=== PATIENT | female | born 1985 | race African-American/Black ===

== ENCOUNTER 2018-08-21 12:28 | Emergency (ER) | payer SELFPAY ==
--- NOTE | 2018-08-21 13:43 | ER Document Report ---
ED Medical Screen (RME) - General Chief Complaint: Blood Pressure Problem Stated Complaint: BLOOD PRESSURE CONCERNS Time Seen by Provider: 08/21/18 13:27 Primary Care Provider: NAREN MCKINNEY [Primary Care Provider] - Follow up as needed Notes: 33-year-old female complaining of headache and weakness onset last night with her high blood pressure. Patient admits a history of high blood pressure, states that this headache and weakness as well as dizziness is the same as it always is when her blood pressure gets high. She did call EMS, EMS recorded elevated blood pressures in the 150s and 160 systolic, this morning patient's blood pressure was 170s at home. Patient last took antihypertensives last night. States she took her usual hydrochlorothiazide. Has not taken any this morning. Patient does have a history of hypertension. TRAVEL OUTSIDE OF THE [place] IN LAST 30 DAYS: No - Related Data Allergies/Adverse Reactions: Penicillins Allergy (Verified 08/21/18 13:28) Past Medical History - General Information source: Patient - Social History Cigarette use (# per day): Yes Frequency of alcohol use: None Drug Abuse: None - Past Medical History Cardiac Medical History: Reports: Hx Hypertension Pulmonary Medical History: Reports: Hx Asthma Renal/ Medical History: Denies: Hx Peritoneal Dialysis - Immunizations Hx Diphtheria, Pertussis, Tetanus Vaccination: Yes Review of Systems - Review of Systems Cardiovascular: See HPI, Dizziness Neurological/Psychological: See HPI, Headaches Physical Exam - Vital signs Vitals: Temp Pulse Resp BP Pulse Ox 98.7 F 56 L 15 139/87 H 100 08/21/18 13:09 08/21/18 13:09 08/21/18 13:09 08/21/18 13:09 08/21/18 13:09 Interpretation: Bradycardic - Notes Notes: Generalsitting in a wheelchair, appears fatigued. Follows commands but slowly Neuro5 out of 5 muscle strength on the left, 4-5 muscle strength on the right bilateral upper and lower extremities. No facial droop. Oriented to person place and time. Course - Re-evaluation Re-evalutation: 08/21/18 13:42 Patient will be sent for CT scan given the focal neurologic deficits. She is out of timeframe for TPA. Providers in the main side of the emergency department notified. - Vital Signs Vital signs: Temp Pulse Resp BP Pulse Ox 98.7 F 56 L 15 139/87 H 100 08/21/18 13:09 08/21/18 13:09 08/21/18 13:09 08/21/18 13:09 08/21/18 13:09 Doctor's Discharge - Discharge Referrals: LOCALMD,NO [Primary Care Provider] - Follow up as needed
[2018-08-21 14:11] LABS: ABSOLUTE MONOCYTES (AUTO) 0.3 10^3/uL (0.1-1.4); ABSOLUTE NEUT (AUTO) 2.4 10^3/uL (1.7-8.2); BASOPHILS % (AUTO) 1.1 % (0-2); EOSINOPHILS % (AUTO) 0.6 % (0-6); HEMATOCRIT 40.1 % (36.0-47.0); HEMOGLOBIN 13.6 g/dL (12.0-15.5); LYMPHOCYTES % (AUTO) 27.8 % (13-45); MEAN CORPUSCULAR HEMOGLOBIN 29.6 pg (27.0-33.4); MEAN CORPUSCULAR HGB CONC 33.9 g/dL (32.0-36.0); MEAN CORPUSCULAR VOLUME 88 fl (80-97); MONOCYTES % (AUTO) 7.2 % (3-13); PLATELET COUNT 180 10^3/uL (150-450); RED BLOOD COUNT 4.58 10^6/uL (3.72-5.28); RED CELL DISTRIBUTION WIDTH 13.4 % (11.5-14.0); SEGMENTED NEUTROPHILS % (AUTO) 63.3 % (42-78); TOTAL CELLS COUNTED % (AUTO) 100 %; WHITE BLOOD COUNT 3.8 10^3/uL (4.0-10.5)
[2018-08-21 14:16] LABS: INTERNATIONAL RATION (INR) 1.03; PARTIAL THROMBOPLASTIN TIME 29.9 SEC (23.5-35.8)
[2018-08-21 14:32] LABS: ALANINE AMINOTRANSFERASE 32 U/L (9-52); ALBUMIN 4.4 g/dL (3.5-5.0); ALKALINE PHOSPHATASE 52 U/L (38-126); ANION GAP 8 (5-19); ASPARTATE AMINO TRANSFERASE 22 U/L (14-36); BILIRUBIN,DIRECT 0.1 mg/dL (0.0-0.4); BILIRUBIN,TOTAL 0.5 mg/dL (0.2-1.3); BLOOD UREA NITROGEN 14 mg/dL (7-20); CALCIUM 9.2 mg/dL (8.4-10.2); CARBON DIOXIDE 31 mmol/L (22-30); CHLORIDE 102 mmol/L (98-107); CREATINE KINASE 102 U/L (30-135); GLUCOSE 99 mg/dL (75-110); POTASSIUM 3.4 mmol/L (3.6-5.0); SODIUM 140.7 mmol/L (137-145); TOTAL PROTEIN 7.3 g/dL (6.3-8.2)
--- NOTE | 2018-08-21 14:39 | RADIOLOGY REPORT (SQ) ---
EXAM DESCRIPTION: CHEST SINGLE VIEW COMPLETED DATE/TIME: 08/21/2018 2:24 pm REASON FOR STUDY: right sided weakness, [place] COMPARISON: Chest x-ray 07/03/2007. EXAM PARAMETERS: NUMBER OF VIEWS: One view. TECHNIQUE: Single frontal radiographic view of the chest acquired. RADIATION DOSE: NA LIMITATIONS: The patient is in a lordotic position. FINDINGS: LUNGS AND PLEURA: No consolidation, pneumothorax or pleural effusion. MEDIASTINUM AND HILAR STRUCTURES: No masses. Contour normal. HEART AND VASCULAR STRUCTURES: Heart upper normal limit in size. Normal vasculature. BONES: No acute findings. HARDWARE: None in the chest. IMPRESSION: NO ACUTE RADIOGRAPHIC FINDING IN THE CHEST. TECHNICAL DOCUMENTATION: JOB ID: [id number] 2010 [employer]- All Rights Reserved Reading location - IP/workstation name: [email or web address]
[2018-08-21 14:44] LABS: CREATINE KINASE MB 0.31 ng/mL (<4.55)
--- NOTE | 2018-08-21 14:44 | RADIOLOGY REPORT (SQ) ---
EXAM DESCRIPTION: CT HEAD WITHOUT COMPLETED DATE/TIME: 08/21/2018 2:20 pm REASON FOR STUDY: right sided weakness, [place] COMPARISON: None. TECHNIQUE: Axial images acquired through the brain without intravenous contrast. Images reviewed wi th bone, brain and subdural windows. Images stored on PACS. All CT scanners at this facility use dose modulation, iterative reconstruction, and/or weight based d osing when appropriate to reduce radiation dose to as low as reasonably achievable (ALARA). [facility]: Dose Right [facility]: CareDose [facility]: Dose Right [facility]: Teradose 4D [facility]: [employer] RADIATION DOSE: CT Rad equipment meets quality standard of care and radiation dose reduction techniq ues were employed. CTDIvol: 53.2 mGy. DLP: 1150 mGy-cm. mGy. LIMITATIONS: None. FINDINGS: VENTRICLES: Normal size and contour. CEREBRUM: No mass effect. No hemorrhage. No midline shift. Normal espinoza/white matter differentiatio n. No evidence for acute territorial infarction. CEREBELLUM: No mass effect. No hemorrhage. No alteration of density. No evidence for acute infarct ion. EXTRAAXIAL SPACES: No fluid collections. ORBITS AND GLOBE: Symmetrical contour of the globes. CALVARIUM: No depressed skull fracture. PARANASAL SINUSES: No air-fluid level. Mucous retention cyst/polyp at the right maxillary sinus. SOFT TISSUES: No hematoma. IMPRESSION: No acute intracranial hemorrhage or acute territorial infarct. EVIDENCE OF ACUTE STROKE: NO. COMMENT: Quality ID # 436: Final reports with documentation of one or more dose reduction techniques (e.g., Automated exposure control, adjustment of the mA and/or kV according to patient size, use of iterative reconstruction technique) TECHNICAL DOCUMENTATION: JOB ID: [id number] [place]-[id number] 2010 [employer]- All Rights Reserved Reading location - IP/workstation name: [email or web address]
[2018-08-21 14:46] LABS: TROPONIN I < 0.012 ng/mL
--- NOTE | 2018-08-21 15:28 | ER Document Report ---
ED Blood Pressure Problem - General Chief Complaint: Blood Pressure Problem Stated Complaint: BLOOD PRESSURE CONCERNS Time Seen by Provider: 08/21/18 13:27 Primary Care Provider: [facility] [Provider Group] - Follow up as needed TRAVEL OUTSIDE OF THE [place] IN LAST 30 DAYS: No - Related Data Allergies/Adverse Reactions: Penicillins Allergy (Verified 08/21/18 13:28) Past Medical History - General Information source: Patient - Social History Smoking Status: Former Smoker Cigarette use (# per day): Yes Frequency of alcohol use: None Drug Abuse: None Family History: Reviewed & Not Pertinent Patient has suicidal ideation: No Patient has homicidal ideation: No - Past Medical History Cardiac Medical History: Reports: Hx Hypertension Pulmonary Medical History: Reports: Hx Asthma Renal/ Medical History: Denies: Hx Peritoneal Dialysis - Immunizations Hx Diphtheria, Pertussis, Tetanus Vaccination: Yes Physical Exam - Vital signs Vitals: Temp Pulse Resp BP Pulse Ox 98.7 F 56 L 15 139/87 H 100 08/21/18 13:09 08/21/18 13:09 08/21/18 13:09 08/21/18 13:09 08/21/18 13:09 Course - Vital Signs Vital signs: Temp Pulse Resp BP Pulse Ox 98.7 F 59 L 15 145/102 H 100 08/21/18 13:09 08/21/18 14:00 08/21/18 15:01 08/21/18 15:01 08/21/18 15:01 - Laboratory Result Diagrams: 08/21/18 14:01 08/21/18 14:01 Laboratory results interpreted by me: 08/21/18 08/21/18 14:01 14:01 WBC 3.8 L Potassium 3.4 L Carbon Dioxide 31 H Discharge - Discharge Clinical Impression: Headache Qualifiers: Headache type: unspecified Headache chronicity pattern: unspecified pattern Intractability: not intractable Qualified Code(s): R51 - Headache Hypertension Qualifiers: Hypertension type: unspecified Qualified Code(s): I10 - Essential (primary) hypertension Condition: Stable Disposition: HOME, SELF-CARE Instructions: Family Physicians / Practices, High Blood Pressure ([facility]) Additional Instructions: Please return to the emergency department if you have any worsening, or concern of your symptoms. Please return to the emergency department if you develop chest pain, difficulty breathing, severe abdominal pain, or ongoing vomiting. Please follow-up with your primary care physician in 2-3 days and any other recommended physicians. If prescribed, take all medications as directed. If you have any questions or concerns do not hesitate to return the emergency department for evaluation. Referrals: [facility] [Provider Group] - Follow up as needed
[2018-08-21] MEDS ORDERED: ACETAMINOPHEN 325 MG TABLET PO ONE (15:46)
--- NOTE | 2018-08-21 15:52 | ER Document Report ---
ED Blood Pressure Problem - General Chief Complaint: Blood Pressure Problem Stated Complaint: BLOOD PRESSURE CONCERNS Time Seen by Provider: 08/21/18 13:27 Primary Care Provider: NAREN MCKINNEY [Primary Care Provider] - Follow up as needed TRAVEL OUTSIDE OF THE [place] IN LAST 30 DAYS: No - HPI Notes: Patient is a 33-year-old female that presents to the emergency department for chief complaint of hypertension. Patient reports her blood pressure has been in the 160s 170s systolic at home over the last few days. She states she has had intermittent lightheadedness and headaches. She describes the headache as mild and diffuse. She has no associated vision changes nausea, vomiting, numbness or weakness. Patient does take hydrochlorothiazide and has been compliant with this medicine. She states she takes the 12.5 mg once daily. She does not currently have a primary care provider but states she has refills on this medicine. Past Medical History: Hypertension Past Surgical History: Reviewed in chart Social History: Denies tobacco and alcohol Family History: Reviewed and noncontributory for presenting illness Allergies: Reviewed, see documented allergy list. REVIEW OF SYSTEMS: CONSTITUTIONAL : No fever No chills No diaphoresis No recent illness EENT: No vision changes No congestion No sore throat CARDIOVASCULAR: No chest pain No palpitations RESPIRATORY: No shortness of breath No cough No difficulty breathing GASTROINTESTINAL: No abdominal pain No nausea No vomiting No diarrhea GENITOURINARY: No dysuria No hematuria No difficulty urinating MUSCULOSKELETAL: No back pain No leg pain No arm pain SKIN: No rashes No lesions LYMPHATIC: No swollen, enlarged glands. NEUROLOGICAL: lightheadedness headache No weakness No paresthesias PSYCHIATRIC: No anxiety No depression PHYSICAL EXAMINATION: Vital signs reviewed, nursing noted reviewed. GENERAL: Well-appearing, well-nourished and in no acute distress. HEAD: Atraumatic, normocephalic. EYES: Eyes appear normal, extraocular movements intact, sclera anicteric, conjunctiva are normal. ENT: nares patent, oropharynx clear without exudates. Moist mucous membranes. NECK: Normal range of motion, supple without lymphadenopathy LUNGS: Breath sounds clear to auscultation bilaterally and equal. No wheezes rales or rhonchi. HEART: Regular rate and rhythm without murmurs ABDOMEN: Soft, nontender, normoactive bowel sounds. No rebound, guarding, or rigidity. No masses appreciated. EXTREMITIES: Nontender, good range of motion, no pitting or edema. NEUROLOGICAL: No focal neurological deficits. Moves all extremities spontaneously Motor and sensory grossly intact on exam. PSYCH: Normal mood, normal affect. SKIN: Warm, Dry, normal turgor, no rashes or lesions noted on exposed skin - Related Data Allergies/Adverse Reactions: Penicillins Allergy (Verified 08/21/18 13:28) Past Medical History - General Information source: Patient - Social History Smoking Status: Former Smoker Cigarette use (# per day): Yes Frequency of alcohol use: None Drug Abuse: None Family History: Reviewed & Not Pertinent Patient has suicidal ideation: No Patient has homicidal ideation: No - Past Medical History Cardiac Medical History: Reports: Hx Hypertension Pulmonary Medical History: Reports: Hx Asthma Renal/ Medical History: Denies: Hx Peritoneal Dialysis - Immunizations Hx Diphtheria, Pertussis, Tetanus Vaccination: Yes Physical Exam - Vital signs Vitals: Temp Pulse Resp BP Pulse Ox 98.7 F 56 L 15 139/87 H 100 08/21/18 13:09 08/21/18 13:09 08/21/18 13:09 08/21/18 13:09 08/21/18 13:09 Course - Re-evaluation Re-evalutation: 08/21/18 15:51 Vitals reviewed. Nursing notes reviewed. Patient is afebrile and nontoxic in appearance. She states her headache is very mild and was given Tylenol for symptom medic management. CT brain shows no intracranial process. Patient had a complete cardiac workup which is normal. Her EKG shows sinus bradycardia but she is otherwise hemodynamically stable. Patient has refills on her hydrochlorothiazide and was encouraged to continue taking her medication. She did not require blood pressure management in the ED and her current blood pressure is 146/91. I did discuss low-sodium diet and taking Tylenol and Motrin as needed for symptoms as well as staying well-hydrated. Patient will be referred to primary care to establish for follow-up. She is in agreement with this and stable at discharge. Laboratory 08/21/18 08/21/18 08/21/18 14:01 14:01 14:01 WBC 3.8 L RBC 4.58 Hgb 13.6 Hct 40.1 MCV 88 MCH 29.6 MCHC 33.9 RDW 13.4 Plt Count 180 Seg Neutrophils % 63.3 Lymphocytes % 27.8 Monocytes % 7.2 Eosinophils % 0.6 Basophils % 1.1 Absolute Neutrophils 2.4 Absolute Lymphocytes 1.0 Absolute Monocytes 0.3 Absolute Eosinophils 0.0 Absolute Basophils 0.0 PT 14.0 INR 1.03 APTT 29.9 Sodium 140.7 Potassium 3.4 L Chloride 102 Carbon Dioxide 31 H Anion Gap 8 BUN 14 Creatinine 0.72 Est GFR ( Amer) > 60 Est GFR (Non-Af Amer) > 60 Glucose 99 Calcium 9.2 Total Bilirubin 0.5 Direct Bilirubin 0.1 Neonat Total Bilirubin Not Reportable Neonat Direct Bilirubin Not Reportable Neonat Indirect Bili Not Reportable AST 22 ALT 32 Alkaline Phosphatase 52 Creatine Kinase 102 CK-MB (CK-2) Troponin I Total Protein 7.3 Albumin 4.4 08/21/18 14:01 WBC RBC Hgb Hct MCV MCH MCHC RDW Plt Count Seg Neutrophils % Lymphocytes % Monocytes % Eosinophils % Basophils % Absolute Neutrophils Absolute Lymphocytes Absolute Monocytes Absolute Eosinophils Absolute Basophils PT INR APTT Sodium Potassium Chloride Carbon Dioxide Anion Gap BUN Creatinine Est GFR ( Amer) Est GFR (Non-Af Amer) Glucose Calcium Total Bilirubin Direct Bilirubin Neonat Total Bilirubin Neonat Direct Bilirubin Neonat Indirect Bili AST ALT Alkaline Phosphatase Creatine Kinase CK-MB (CK-2) 0.31 Troponin I < 0.012 Total Protein Albumin Chest X-Ray 08/21/18 13:37 IMPRESSION: NO ACUTE RADIOGRAPHIC FINDING IN THE CHEST. Head CT 08/21/18 13:37 IMPRESSION: No acute intracranial hemorrhage or acute territorial infarct. EVIDENCE OF ACUTE STROKE: NO. - Vital Signs Vital signs: Temp Pulse Resp BP Pulse Ox 98.7 F 59 L 15 145/102 H 100 08/21/18 13:09 08/21/18 14:00 08/21/18 15:01 08/21/18 15:01 08/21/18 15:01 - Laboratory Result Diagrams: 08/21/18 14:01 08/21/18 14:01 Laboratory results interpreted by me: 08/21/18 08/21/18 14:01 14:01 WBC 3.8 L Potassium 3.4 L Carbon Dioxide 31 H - EKG Interpretation by Me Additional EKG results interpreted by me: 08/21/18 15:52 Interpreted by myself [id number]: Sinus bradycardia, rate 50, normal axis, no ectopy, no STEMI Discharge - Discharge Clinical Impression: Hypertension Qualifiers: Hypertension type: unspecified Qualified Code(s): I10 - Essential (primary) hypertension Headache Qualifiers: Headache type: unspecified Headache chronicity pattern: unspecified pattern Intractability: not intractable Qualified Code(s): R51 - Headache Condition: Stable Disposition: HOME, SELF-CARE Instructions: High Blood Pressure ([facility]), Family Physicians / Practices Additional Instructions: Please return to the emergency department if you have any worsening, or concern of your symptoms. Please return to the emergency department if you develop chest pain, difficulty breathing, severe abdominal pain, or ongoing vomiting. Please follow-up with your primary care physician in 2-3 days and any other r ecommended physicians. If prescribed, take all medications as directed. If you have any questions or concerns do not hesitate to return the emergency department for evaluation. Referrals: [facility] [Provider Group] - Follow up as needed
[2018-08-21 16:14] VITALS: BP 132/100
--- NOTE | 2018-08-21 18:02 | EKG REPORT ---
SEVERITY:- BORDERLINE ECG - SINUS RHYTHM PROBABLE LEFT ATRIAL ABNORMALITY BORDERLINE T ABNORMALITIES, ANT-LAT LEADS : Confirmed by: Odalys Liu MD 21-Aug-2018 18:02:13
== END 2018-08-21 16:08 | disposition home or self-care (01) ==
LOC: ER 12:28
DX: I10 Essential (primary) hypertension (principal); R51 Headache; R42 Dizziness and giddiness; Z79.899 Other long term (current) drug therapy; Z87.891 Personal history of nicotine dependence; J45.909 Unspecified asthma, uncomplicated
CPT/HCPCS: 36415; 70450; 71045; 80053; 82550; 82553; 84484; 85025; 85610; 85730; 93005; 93010; 99284

== ENCOUNTER 2019-05-01 12:13 | Emergency (ER) | payer SELFPAY ==
--- NOTE | 2019-05-01 12:43 | ER Document Report ---
ED Medical Screen (RME) - General Chief Complaint: High Blood Pressure Stated Complaint: BLOOD PRESSURE ISSUES Time Seen by Provider: 05/01/19 12:31 Notes: Patient is a 34-year-old female who presents to the emergency department with a high blood pressure reading. Patient has a past medical history of hypertension and was supposed to be on blood pressure medications, but was not. Patient states that she felt nauseous yesterday. This morning she was brought to urgent care and her blood pressure was elevated. Patient also has complaints of right- sided numbness and weakness. The numbness and weakness started this morning. Patient also states that she has history of mass in her head that was diagnosed in [place] a few years ago. Exam: 4 out of 5 strength in right upper extremity. I have greeted and performed a rapid initial assessment of this patient. A comprehensive ED assessment and evaluation of the patient, analysis of test results and completion of medical decision making process will be conducted by an additional ED providers. TRAVEL OUTSIDE OF THE [place] IN LAST 30 DAYS: No - Related Data Allergies/Adverse Reactions: Penicillins Allergy (Verified 08/21/18 13:28) Past Medical History - Social History Chew tobacco use (# tins/day): No Frequency of alcohol use: None Drug Abuse: None - Past Medical History Cardiac Medical History: Reports: Hx Hypertension Pulmonary Medical History: Reports: Hx Asthma Renal/ Medical History: Denies: Hx Peritoneal Dialysis - Immunizations Hx Diphtheria, Pertussis, Tetanus Vaccination: Yes Physical Exam - Vital signs Vitals: Temp Pulse Resp BP Pulse Ox 97.9 F 65 18 146/87 H 100 05/01/19 12:27 05/01/19 12:27 05/01/19 12:27 05/01/19 12:27 05/01/19 12:27 Course - Vital Signs Vital signs: Temp Pulse Resp BP Pulse Ox 97.9 F 65 18 146/87 H 100 05/01/19 12:27 05/01/19 12:27 05/01/19 12:27 05/01/19 12:27 05/01/19 12:27
[2019-05-01 13:15] LABS: ABSOLUTE LYMPHOCYTES (AUTO) 1.3 10^3/uL (0.5-4.7); ABSOLUTE MONOCYTES (AUTO) 0.2 10^3/uL (0.1-1.4); ABSOLUTE NEUT (AUTO) 1.2 10^3/uL (1.7-8.2); BASOPHILS % (AUTO) 1.4 % (0-2); EOSINOPHILS % (AUTO) 1.3 % (0-6); HEMOGLOBIN 11.7 g/dL (12.0-15.5); LYMPHOCYTES % (AUTO) 47.2 % (13-45); MEAN CORPUSCULAR HEMOGLOBIN 27.9 pg (27.0-33.4); MEAN CORPUSCULAR HGB CONC 32.5 g/dL (32.0-36.0); MEAN CORPUSCULAR VOLUME 86 fl (80-97); MONOCYTES % (AUTO) 8.1 % (3-13); PLATELET COUNT 193 10^3/uL (150-450); RED BLOOD COUNT 4.21 10^6/uL (3.72-5.28); RED CELL DISTRIBUTION WIDTH 13.3 % (11.5-14.0); TOTAL CELLS COUNTED % (AUTO) 100 %; WHITE BLOOD COUNT 2.8 10^3/uL (4.0-10.5)
[2019-05-01 13:22] LABS: APPEARANCE,URINE SLIGHTLY-CLOUDY; BILIRUBIN,URINE NEGATIVE (NEGATIVE); COLOR,URINE YELLOW; GLUCOSE, URINE NEGATIVE (NEGATIVE); KETONES,URINE NEGATIVE (NEGATIVE); PROTEIN,URINE NEGATIVE (NEGATIVE); URINE SPECIFIC GRAVITY 1.014; UROBILINOGEN,URINE NEGATIVE mg/dL (<2.0)
--- NOTE | 2019-05-01 13:27 | RADIOLOGY REPORT (SQ) ---
EXAM DESCRIPTION: CT HEAD WITHOUT COMPLETED DATE/TIME: 05/01/2019 1:09 pm REASON FOR STUDY: weakness; headache COMPARISON: None. TECHNIQUE: Axial images acquired through the brain without intravenous contrast. Images reviewed wi th bone, brain and subdural windows. Images stored on PACS. All CT scanners at this facility use dose modulation, iterative reconstruction, and/or weight based d osing when appropriate to reduce radiation dose to as low as reasonably achievable (ALARA). [facility]: Dose Right [facility]: CareDose [facility]: Dose Right [facility]: Teradose 4D [facility]: [employer] LIMITATIONS: None. FINDINGS: There is no acute intracranial hemorrhage, vascular territorial infarct, extra-axial fluid collection, mass effect, or midline shift. There is no effacement of the cerebral sulci or basal diaz barachnoid cisterns. The espinoza-white matter differentiation is preserved. The caliber the ventricles is concordant with the degree of sulcation. The orbits and globes are intact. The paranasal sinuses are clear. There is no fracture of the calv arium. IMPRESSION: No acute intracranial abnormality. EVIDENCE OF ACUTE STROKE: NO. COMMENT: Quality ID # 436: Final reports with documentation of one or more dose reduction techniques (e.g., Automated exposure control, adjustment of the mA and/or kV according to patient size, use of iterative reconstruction technique) TECHNICAL DOCUMENTATION: JOB ID: [id number] [employer]- All Rights Reserved Reading location - IP/workstation name: [email or web address]
[2019-05-01 13:38] LABS: URINE AMPHETAMINES SCREEN NEGATIVE; URINE BARBITURATES SCREEN NEGATIVE; URINE BENZODIAZEPINES SCREEN NEGATIVE; URINE COCAINE SCREEN NEGATIVE; URINE MARIJUANA (THC) SCREEN NEGATIVE; URINE METHADONE SCREEN NEGATIVE; URINE PHENCYCLIDINE SCREEN NEGATIVE
[2019-05-01 13:41] LABS: ALBUMIN 3.8 g/dL (3.5-5.0); ALKALINE PHOSPHATASE 46 U/L (38-126); ANION GAP 6 (5-19); ASPARTATE AMINO TRANSFERASE 20 U/L (14-36); BILIRUBIN,TOTAL 0.6 mg/dL (0.2-1.3); BLOOD UREA NITROGEN 8 mg/dL (7-20); CALCIUM 8.6 mg/dL (8.4-10.2); CARBON DIOXIDE 29 mmol/L (22-30); CHLORIDE 102 mmol/L (98-107); GLUCOSE 89 mg/dL (75-110); POTASSIUM 3.7 mmol/L (3.6-5.0); TOTAL PROTEIN 6.9 g/dL (6.3-8.2)
--- NOTE | 2019-05-01 16:38 | ER Document Report ---
ED General - General Chief Complaint: High Blood Pressure Stated Complaint: BLOOD PRESSURE ISSUES Time Seen by Provider: 05/01/19 12:31 Primary Care Provider: JERRY DARLING MD [COMMUNITY BASED STAFF] - Follow up in 3-5 days Mode of Arrival: Medic Information source: Patient, Emergency Med Personnel Notes: This 34-year-old female with history of high blood pressure presents to the emergency department with high blood pressure. Reports she woke up this morning felt a little bit woozy with a right side [place] and also felt like her right side was numb weak. She reports her right side just felt funny. Patient reports she does have a history of high blood pressure was on medications a couple years ago but she ran out and never followed back up with her primary care provider. She denies trauma. She denies other symptoms such as fever vomiting diarrhea today but reports she did vomit this Wednesday a couple times none yesterday and she was eating normal. Reports both her mother and father had strokes and she is not sure when. Patient went to urgent care was sent over here via EMS. Patient was given a dose of clonidine prior to arrival. Blood pressure at current is 145/94 TRAVEL OUTSIDE OF THE [place] IN LAST 30 DAYS: No - HPI Onset: This morning Onset/Duration: Sudden Quality of pain: No pain Severity: None Associated symptoms: None Exacerbated by: Denies Relieved by: Denies Similar symptoms previously: Yes Recently seen / treated by doctor: Yes - Related Data Allergies/Adverse Reactions: Penicillins Allergy (Verified 08/21/18 13:28) Past Medical History - General Information source: Patient Last Menstrual Period: 2 weeks ago - Social History Smoking Status: Never Smoker Chew tobacco use (# tins/day): No Frequency of alcohol use: None Drug Abuse: None Lives with: Family Family History: CVA - 1713 Patient has suicidal ideation: No Patient has homicidal ideation: No - Past Medical History Cardiac Medical History: Reports: Hx Hypertension Pulmonary Medical History: Reports: Hx Asthma Renal/ Medical History: Denies: Hx Peritoneal Dialysis Surgical Hx: Negative - Immunizations Hx Diphtheria, Pertussis, Tetanus Vaccination: Yes Review of Systems - Review of Systems Notes: Review HPI for review of systems., All other systems negative Physical Exam - Vital signs Vitals: Temp Pulse Resp BP Pulse Ox 97.9 F 65 18 146/87 H 100 05/01/19 12:27 05/01/19 12:27 05/01/19 12:27 05/01/19 12:27 05/01/19 12:27 - General General appearance: Appears well In distress: None - HEENT Head: Normocephalic Eyes: Normal Conjunctiva: Normal Extraocular movements intact: Yes Pupils: PERRL Ears: Normal External canal: Normal Tympanic membrane: Normal Nasal: Normal Mouth/Lips: Normal Mucous membranes: Moist Pharynx: Normal Neck: Normal, Supple. No: Lymphadenopathy - Respiratory Respiratory status: No respiratory distress Chest status: Nontender Breath sounds: Normal Chest palpation: Normal - Cardiovascular Rhythm: Regular Heart sounds: Normal auscultation Murmur: No - Abdominal Inspection: Normal Distension: No distension Tenderness: Nontender Organomegaly: No organomegaly - Back Back: Normal, Nontender - Extremities General upper extremity: Normal ROM General lower extremity: Normal ROM, Normal strength - Neurological Neuro grossly intact: Yes Cognition: Normal Orientation: AAOx4 [place] Coma Scale Eye Opening: Spontaneous [place] Coma Scale Verbal: Oriented [place] Coma Scale Motor: Obeys Commands Kuldip Coma Scale Total: 15 Speech: Normal Cranial nerves: Normal Cerebellar coordination: No: Gait ataxia Motor strength normal: LUE, LLE Additional motor exam normals: Weakness - right hand, right leg Sensory: Normal Course - Re-evaluation Re-evalutation: 05/01/19 16:42 This 34-year-old female presents emergency department via EMS for reports of high blood pressure. Upon assessment patient mentioned she had weakness to her right hand and right foot. Patient reports she is to have a mass in her brain but she had another CT and it was negative. CTA CT MRI was completed everything was negative. Labs unremarkable. After review with Dr. Hunt he went in and assessed patient. Patient admitted she is had the right hand and leg weakness for years. She was advised on the importance of follow-up for her blood pressure. Patient reports she is to take hydrochlorothiazide 25 mg a day. She verbalized understanding to all instructions. 05/01/19 12:55 05/01/19 12:55 MCV 86 fl (80-97) 05/01/19 12:55 MCH 27.9 pg (27.0-33.4) 05/01/19 12:55 MCHC 32.5 g/dL (32.0-36.0) 05/01/19 12:55 RDW 13.3 % (11.5-14.0) 05/01/19 12:55 Seg Neutrophils % 42.0 % (42-78) 05/01/19 12:55 Chloride 102 mmol/L (98-107) 05/01/19 12:55 Carbon Dioxide 29 mmol/L (22-30) 05/01/19 12:55 Anion Gap 6 (5-19) 05/01/19 12:55 Est GFR ( Amer) > 60 (>60) 05/01/19 12:55 Glucose 89 mg/dL (75-110) 05/01/19 12:55 Calcium 8.6 mg/dL (8.4-10.2) 05/01/19 12:55 Total Bilirubin 0.6 mg/dL (0.2-1.3) 05/01/19 12:55 AST 20 U/L (14-36) 05/01/19 12:55 Alkaline Phosphatase 46 U/L (38-126) 05/01/19 12:55 Total Protein 6.9 g/dL (6.3-8.2) 05/01/19 12:55 Albumin 3.8 g/dL (3.5-5.0) 05/01/19 12:55 Serum HCG, Qual NEGATIVE (NEGATIVE) 05/01/19 12:55 Urine Color YELLOW 05/01/19 12:55 Urine Appearance SLIGHTLY-CLOUDY 05/01/19 12:55 Urine pH 7.0 (5.0-9.0) 05/01/19 12:55 Ur Specific [place] 1.014 05/01/19 12:55 Urine Protein NEGATIVE mg/dL (NEGATIVE) 05/01/19 12:55 Urine Glucose (UA) NEGATIVE mg/dL (NEGATIVE) 05/01/19 12:55 Urine Ketones NEGATIVE mg/dL (NEGATIVE) 05/01/19 12:55 Urine Blood NEGATIVE (NEGATIVE) 05/01/19 12:55 Urine RBC (Auto) 0 /HPF 05/01/19 12:55 05/01/19 19:[address] 05/01/19 12:40 IMPRESSION: No acute intracranial abnormality. EVIDENCE OF ACUTE STROKE: NO. Head CTA 05/01/19 16:24 IMPRESSION: NO CTA EVIDENCE OF STENOSIS OR ANEURYSM OF THE [place]. Head MRI 05/01/19 16:24 IMPRESSION: NORMAL MRI OF THE BRAIN WITHOUT INTRAVENOUS GADOLINIUM CONTRAST. EVIDENCE OF ACUTE STROKE: NO. Neck CTA 05/01/19 16:31 IMPRESSION: NORMAL CTA OF THE EXTRA-CRANIAL CAROTID AND VERTEBRAL ARTERIES. - Vital Signs Vital signs: Temp Pulse Resp BP Pulse Ox 98.2 F 55 L 20 147/89 H 100 05/01/19 19:48 05/01/19 19:48 05/01/19 19:48 05/01/19 19:48 05/01/19 19:48 - Laboratory Result Diagrams: 05/01/19 12:55 05/01/19 12:55 Laboratory results interpreted by me: 05/01/19 05/01/19 05/01/19 12:55 12:55 12:55 WBC 2.8 L Hgb 11.7 L Lymph % (Auto) 47.2 H Absolute Neuts (auto) 1.2 L Sodium 136.9 L Leukocyte Esterase Rfl TRACE H - Diagnostic Test Radiology reviewed: Image reviewed, Reports reviewed Discharge - Discharge Clinical Impression: chronic right side weakness High blood pressure Qualifiers: Hypertension type: unspecified Qualified Code(s): I10 - Essential (primary) hypertension Condition: Stable Disposition: HOME, SELF-CARE Instructions: High Blood Pressure, Requiring Treatment ([facility]), Hydroc hlorothiazide ([facility]) Additional Instructions: *You have been evaluated for high blood pressure, chronic right sided weakness *Take medication as prescribed *monitor your blood pressure *Follow up with a primary care provider within one week *Return to ED for worsening condition, changes, needs Monitor your blood pressure. Your blood pressure was elevated today. This may be because you were anxious, in pain or because you need medication. It is important to follow up with your primary care provider for full evaluation. Prescriptions: Hydrochlorothiazide [Hydrodiuril 12.5 mg Tablet] 12.5 mg PO QAM #30 capsule Forms: Elevated Blood Pressure Referrals: JERRY DARLING MD [COMMUNITY BASED STAFF] - Follow up in 3-5 days
--- NOTE | 2019-05-01 17:50 | RADIOLOGY REPORT (SQ) ---
EXAM DESCRIPTION: CTA HEAD COMPLETED DATE/TIME: 05/01/2019 5:36 pm REASON FOR STUDY: HTN, weakness, numbness/tingling COMPARISON: CT head 05/01/2019 TECHNIQUE: Post IV contrast scanning, thin section axial imaging through the brain to evaluate the a rterial structures. Source and MIP images are saved and reviewed on PACS. Advanced 3D imaging as volume-rendering, MIPs, SSD performed? yes All CT scanners at this facility use dose modulation, iterative reconstruction, and/or weight based d osing when appropriate to reduce radiation dose to as low as reasonably achievable (ALARA). [facility]: Dose Right [facility]: CareDose [facility]: Dose Right [facility]: Teradose 4D [facility]: [employer] CONTRAST TYPE AND DOSE: contrast/concentration: Isovue 350.00 mg/ml; Total Contrast Delivered: 70.0 ml; Total Saline Delivered: 61.9 ml RENAL FUNCTION: BUN 8 creatinine 0.61 LIMITATIONS: None. FINDINGS: [place]: The anterior, middle, posterior cerebral arteries are all patent. No ev idence of aneurysm or focal stenosis. POSTERIOR CIRCULATION: The distal vertebral arteries are patent as is the basilar artery. No aneurysm . BRAIN: No gross enhancing lesions as visualized. The superior cerebral hemispheres are not included in the field of view. BONES: Intact as visualized. SINUSES: No fluid or mucosal thickening. OTHER: No other significant finding. IMPRESSION: NO CTA EVIDENCE OF STENOSIS OR ANEURYSM OF THE [place] OF [place]. TECHNICAL DOCUMENTATION: JOB ID: [id number] Quality ID # [id number]: Final reports with documentation of one or more dose reduction techniques (e.g., Au tomated exposure control, adjustment of the mA and/or kV according to patient size, use of iterative reconstruction technique) 2010 [employer]- All Rights Reserved Reading location - IP/workstation name: [email or web address]
--- NOTE | 2019-05-01 17:53 | RADIOLOGY REPORT (SQ) ---
EXAM DESCRIPTION: CTA NECK COMPLETED DATE/TIME: 05/01/2019 5:36 pm REASON FOR STUDY: HTN, WEAKNESS/NUMBNESS AND TINGLING COMPARISON: None. TECHNIQUE: Axial dynamic scanning technique with dynamic contrast enhancement through the extra-vessel scrapper nial carotid and vertebral arteries. Multiplanar reconstruction. 3-D MIPS and Volume-rendered imag es acquired at the workstation and saved to PACS. Images are reviewed in soft tissue, bone, lung w indows. All CT scanners at this facility use dose modulation, iterative reconstruction, and/or weight based d osing when appropriate to reduce radiation dose to as low as reasonably achievable (ALARA). [facility]: Dose Right [facility]: CareDose [facility]: Dose Right [facility]: Teradose 4D [facility]: [employer] CONTRAST TYPE AND DOSE: 70 mL Omnipaque 350- low osmolar. RENAL FUNCTION: BUN 8 creatinine 0.61 LIMITATIONS: None. FINDINGS: AORTIC ARCH: Normal three-vessel origin. Bilateral subclavian arteries are patent. No d issection. RIGHT CAROTIDS: Patent common, internal and external carotid arteries without suggestion of significa nt stenosis or irregular plaque. No dissection. RIGHT VERTEBRAL: Patent. No dissection. LEFT CAROTIDS: Patent common, internal and external carotid arteries without suggestion of significan t stenosis or irregular plaque. No dissection. LEFT VERTEBRAL: Patent. No dissection. OTHER: No other significant finding. OTHER: 3-D reconstructions confirm findings. IMPRESSION: NORMAL CTA OF THE EXTRA-CRANIAL CAROTID AND VERTEBRAL ARTERIES. COMMENT: Quality ID #[id number]: Measurements of distal internal carotid diameter were used as the denomina tor for stenosis measurement. TECHNICAL DOCUMENTATION: JOB ID: [id number] Quality ID # 436: Final reports with documentation of one or more dose reduction techniques (e.g., Au tomated exposure control, adjustment of the mA and/or kV according to patient size, use of iterative reconstruction technique) 2010 [employer]- All Rights Reserved Reading location - IP/workstation name: [email or web address]
--- NOTE | 2019-05-01 19:30 | RADIOLOGY REPORT (SQ) ---
EXAM DESCRIPTION: MRI HEAD WITHOUT COMPLETED DATE/TIME: 05/01/2019 7:16 pm REASON FOR STUDY: HTN, weakness, numbness/tingling COMPARISON: None. TECHNIQUE: Multiplanar imaging includes non-contrasted T1, T2, FLAIR, and diffusion with ADC map seq uences. Images stored on PACS. LIMITATIONS: None. FINDINGS: ANATOMY: No anomalies. Normal vascular flow voids. Pituitary fossa normal. CSF SPACES: Normal in size and contour. No hemorrhage. CEREBRUM: Sulci and gyri normal in size and contour. Normal white matter signal on FLAIR imaging. No evidence of hemorrhage, mass, or extraaxial fluid collection. POSTERIOR FOSSA: No signal alteration. No hemorrhage. No edema, masses or mass effect. Internal christiana tory canals, cerebello-pontine angles, mastoids normal. DIFFUSION IMAGING: Negative for acute or sub-acute infarction. ORBITS: No masses. Globes normal. PARANASAL SINUSES: No fluid levels. Mucosa normal. OTHER: No other significant finding. IMPRESSION: NORMAL MRI OF THE BRAIN WITHOUT INTRAVENOUS GADOLINIUM CONTRAST. EVIDENCE OF ACUTE STROKE: NO. TECHNICAL DOCUMENTATION: JOB ID: [id number] [employer]- All Rights Reserved Reading location - IP/workstation name: [email or web address]
[2019-05-01 20:05] VITALS: BP 147/89
== END 2019-05-01 20:21 | disposition home or self-care (01) ==
LOC: ER 12:13
DX: I10 Essential (primary) hypertension (principal); R53.1 Weakness; R51 Headache; J45.909 Unspecified asthma, uncomplicated; Z88.0 Allergy status to penicillin; Z82.3 Family history of stroke
CPT/HCPCS: 36415; 70450; 70496; 70498; 70551; 80053; 80307; 81001; 84703; 85025; 87086; 99284

== ENCOUNTER 2019-09-01 09:54 | Emergency (ER) | payer BC ==
--- NOTE | 2019-09-01 10:38 | ER Document Report ---
ED Medical Screen (RME) - General Chief Complaint: Headache Stated Complaint: NUMBNESS Time Seen by Provider: 09/01/19 10:30 Primary Care Provider: CAROLINA CELESTE FNP-C [Primary Care Provider] - Follow up as needed Notes: HPI: 34-year-old female presenting with some right-sided headache with facial droop. States she woke up with a headache. Patient states she gets headaches like this approximately once a month. States she is working on following up with a neurologist for management or evaluation of these headaches. States she has been here before for similar headaches. No slurred speech per the patient. No difficulty eating or drinking. Has no numbness or tingling in the extremities at this time. No chest pain. Patient is a poor historian I have greeted and performed a rapid initial assessment of this patient. A comprehensive ED assessment and evaluation of the patient, analysis of test results and completion of the medical decision making process will be conducted by additional ED providers PHYSICAL EXAMINATION: GENERAL: Well-appearing, well-nourished and in mild acute distress. HEAD: Atraumatic, normocephalic. EYES: sclera anicteric, conjunctiva are normal. ENT: Moist mucous membranes. NECK: Normal range of motion LUNGS: Normal work of breathing, clear to auscultation HEART: 2+ radial pulses bilaterally, regular rate and rhythm ABD: limited by positioning for exam in triage. EXTREMITIES: no pitting or edema. No cyanosis. NEUROLOGICAL: Patient does appear to have a right facial droop involving forehead cheek and mandible. Patient has decreased sensation in the right face relative to the left on exam. Strength is equal 5/5 bilateral upper and lower extremities PSYCH: Normal mood, normal affect. SKIN: Warm, Dry, normal turgor, no rashes or lesions noted. Patient had normal CT of the head as well as MRI of the head in May 2019 TRAVEL OUTSIDE OF THE [place] IN LAST 30 DAYS: No - Related Data Allergies/Adverse Reactions: Penicillins Allergy (Verified 09/01/19 10:29) Past Medical History - Social History Chew tobacco use (# tins/day): No Drug Abuse: None - Past Medical History Cardiac Medical History: Reports: Hx Hypertension Pulmonary Medical History: Reports: Hx Asthma Renal/ Medical History: Denies: Hx Peritoneal Dialysis - Immunizations Hx Diphtheria, Pertussis, Tetanus Vaccination: Yes Physical Exam - Vital signs Vitals: Temp Pulse Resp BP Pulse Ox 97.9 F 72 16 132/90 H 100 09/01/19 09:58 09/01/19 09:58 09/01/19 09:58 09/01/19 09:58 09/01/19 09:58 Course - Vital Signs Vital signs: Temp Pulse Resp BP Pulse Ox 97.9 F 72 16 132/90 H 100 09/01/19 09:58 09/01/19 09:58 09/01/19 09:58 09/01/19 09:58 09/01/19 09:58 Doctor's Discharge - Discharge Referrals: CAROLINA CELESTE, [employer]-C [Primary Care Provider] - Follow up as needed
[2019-09-01] MEDS ORDERED: ONDANSETRON 4 MG TAB.RAPDIS PO ONE (10:59)
--- NOTE | 2019-09-01 11:10 | RADIOLOGY REPORT (SQ) ---
EXAM DESCRIPTION: CT HEAD WITHOUT COMPLETED DATE/TIME: 09/01/2019 11:01 am REASON FOR STUDY: headache/facial droop COMPARISON: 05/01/2019 TECHNIQUE: Axial images acquired through the brain without intravenous contrast. Images reviewed wi th bone, brain and subdural windows. Additional sagittal and coronal reconstructions were generated. Images stored on PACS. All CT scanners at this facility use dose modulation, iterative reconstruction, and/or weight based d osing when appropriate to reduce radiation dose to as low as reasonably achievable (ALARA). [facility]: Dose Right [facility]: CareDose [facility]: Dose Right [facility]: Teradose 4D [facility]: [employer] RADIATION DOSE: CT Rad equipment meets quality standard of care and radiation dose reduction techniq ues were employed. CTDIvol: 53.2 mGy. DLP: 1070 mGy-cm. mGy. LIMITATIONS: None. FINDINGS: VENTRICLES: Normal size and contour. CEREBRUM: No masses. No hemorrhage. No midline shift. No evidence for acute infarction. Normal gra y/white matter differentiation. No areas of low density in the white matter. CEREBELLUM: No masses. No hemorrhage. No alteration of density. No evidence for acute infarction. EXTRAAXIAL SPACES: No fluid collections. No masses. ORBITS AND GLOBE: No intra- or extraconal masses. Normal contour of globe without masses. CALVARIUM: No fracture. PARANASAL SINUSES: No fluid or mucosal thickening. SOFT TISSUES: No mass or hematoma. OTHER: Incomplete fusion of the posterior arch of C1. IMPRESSION: NORMAL BRAIN CT WITHOUT CONTRAST. EVIDENCE OF ACUTE STROKE: NO. COMMENT: Quality ID # [id number]: Final reports with documentation of one or more dose reduction techniques (e.g., Automated exposure control, adjustment of the mA and/or kV according to patient size, use of iterative reconstruction technique) TECHNICAL DOCUMENTATION: JOB ID: [id number] 2010 [employer]- All Rights Reserved Reading location - IP/workstation name: [email or web address]
[2019-09-01 11:24] LABS: ABSOLUTE EOSINOPHILS # (AUTO) 0.1 10^3/uL (0.0-0.6); ABSOLUTE LYMPHOCYTES (AUTO) 1.2 10^3/uL (0.5-4.7); ABSOLUTE MONOCYTES (AUTO) 0.2 10^3/uL (0.1-1.4); ABSOLUTE NEUT (AUTO) 1.5 10^3/uL (1.7-8.2); BASOPHILS % (AUTO) 1.1 % (0-2); EOSINOPHILS % (AUTO) 2.3 % (0-6); HEMATOCRIT 35.1 % (36.0-47.0); HEMOGLOBIN 11.9 g/dL (12.0-15.5); LYMPHOCYTES % (AUTO) 39.2 % (13-45); MEAN CORPUSCULAR VOLUME 86 fl (80-97); MONOCYTES % (AUTO) 7.4 % (3-13); PLATELET COUNT 225 10^3/uL (150-450); RED BLOOD COUNT 4.11 10^6/uL (3.72-5.28); RED CELL DISTRIBUTION WIDTH 13.6 % (11.5-14.0); TOTAL CELLS COUNTED % (AUTO) 100 %
[2019-09-01 11:32] LABS: INTERNATIONAL RATION (INR) 0.98
[2019-09-01 11:48] LABS: ALKALINE PHOSPHATASE 50 U/L (38-126); ANION GAP 7 (5-19); ASPARTATE AMINO TRANSFERASE 22 U/L (14-36); BILIRUBIN,DIRECT 0.3 mg/dL (0.0-0.4); BILIRUBIN,TOTAL 0.5 mg/dL (0.2-1.3); BLOOD UREA NITROGEN 12 mg/dL (7-20); CALCIUM 8.7 mg/dL (8.4-10.2); CARBON DIOXIDE 31 mmol/L (22-30); CHLORIDE 100 mmol/L (98-107); GLUCOSE 100 mg/dL (75-110); POTASSIUM 3.6 mmol/L (3.6-5.0); TOTAL PROTEIN 7.4 g/dL (6.3-8.2)
[2019-09-01] MEDS ORDERED: ACETAMINOPHEN 325 MG TABLET PO ONE (12:54)
--- NOTE | 2019-09-01 13:03 | ER Document Report ---
ED General - General Chief Complaint: Headache Stated Complaint: NUMBNESS Time Seen by Provider: 09/01/19 10:30 Primary Care Provider: CAROLINA CELESTE FNP-C [NO LOCAL MD] - Follow up in 3-5 days Mode of Arrival: Ambulatory Information source: Patient Notes: 34-year-old female presents emergency department with complaints of right-sided headache and numbness to the right side. Patient reports she has this on a monthly basis. She reports she has had it for years. Patient was evaluated in 2019 for the same symptoms here at [facility]. Patient reports she has never followed up with a neurologist. Patient also reports history of high blood pressure. She reports she takes a little blue pill that was prescribed to her from urgent care. She reports she does not have a primary care provider. Reports she vomited 1 time prior to arrival due to the pain. Has not taken anything for the pain because she reports it never helps. TRAVEL OUTSIDE OF THE [place] IN LAST 30 DAYS: No - HPI Onset: Other Onset/Duration: Persistent Quality of pain: Achy Associated symptoms: Headache, Nausea, Vomiting Exacerbated by: Denies Relieved by: Denies Similar symptoms previously: Yes Recently seen / treated by doctor: No - Related Data Allergies/Adverse Reactions: Penicillins Allergy (Verified 09/01/19 10:29) Past Medical History - General Information source: Patient Last Menstrual Period: 3 weeks ago - Social History Smoking Status: Never Smoker Chew tobacco use (# tins/day): No Frequency of alcohol use: None Drug Abuse: None Occupation: [employer] Lives with: Family Family History: CVA - 1713 Patient has suicidal ideation: No Patient has homicidal ideation: No - Past Medical History Cardiac Medical History: Reports: Hx Hypertension Pulmonary Medical History: Reports: Hx Asthma Neurological Medical History: Reports: Other - headaches Renal/ Medical History: Denies: Hx Peritoneal Dialysis Surgical Hx: Negative - Immunizations Hx Diphtheria, Pertussis, Tetanus Vaccination: Yes Review of Systems - Review of Systems Notes: Review HPI for review of systems., All other systems negative Physical Exam - Vital signs Vitals: Temp Pulse Resp BP Pulse Ox 97.9 F 72 16 132/90 H 100 09/01/19 09:58 09/01/19 09:58 09/01/19 09:58 09/01/19 09:58 09/01/19 09:58 - General General appearance: Appears well In distress: None - HEENT Head: Normocephalic Eyes: Normal Conjunctiva: Normal Extraocular movements intact: Yes Pupils: PERRL Ears: Normal External canal: Normal Tympanic membrane: Normal Nasal: Normal Mouth/Lips: Normal Mucous membranes: Normal, Moist Pharynx: Normal. No: Erythema Neck: Normal, Supple. No: Lymphadenopathy - Respiratory Respiratory status: No respiratory distress Chest status: Nontender Breath sounds: Normal Chest palpation: Normal - Cardiovascular Rhythm: Regular Heart sounds: Normal auscultation Murmur: No - Abdominal Inspection: Normal Distension: No distension Bowel sounds: Normal Tenderness: Nontender Organomegaly: No organomegaly - Back Back: Normal - Extremities General upper extremity: Normal ROM General lower extremity: Normal ROM - Neurological Neuro grossly intact: Yes Cognition: Normal Orientation: AAOx4 [place] Coma Scale Eye Opening: Spontaneous [place] Coma Scale Verbal: Oriented [place] Coma Scale Motor: Obeys Commands K[place] Coma Scale Total: 15 Speech: Normal Cranial nerves: Normal Motor strength normal: LUE, LLE Additional motor exam normals: Weakness - right hand right leg - Psychological Associated symptoms: Normal affect, Normal mood - Skin Skin Temperature: Warm Skin Moisture: Dry Skin Color: Normal Course - Re-evaluation Re-evalutation: 09/01/19 13:48 34-year-old female presents emergency department with right-sided headache with vomiting 1 time, with right-sided weakness. Patient reports she has this heada larry and weakness on a monthly basis, has had it for years. She has been evaluated here in the emergency department for the same symptoms. In May [address], CTA, MRI for the same complaints. She was advised to follow-up with neurology that she never did. Patient reports headache started on the right side this morning. Patient did not take anything for headache. She received Zofran and Tylenol upon to arrival to the ED. Patient reports she does not have a primary care provider. She does take some to blue pill for possible blood pressure that she received from urgent care.. Labs are unremarkable CT is negative for acute stroke or injury. Patient reports her headaches a little bit better. Mother is in the room. Patient and mother were instructed on the importance of follow-up with primary care provider for referral neurology. They both verbalized understanding. Laboratory 09/01/19 09/01/19 09/01/19 10:45 10:45 10:45 WBC 3.0 L RBC 4.11 Hgb 11.9 L Hct 35.1 L MCV 86 MCH 29.0 MCHC 34.0 RDW 13.6 Plt Count 225 Lymph % (Auto) 39.2 [place] % (Auto) 7.4 Eos % (Auto) 2.3 Baso % (Auto) 1.1 Absolute Neuts (auto) 1.5 L Absolute Lymphs (auto) 1.2 Absolute Monos (auto) 0.2 Absolute Eos (auto) 0.1 Absolute Basos (auto) 0.0 Seg Neutrophils % 50.0 PT 13.0 INR 0.98 Sodium 138.2 Potassium 3.6 Chloride 100 Carbon Dioxide 31 H Anion Gap 7 BUN 12 Creatinine 0.65 Est GFR ( Amer) > 60 Est GFR (MDRD) Non-Af > 60 Glucose 100 Calcium 8.7 Total Bilirubin 0.5 Direct Bilirubin 0.3 Neonat Total Bilirubin Not Reportable Neonat Direct Bilirubin Not Reportable Neonat Indirect Bili Not Reportable AST 22 ALT 15 Alkaline Phosphatase 50 Total Protein 7.4 Albumin 4.0 Serum HCG, Qual Urine Opiates Screen Urine Methadone Screen Ur Barbiturates Screen Ur Phencyclidine Scrn Ur Amphetamines Screen U Benzodiazepines Scrn Urine Cocaine Screen U Marijuana (THC) Screen 09/01/19 09/01/19 10:45 12:50 WBC RBC Hgb Hct MCV MCH MCHC RDW Plt Count Lymph % (Auto) [place] % (Auto) Eos % (Auto) Baso % (Auto) Absolute Neuts (auto) Absolute Lymphs (auto) Absolute Monos (auto) Absolute Eos (auto) Absolute Basos (auto) Seg Neutrophils % PT INR Sodium Potassium Chloride Carbon Dioxide Anion Gap BUN Creatinine Est GFR ( Amer) Est GFR (MDRD) Non-Af Glucose Calcium Total Bilirubin Direct Bilirubin Neonat Total Bilirubin Neonat Direct Bilirubin Neonat Indirect Bili AST ALT Alkaline Phosphatase Total Protein Albumin Serum HCG, Qual NEGATIVE Urine Opiates Screen NEGATIVE Urine Methadone Screen NEGATIVE Ur Barbiturates Screen NEGATIVE Ur Phencyclidine Scrn NEGATIVE Ur Amphetamines Screen NEGATIVE U Benzodiazepines Scrn NEGATIVE Urine Cocaine Screen NEGATIVE U Marijuana (THC) Screen NEGATIVE Head CT 09/01/19 10:34 IMPRESSION: NORMAL BRAIN CT WITHOUT CONTRAST. EVIDENCE OF ACUTE STROKE: NO. - Vital Signs Vital signs: Temp Pulse Resp BP Pulse Ox 98.1 F 72 18 117/78 100 09/01/19 14:49 09/01/19 14:49 09/01/19 14:49 09/01/19 14:49 09/01/19 14:49 - Laboratory Result Diagrams: 09/01/19 10:45 09/01/19 10:45 Laboratory results interpreted by me: 09/01/19 09/01/19 10:45 10:45 WBC 3.0 L Hgb 11.9 L Hct 35.1 L Absolute Neuts (auto) 1.5 L Carbon Dioxide 31 H - Diagnostic Test Radiology reviewed: Reports reviewed Discharge - Discharge Clinical Impression: Headache, Right sided weakness Condition: Stable Disposition: HOME, SELF-CARE Instructions: Acetaminophen, Antinausea Medication ([facility]), Headache ([facility]), Neurologist Additional Instructions: *You have been evaluated for Headache, right side weakness *Your labs and CT were unremarkable today Monitor your blood pressure *Follow up with a primary care provider within one week for treatment of your blood pressure and referral to neurologist *Take Tylenol or Motrin as indicated for headache *Take Zofran as indicated for nausea *Return to ED for worsening condition, changes, needs Forms: Return to Work Referrals: CAROLINA CELESTE, [employer]-C [NO LOCAL MD] - Follow up in 3-5 days
[2019-09-01 13:24] LABS: URINE AMPHETAMINES SCREEN NEGATIVE; URINE BENZODIAZEPINES SCREEN NEGATIVE; URINE COCAINE SCREEN NEGATIVE; URINE MARIJUANA (THC) SCREEN NEGATIVE; URINE METHADONE SCREEN NEGATIVE; URINE PHENCYCLIDINE SCREEN NEGATIVE
[2019-09-01 13:32] LABS: URINE BARBITURATES SCREEN NEGATIVE
[2019-09-01] MEDS ORDERED: ONDANSETRON ODT 4 MG TAB (6 TAB/ER DISP) PO PRN (13:52)
[2019-09-01 14:51] VITALS: BP 117/78
== END 2019-09-01 14:51 | disposition home or self-care (01) ==
LOC: ER 09:54
DX: R51 Headache (principal); R20.0 Anesthesia of skin; R53.1 Weakness; R11.2 Nausea with vomiting, unspecified; I10 Essential (primary) hypertension
CPT/HCPCS: 99284; 36415; 84703; 85025; 85610; 80053; 80307; 70450; S0119

== ENCOUNTER 2020-05-10 10:37 | Emergency (ER) | payer BC ==
[2020-05-10] MEDS ORDERED: ONDANSETRON HCL INJ/PF 4 MG/2 ML SDV IV ONE ×2 (11:04→15:10)
--- NOTE | 2020-05-10 11:07 | ER Document Report ---
ED Medical Screen (RME) - General Chief Complaint: Nausea/Vomiting/Diarrhea Stated Complaint: VOMITING,WEAKNESS,MUSCLE PAIN Time Seen by Provider: 05/10/20 10:53 Mode of Arrival: Wheelchair Information source: Patient, Friend Notes: 35-year-old female has been very weak nausea vomiting in the bed for the last week cannot get around. She states that she cannot give her history due to her mentation. She states this is normal but she is just more weak than normal. She states she also is being tested for some nerve problems she has been very weak the doing brain scans no scans and a lot of follow-up testing due to her weakness and tingling. The friend that she lives with states that she has been much weaker than she normally is and that the patient cannot really give you a good history she does have a legal guardian. I have greeted and performed a rapid initial assessment of this patient. A comprehensive ED assessment and evaluation of the patient, analysis of test results and completion of medical decision making process will be conducted by an additional ED providers. TRAVEL OUTSIDE OF THE [place] IN LAST 30 DAYS: No - Related Data Allergies/Adverse Reactions: Penicillins Allergy (Verified 09/01/19 10:29) Home Medications: topamax. vitamin B. Vitamin D. HCTZ Past Medical History - Social History Chew tobacco use (# tins/day): No Frequency of alcohol use: None Drug Abuse: None - Past Medical History Cardiac Medical History: Reports: Hx Hypertension Pulmonary Medical History: Reports: Hx Asthma Renal/ Medical History: Denies: Hx Peritoneal Dialysis - Immunizations Hx Diphtheria, Pertussis, Tetanus Vaccination: Yes Physical Exam - Vital signs Vitals: Temp Pulse Resp BP Pulse Ox 98.4 F 72 16 109/61 99 05/10/20 10:42 05/10/20 10:42 05/10/20 10:42 05/10/20 10:42 05/10/20 10:42 Course - Vital Signs Vital signs: Temp Pulse Resp BP Pulse Ox 98.4 F 72 16 109/61 99 05/10/20 10:42 05/10/20 10:42 05/10/20 10:42 05/10/20 10:42 05/10/20 10:42
--- NOTE | 2020-05-10 12:18 | RADIOLOGY REPORT (SQ) ---
EXAM DESCRIPTION: CHEST SINGLE VIEW IMAGES COMPLETED DATE/TIME: 05/10/2020 12:02 pm REASON FOR STUDY: weak COMPARISON: 08/21/2018 EXAM PARAMETERS: NUMBER OF VIEWS: One view. TECHNIQUE: Single frontal radiographic view of the chest acquired. RADIATION DOSE: NA LIMITATIONS: None. FINDINGS: LUNGS AND PLEURA: No opacities, masses or pneumothorax. No pleural effusion. MEDIASTINUM AND HILAR STRUCTURES: No masses. Contour normal. HEART AND VASCULAR STRUCTURES: Heart normal in size. Normal vasculature. BONES: No acute findings. HARDWARE: None in the chest. OTHER: No other significant finding. IMPRESSION: NO ACUTE RADIOGRAPHIC FINDING IN THE CHEST. TECHNICAL DOCUMENTATION: JOB ID: [id number] 2010 [employer]- All Rights Reserved Reading location - IP/workstation name: [email or web address]
[2020-05-10 12:44] LABS: ABSOLUTE LYMPHOCYTES (AUTO) 1.6 10^3/uL (0.5-4.7); ABSOLUTE MONOCYTES (AUTO) 0.3 10^3/uL (0.1-1.4); ABSOLUTE NEUT (AUTO) 2.4 10^3/uL (1.7-8.2); BASOPHILS % (AUTO) 0.8 % (0-2); HEMATOCRIT 39.7 % (36.0-47.0); HEMOGLOBIN 14.2 g/dL (12.0-15.5); MEAN CORPUSCULAR HEMOGLOBIN 29.2 pg (27.0-33.4); MEAN CORPUSCULAR HGB CONC 35.7 g/dL (32.0-36.0); MEAN CORPUSCULAR VOLUME 82 fl (80-97); MONOCYTES % (AUTO) 7.5 % (3-13); PLATELET COUNT 270 10^3/uL (150-450); RED BLOOD COUNT 4.86 10^6/uL (3.72-5.28); RED CELL DISTRIBUTION WIDTH 13.2 % (11.5-14.0); SEGMENTED NEUTROPHILS % (AUTO) 54.7 % (42-78); TOTAL CELLS COUNTED % (AUTO) 100 %; WHITE BLOOD COUNT 4.4 10^3/uL (4.0-10.5)
[2020-05-10 12:55] LABS: A TYPE INFLUENZA AG NEGATIVE (NEGATIVE); B INFLUENZA AG NEGATIVE (NEGATIVE)
[2020-05-10 13:00] LABS: ALBUMIN 4.8 g/dL (3.5-5.0); ALKALINE PHOSPHATASE 66 U/L (38-126); ANION GAP 16 (5-19); ASPARTATE AMINO TRANSFERASE 23 U/L (14-36); BILIRUBIN,DIRECT 0.1 mg/dL (0.0-0.4); BILIRUBIN,TOTAL 0.7 mg/dL (0.2-1.3); BLOOD UREA NITROGEN 16 mg/dL (7-20); CALCIUM 9.8 mg/dL (8.4-10.2); CARBON DIOXIDE 29 mmol/L (22-30); CHLORIDE 94 mmol/L (98-107); CREATINE KINASE 246 U/L (30-135); GLUCOSE 87 mg/dL (75-110); TOTAL PROTEIN 8.3 g/dL (6.3-8.2)
[2020-05-10 13:07] LABS: POTASSIUM 2.7 mmol/L (3.6-5.0)
[2020-05-10] MEDS ORDERED: NORMAL SALINE 1000 ML 1,000 ML IV ONE (15:07)
[2020-05-10] MEDS ORDERED: POTASSIUM CHLORIDE 20 MEQ PACKET PO ONE (15:09)
[2020-05-10] MEDS ORDERED: FAMOTIDINE INJ/PF 20 MG/2 ML SDV IV ONE (15:10)
--- NOTE | 2020-05-10 16:01 | ER Document Report ---
Entered by JIA BHANDARI SCRIBE 05/10/20 1505 Acting as scribe for:DEIRDRE BAPTISTE MD ED General - General Chief Complaint: Nausea/Vomiting/Diarrhea Stated Complaint: VOMITING,WEAKNESS,MUSCLE PAIN Time Seen by Provider: 05/10/20 10:53 Primary Care Provider: VALERIE LEE MD [Primary Care Provider] - Follow up as needed Mode of Arrival: Wheelchair Information source: Patient Notes: This 35 year old female patient presents to the ED today with complaints of nausea and vomiting with associated weakness for the past x2 weeks. Patient reports that she developed an unexplained right-sided hemiparesis about x1 year ago. Denies any difficulty swallowing. Patient has a history of some type of mental deficiency. TRAVEL OUTSIDE OF THE [place] IN LAST 30 DAYS: No - Related Data Allergies/Adverse Reactions: Penicillins Allergy (Verified 09/01/19 10:29) Home Medications: topamax. vitamin B. Vitamin D. HCTZ Past Medical History - General Information source: Patient, Friend - Social History Smoking Status: Never Smoker Cigarette use (# per day): No Chew tobacco use (# tins/day): No Smoking Education Provided: No Frequency of alcohol use: None Drug Abuse: None Lives with: Friend Family History: Reviewed & Not Pertinent, CVA - 1706 Patient has suicidal ideation: No Patient has homicidal ideation: No - Past Medical History Cardiac Medical History: Reports: Hx Hypertension Pulmonary Medical History: Reports: Hx Asthma - Immunizations Hx Diphtheria, Pertussis, Tetanus Vaccination: Yes Review of Systems - Review of Systems Constitutional: See HPI, Weakness EENT: See HPI. denies: Difficulty swallowing Cardiovascular: No symptoms reported Respiratory: No symptoms reported Gastrointestinal: See HPI, Nausea, Vomiting Genitourinary: No symptoms reported Female Genitourinary: No symptoms reported Musculoskeletal: No symptoms reported Skin: No symptoms reported Hematologic/Lymphatic: No symptoms reported Neurological/Psychological: No symptoms reported -: Yes All other systems reviewed and negative Physical Exam - Vital signs Vitals: Temp Pulse Resp BP Pulse Ox 98.4 F 72 16 109/61 99 05/10/20 10:42 05/10/20 10:42 05/10/20 10:42 05/10/20 10:42 05/10/20 10:42 Interpretation: Normal - General General appearance: Alert In distress: None - HEENT Head: Normocephalic, Atraumatic Eyes: Normal Pupils: PERRL Neck: Normal, Supple - Respiratory Respiratory status: No respiratory distress Chest status: Nontender Breath sounds: Normal Chest palpation: Normal - Cardiovascular Rhythm: Regular Heart sounds: Normal auscultation, S1 appreciated, S2 appreciated Murmur: No Friction rub: No Gallop: None auscultated - Abdominal Inspection: Normal Distension: No distension Bowel sounds: Normal Tenderness: Nontender - Abdomen soft Organomegaly: No organomegaly - Back Back: Normal, Nontender - Extremities General upper extremity: Normal inspection General lower extremity: Normal inspection. No: Edema - Neurological Neuro grossly intact: Yes Orientation: AAOx4 [place] Coma Scale Eye Opening: Spontaneous [place] Coma Scale Verbal: Oriented [place] Coma Scale Motor: Obeys Commands [place] Coma Scale Total: 15 Additional motor exam normals: Weakness - Chronic RUE and RLE weakness - Psychological Associated symptoms: Normal affect, Normal mood - Skin Skin Temperature: Warm Skin Moisture: Dry Skin Color: Normal Course - Re-evaluation Re-evalutation: 05/10/20 16:44 Patient not showing any signs of nausea and vomiting at this time. 05/11/20 06:30 Patient received IV fluids and IV potassium. Also patient took p.o. potassium. Patient improved and was discharged home - Vital Signs Vital signs: Temp Pulse Resp BP Pulse Ox 97.7 F 83 15 104/82 99 05/10/20 22:00 05/10/20 22:00 05/10/20 22:00 05/10/20 22:00 05/10/20 22:00 05/10/20 16:44 Vital signs are stable. Afebrile. - Laboratory Result Diagrams: 05/10/20 12:15 05/10/20 12:15 Laboratory results interpreted by me: 05/10/20 05/10/20 12:15 16:20 Potassium 2.7 L* Chloride 94 L Est GFR (MDRD) Non-Af 57 L Creatine Kinase 246 H Total Protein 8.3 H Urine Ketones 80 H 05/10/20 16:44 Laboratories show a potassium of 2.7 a low chloride of 94 total CK 246. Total protein 8.3. Patient has metabolic derangement due to nausea vomiting and significant low potassium. - Diagnostic Test Radiology reviewed: Image reviewed, Reports reviewed Radiology results interpreted by me: 05/10/20 15:56 Chest X-Ray 05/10/20 11:03 IMPRESSION: NO ACUTE RADIOGRAPHIC FINDING IN THE CHEST. 05/10/20 16:44 Chest x-ray shows no acute process Abdominal series shows no obstruction no acute process. - Transfer of Care Care transferred to following provider: Further care transferred to Dr. Nix. Discharge - Discharge Clinical Impression: Hypokalemia due to excessive gastrointestinal loss of potassium, Generalized weakness, Nausea and vomiting Condition: Stable Disposition: HOME, SELF-CARE Instructions: Vomiting ([facility]) Referrals: VALERIE LEE MD [Primary Care Provider] - Follow up as needed I personally performed the services described in the documentation, reviewed and edited the documentation which was dictated to the scribe in my presence, and it accurately records my words and actions.
--- NOTE | 2020-05-10 16:05 | RADIOLOGY REPORT (SQ) ---
EXAM DESCRIPTION: ABDOMEN 2 VIEWS IMAGES COMPLETED DATE/TIME: 05/10/2020 3:40 pm REASON FOR STUDY: n/v/ COMPARISON: None. NUMBER OF VIEWS: Two views. TECHNIQUE: Supine and erect/decubitus radiographic images of the abdomen acquired. LIMITATIONS: None. FINDINGS: FREE AIR: None. No abnormal gas collections. LUNG BASES: Clear. BOWEL GAS PATTERN: Nonobstructive pattern. No dilated loops or air fluid levels. CALCIFICATIONS: No suspicious calcifications. SOFT TISSUES: No gross mass or suggestion of organomegaly. HARDWARE: None in the abdomen. BONES: No acute fracture. No worrisome bone lesions. OTHER: No other significant finding. IMPRESSION: NO RADIOGRAPHIC EVIDENCE FOR ACUTE ABDOMINAL DISEASE. TECHNICAL DOCUMENTATION: JOB ID: [id number] 2010 [employer]- All Rights Reserved Reading location - IP/workstation name: [email or web address]
[2020-05-10] MEDS: POTASSI CL 20 MEQ/50 ML RIDER 20 MEQ/50 ML RTUPB IV SCH ×2 (16:53→19:31)
[2020-05-10 18:23] LABS: APPEARANCE,URINE CLEAR; BILIRUBIN,URINE NEGATIVE (NEGATIVE); COLOR,URINE YELLOW; GLUCOSE, URINE NEGATIVE (NEGATIVE); KETONES,URINE 80 mg/dL (NEGATIVE); LEUKOCYTE ESTERASE,URINE NEGATIVE (NEGATIVE); NITRITE,URINE NEGATIVE (NEGATIVE); PROTEIN,URINE NEGATIVE (NEGATIVE); URINE SPECIFIC GRAVITY 1.011; UROBILINOGEN,URINE NEGATIVE mg/dL (<2.0)
[2020-05-10] MEDS ORDERED: KETOROLAC TROMETHAMINE INJ/PF 30 MG/1 ML SDV IV ONE (19:07)
[2020-05-10 22:02] VITALS: BP 104/82
== END 2020-05-10 22:00 | disposition home or self-care (01) ==
LOC: ER 10:37
DX: R11.2 Nausea with vomiting, unspecified (principal); E87.6 Hypokalemia; R53.1 Weakness; R13.10 Dysphagia, unspecified; I10 Essential (primary) hypertension; J45.909 Unspecified asthma, uncomplicated; Z79.899 Other long term (current) drug therapy; Z88.0 Allergy status to penicillin; Z20.828 Contact with and (suspected) exposure to other viral communicable diseases
CPT/HCPCS: 99284; 96375; 96365; 96366; 96367; 36415; 87086; 82550; 84703; 85025; 87088; 80053; 81001; 87186; 87804; 74019; 71045; U0003; J1885; J2405; J3480; J7030; S0028; J3490; C9803; 87635

== ENCOUNTER 2020-05-12 09:43 | Emergency (ER) | payer BC ==
[2020-05-12 10:48] LABS: APPEARANCE,URINE CLEAR; BILIRUBIN,URINE NEGATIVE (NEGATIVE); COLOR,URINE YELLOW; GLUCOSE, URINE NEGATIVE (NEGATIVE); KETONES,URINE 80 mg/dL (NEGATIVE); PROTEIN,URINE NEGATIVE (NEGATIVE); URINE SPECIFIC GRAVITY 1.015; UROBILINOGEN,URINE NEGATIVE mg/dL (<2.0)
[2020-05-12 10:51] LABS: ABSOLUTE EOSINOPHILS # (AUTO) 0.1 10^3/uL (0.0-0.6); ABSOLUTE LYMPHOCYTES (AUTO) 1.6 10^3/uL (0.5-4.7); ABSOLUTE MONOCYTES (AUTO) 0.2 10^3/uL (0.1-1.4); BASOPHILS % (AUTO) 0.9 % (0-2); EOSINOPHILS % (AUTO) 1.3 % (0-6); HEMATOCRIT 36.2 % (36.0-47.0); HEMOGLOBIN 12.3 g/dL (12.0-15.5); LYMPHOCYTES % (AUTO) 31.4 % (13-45); MEAN CORPUSCULAR HEMOGLOBIN 28.5 pg (27.0-33.4); MEAN CORPUSCULAR HGB CONC 34.1 g/dL (32.0-36.0); MEAN CORPUSCULAR VOLUME 84 fl (80-97); PLATELET COUNT 247 10^3/uL (150-450); RED BLOOD COUNT 4.32 10^6/uL (3.72-5.28); RED CELL DISTRIBUTION WIDTH 13.1 % (11.5-14.0); SEGMENTED NEUTROPHILS % (AUTO) 61.4 % (42-78); TOTAL CELLS COUNTED % (AUTO) 100 %; WHITE BLOOD COUNT 4.9 10^3/uL (4.0-10.5)
--- NOTE | 2020-05-12 10:51 | ER Document Report ---
ED General - General Chief Complaint: Numbness of Arm Stated Complaint: NUMBNESS Time Seen by Provider: 05/12/20 10:39 Primary Care Provider: VALERIE LEE MD [Primary Care Provider] - Follow up as needed Mode of Arrival: Ambulatory Notes: This 35-year-old woman presents to emergency department with a complaint of tingling in discomfort in the right upper extremity. She has had a 8-month history of weakness on the right side and in the upper and lower extremities. She was seen in the emergency department last night with nausea and vomiting and low potassium level. Presents this morning because of continued tingling sensation in the arm. She contacted her regular doctor who directed her to come to the emergency department. Patient has a history of an unexplained right татьяна paresis. Appears to have had a CTA of the neck and head along with MRI and CT scan as recently as 05/01/2020. Please those imaging studies were negative. Patient has an appointment with neurology in [place]. This will be a follow-up of a visit which was late April. She states that they are evaluating her for an explanation for your right-sided weakness. She complains of nausea and loss of appetite. TRAVEL OUTSIDE OF THE [place] IN LAST 30 DAYS: No - Related Data Allergies/Adverse Reactions: Penicillins Allergy (Verified 09/01/19 10:29) Past Medical History - Social History Smoking Status: Never Smoker Chew tobacco use (# tins/day): No Frequency of alcohol use: None Drug Abuse: None Family History: Reviewed & Not Pertinent, CVA - 1964 - Past Medical History Cardiac Medical History: Reports: Hx Hypertension Pulmonary Medical History: Reports: Hx Asthma Renal/ Medical History: Denies: Hx Peritoneal Dialysis - Immunizations Hx Diphtheria, Pertussis, Tetanus Vaccination: Yes Review of Systems - Review of Systems Notes: Constitutional: Negative for fever. HENT: Negative for sore throat. Eyes: Negative for visual changes. Cardiovascular: Negative for chest pain. Respiratory: Negative for shortness of breath. Gastrointestinal: See HPI Genitourinary: Negative for dysuria. Musculoskeletal: Negative for back pain. Skin: Negative for rash. Neurological: Negative for headaches, weakness or numbness. 10 point ROS negative except as marked above and in HPI. Physical Exam - Vital signs Vitals: Temp Pulse Resp BP Pulse Ox 98.4 F 90 14 116/86 H 99 05/12/20 09:51 05/12/20 09:51 05/12/20 09:51 05/12/20 09:51 05/12/20 09:51 - Notes Notes: PHYSICAL EXAMINATION: Physical Exam: General: Well-nourished well-developed 35-year-old female in no acute distress HEENT: NC/AT, pupils equal round and reactive to light, MM moist,nares clear, oropharynx clear, airway patent Neck: supple, no adenopathy, no masses. Good range of motion Lungs: clear, no wheezing, no rales no rhonchi CVS: Regular rate and rhythm no murmur gallop or rub Abdomen: Soft, active, nontender, no masses, no hepatosplenomegaly Ext: No edema, clubbing or cyanosis. Neuro: Alert and responsive, right hemiparesis upper extremity and lower extre mity. Patient can move her fingers and has some lift against gravity in the right arm. Weakness in right leg however can move her toes and has some ability to lift the leg against gravity. Skin: Intact no open lesions, no rash PSYCH: Normal mood, normal affect. Course - Vital Signs Vital signs: Temp Pulse Resp BP Pulse Ox 98.4 F 90 14 116/86 H 99 05/12/20 09:51 05/12/20 09:51 05/12/20 09:51 05/12/20 09:51 05/12/20 09:51 - Laboratory Result Diagrams: 05/12/20 10:18 05/12/20 10:18 Laboratory results interpreted by me: 05/12/20 05/12/20 05/12/20 10:05 10:18 10:18 ESR Potassium 3.0 L* Glucose 74 L Magnesium 2.4 H Urine Ketones 80 H Urine Blood SMALL H 05/12/20 10:18 ESR 31 H Potassium Glucose Magnesium Urine Ketones Urine Blood Discharge - Discharge Clinical Impression: Hypokalemia Nausea & vomiting Qualifiers: Vomiting type: unspecified Vomiting Intractability: unspecified Qualified Code(s): R11.2 - Nausea with vomiting, unspecified Condition: Good Disposition: HOME, SELF-CARE Instructions: Antinausea Medication ([facility]) Additional Instructions: You were seen in the emergency department today with weakness, follow-up for low potassium, and nausea and vomiting. You are given a prescription for supplemental potassium in Zofran for nausea. You will need to follow-up with your doctor in 2 to 3 days for a repeat potassium level. Please keep the appointment with neurology in [place] regarding your right sided weakness. HOME CARE INSTRUCTIONS & INFORMATION: Thank you for choosing us for your medical needs. We hope you're satisfied with the care you received. After you leave, you must properly care for your problem and, at the same time, observe its progress. Any condition can change. Some illnesses can change rapidly over hours or days. If your condition worsens, return to the Emergency Department or see your physician promptly. ABOUT YOUR X-RAYS AND EKG'S: If you had an EKG or X-rays taken, they have been read by the Emergency Physician. The X-rays and EKG's will also be read by a Radiologist or [facility] within 24 hours. If discrepancies are noted, you will be notified by telephone. Please be certain the ED has a correct telephone number & address where you can be reached. Also, realize that some fractures or abnormalities do not show up on initial X-rays. If your symptoms continue, see your physician. ABOUT YOUR LABORATORY TEST: If you had laboratory tests, the results have been reviewed by the Emergency Physician. Some test results (for example cultures) may not be available for several days. You will be contacted if any test result shows you need additional treatment. Please be certain the ED has a correct telephone number and address where you can be reached. ABOUT YOUR MEDICATIONS: You will receive instructions on how to take your medicine on the prescription label you receive. Additional information may be provided by the Pharmacy. If you have questions afterwards, call the ED for clarification or further instructions. Some prescribed medications may cause drowsiness. Do not perform tasks such as driving a car or operating machinery without consulting your Pharmacist. If you feel you need a refill of pain medication, your condition will need re-evaluation. Please do not call for a refill of any medication. ABOUT YOUR SIGNATURE: Signature of this document acknowledges to followin. Understanding that you received emergency treatment and that you may be released before al medical problems are known or treated. Please be certain the ED has a correct phone number & address where you can be reached. 2. Acknowledgement that you will arrange for follow-up care as recommended. 3. Authorization for the Emergency Physician to provide information to your follow-up Physician in order to maximize your care. AT ANY TIME, IF YOUR SYMPTOMS CHANGE SIGNIFICANTLY OR WORSEN OR YOU DEVELOP NEW SYMPTOMS, RETURN TO THE EMERGENCY DEPARTMENT IMMEDIATELY FOR RE-EVALUATION. OUR GOAL IS TO PROVIDE EXCELLENT MEDICAL CARE! WE HOPE THAT WE HAVE MET YOUR EXPECTATIONS DURING YOUR EMERGENCY DEPARTMENT VISIT AND THAT YOU FEEL YOU HAVE RECEIVED EXCELLENT CARE! Prescriptions: Potassium Chloride [Klor-Con M20] 20 meq PO DAILY #10 tab.er.prt Ondansetron [Zofran Odt 4 mg Tablet] 1 - 2 tab PO Q4H PRN #[id number] tab.rapdis PRN Reason: For Nausea/Vomiting Referrals: VALERIE LEE MD [Primary Care Provider] - Follow up as needed
[2020-05-12 11:17] LABS: ALBUMIN 4.4 g/dL (3.5-5.0); ALKALINE PHOSPHATASE 59 U/L (38-126); ANION GAP 17 (5-19); ASPARTATE AMINO TRANSFERASE 24 U/L (14-36); BILIRUBIN,DIRECT 0.1 mg/dL (0.0-0.4); BILIRUBIN,TOTAL 0.5 mg/dL (0.2-1.3); BLOOD UREA NITROGEN 15 mg/dL (7-20); CALCIUM 9.3 mg/dL (8.4-10.2); CARBON DIOXIDE 22 mmol/L (22-30); CHLORIDE 101 mmol/L (98-107); GLUCOSE 74 mg/dL (75-110); TOTAL PROTEIN 7.6 g/dL (6.3-8.2)
[2020-05-12 11:27] LABS: C-REACTIVE PROTEIN < 5.0 mg/L (<10.0)
[2020-05-12] MEDS ORDERED: POTASSIUM CHLORIDE 10 MEQ TABLET.ER PO ONE (11:35)
[2020-05-12 12:50] VITALS: BP 114/85
== END 2020-05-12 12:05 | disposition home or self-care (01) ==
LOC: ER 09:43
DX: E87.6 Hypokalemia (principal); R11.2 Nausea with vomiting, unspecified; R63.0 Anorexia; R20.2 Paresthesia of skin; G81.91 Hemiplegia, unspecified affecting right dominant side; I10 Essential (primary) hypertension; J45.909 Unspecified asthma, uncomplicated; Z88.0 Allergy status to penicillin
CPT/HCPCS: 36415; 80053; 81001; 83735; 85025; 85652; 86140; 99283

== ENCOUNTER 2020-05-27 09:52 | Inpatient (IN) | payer BC ==
--- NOTE | 2020-05-27 10:12 | ER Document Report ---
ED Medical Screen (RME) - General Chief Complaint: Vomiting Stated Complaint: VOMITING/DIRECT ADMIT Time Seen by Provider: 05/27/20 10:07 Primary Care Provider: VALERIE LEE MD [Primary Care Provider] - Follow up as needed Mode of Arrival: Wheelchair Notes: Patient is a 35-year-old female who was sent to the emergency room by Dr. Lee with a diagnosis of persistent vomiting. Patient states she started getting sick approximately 3 weeks ago. She has had a recent upper EGD but unknown results at this time. Last vomited last night. Denies any severe abdominal pain. Denies any past surgical history. Patient is a past medical history pertinent for hypertension. She is unaware of the medication she is currently taking. She denies any fevers. Last menstrual period is unknown according to patient she states "it has been a while". She states that there is no way she can be . She is not on any control. Patient does not smoke. Vital signs are stable no sign of sepsis. Physical examination: Patient is a well-nourished well-developed 35-year-old female no apparent distress on physical exam this morning. Cardiac: Regular rate and rhythm without any murmurs. Lungs: Bilateral breath sounds breath sounds increased clear auscultation. Abdomen: In the sitting position patient has bowel sounds present all 4 quads no tenderness noted to palpation in the sitting position. I have greeted and performed a rapid initial assessment of this patient. A comprehensive ED assessment and evaluation of the patient, analysis of test results and completion of the medical decision making process will be conducted by additional ED providers. Dictation of this chart was performed using voice recognition software; therefore, there may be some unintended grammatical errors. TRAVEL OUTSIDE OF THE [place] IN LAST 30 DAYS: No - Related Data Allergies/Adverse Reactions: Penicillins Allergy (Verified 09/01/19 10:29) Past Medical History - Past Medical History Cardiac Medical History: Reports: Hx Hypertension Pulmonary Medical History: Reports: Hx Asthma Renal/ Medical History: Denies: Hx Peritoneal Dialysis - Immunizations Hx Diphtheria, Pertussis, Tetanus Vaccination: Yes Physical Exam - Vital signs Vitals: Temp Pulse Resp BP Pulse Ox 98.4 F 87 18 106/73 99 05/27/20 10:01 05/27/20 10:01 05/27/20 10:01 05/27/20 10:01 05/27/20 10:01 Course - Vital Signs Vital signs: Temp Pulse Resp BP Pulse Ox 98.4 F 87 18 106/73 99 05/27/20 10:01 05/27/20 10:01 05/27/20 10:01 05/27/20 10:01 05/27/20 10:01 Doctor's Discharge - Discharge Referrals: VALERIE LEE MD [Primary Care Provider] - Follow up as needed
--- NOTE | 2020-05-27 11:12 | ER Document Report ---
ED General - General Chief Complaint: Vomiting Stated Complaint: VOMITING/DIRECT ADMIT Time Seen by Provider: 05/27/20 10:07 Primary Care Provider: VALERIE LEE MD [Primary Care Provider] - Follow up as needed Mode of Arrival: Wheelchair TRAVEL OUTSIDE OF THE [place] IN LAST 30 DAYS: No - HPI Notes: 35-year-old female with history of right-sided arm and leg weakness from presumed MS to the emergency department from Dr. Lee's office for further evaluation for nausea and vomiting for 3 weeks and medical obs admission. Patient states that she has been vomiting off and on for the past 3 weeks and been getting weaker. She states she is having some difficulty taking care of herself. She states she had an EGD done a week and a half ago and her vomiting got a lot worse after that. She says Dr. Boyd did the scope. She denies any fevers or chills. She denies any abdominal pain. She denies any chest pain or shortness of breath. She states she is being currently evaluated at [facility] for MS. She states that in September she started to have weakness in her right upper extremity as well as her right lower leg. She states that she has had difficulty taking care of herself since then. Denies any fevers, chills, sore throat, loss of taste or smell, diarrhea, body aches. Denies any known exposure to Covid positive person. - Related Data Allergies/Adverse Reactions: Penicillins Allergy (Verified 05/27/20 11:05) Past Medical History - General Information source: Patient - Social History Smoking Status: Never Smoker Frequency of alcohol use: None Drug Abuse: None Family History: Reviewed & Not Pertinent, CVA - 1712 Patient has homicidal ideation: No - Past Medical History Cardiac Medical History: Reports: Hx Hypertension Pulmonary Medical History: Reports: Hx Asthma Renal/ Medical History: Denies: Hx Peritoneal Dialysis - Immunizations Hx Diphtheria, Pertussis, Tetanus Vaccination: Yes Review of Systems - Review of Systems Constitutional: Weakness. denies: Chills, Fever EENT: No symptoms reported Cardiovascular: denies: Chest pain, Palpitations, Heart racing, Orthopnea, Dyspnea, Syncope, Dizziness, Lightheaded Respiratory: denies: Cough, Short of breath Gastrointestinal: Nausea, Vomiting - see HPI. denies: Abdominal pain, Diarrhea Genitourinary: denies: Frequency, Flank pain, Hematuria Musculoskeletal: See HPI Skin: No symptoms reported Hematologic/Lymphatic: No symptoms reported Neurological/Psychological: See HPI -: Yes All other systems reviewed and negative Physical Exam - Vital signs Vitals: Temp Pulse Resp BP Pulse Ox 98.4 F 87 18 106/73 99 05/27/20 10:01 05/27/20 10:01 05/27/20 10:01 05/27/20 10:01 05/27/20 10:01 Interpretation: Normal - General General appearance: Alert Notes: Appears chronically ill, in no acute distress - HEENT Head: Normocephalic, Atraumatic Eyes: Normal Pupils: PERRL Neck: Normal, Supple. No: Lymphadenopathy - Respiratory Respiratory status: No respiratory distress Chest status: Nontender Breath sounds: Normal. No: Rales, Rhonchi, Wheezing Chest palpation: Normal - Cardiovascular Rhythm: Regular Heart sounds: Normal auscultation Murmur: No Notes: no leg swelling - Abdominal Inspection: Normal Distension: No distension Bowel sounds: Normal Tenderness: Nontender. No: Tender, McBurney's point, Roman's sign, Guarding, Rebound Organomegaly: No organomegaly - Back Back: Normal, Nontender. No: CVA tenderness - Neurological Cognition: Normal Orientation: AAOx4 [place] Coma Scale Eye Opening: Spontaneous [place] Coma Scale Verbal: Oriented [place] Coma Scale Motor: Obeys Commands [place] Coma Scale Total: 15 Speech: Normal Cranial nerves: Normal. No: Facial palsy, Forehead sparing, Gaze palsy, Sensory deficit, Tongue deviation Motor strength normal: RUE - there is decreased strenght in the RUE -- approximately 3/5 in strength, also decreased strength in the RLE, against about 3/5 in strength. Patient states this is her baseline since September 2019 and not worsening. Sensory: Normal - Psychological Associated symptoms: Normal mood, Flat affect - Skin Skin Temperature: Warm Skin Moisture: Dry Skin Color: Normal Course - Re-evaluation Re-evalutation: 05/27/[address] Lee's office. He would like some blood work as well as a CT. Looks like he would like vertigo to medical is on telemetry. We will await results and then will call Dr. Lee with information. 05/27/20 14:[address] Lee. He is aware of the patient's potassium. Also aware of the other lab work. He agrees with plan for admission. Rounded with patient and she also agrees. Will place on medical observation admission to Dr. Lee. - Vital Signs Vital signs: Temp Pulse Resp BP Pulse Ox 98.4 F 87 18 106/73 99 05/27/20 10:01 05/27/20 10:01 05/27/20 10:01 05/27/20 10:01 05/27/20 10:01 - Laboratory Result Diagrams: 05/27/20 11:17 05/27/20 11:17 Laboratory results interpreted by me: 05/27/20 05/27/20 11:17 11:17 WBC 3.5 L RBC 5.70 H Hgb 16.2 H Absolute Neuts (auto) 1.5 L Seg Neutrophils % 41.8 L Sodium 134.6 L Potassium 2.5 L* Chloride 85 L Anion Gap 25 H Total Protein 8.9 H Albumin 5.2 H - Diagnostic Test Radiology reviewed: Image reviewed, Reports reviewed Discharge - Discharge Clinical Impression: Hypokalemia Vomiting Qualifiers: Vomiting type: unspecified Vomiting Intractability: intractable Nausea presence: with nausea Qualified Code(s): R11.2 - Nausea with vomiting, unspecified Condition: Stable Disposition: ADMITTED OBSERVATION Admitting Provider: [facility] Unit Admitted: Telemetry Referrals: VALERIE LEE MD [Primary Care Provider] - Follow up as needed
[2020-05-27] MEDS ORDERED: PANTOPRAZOLE SODIUM 40 MG VIAL IV ONE (11:37)
[2020-05-27] MEDS ORDERED: RINGERS SOLUTION,LACTATED 1,000 ML IV ONE (11:37)
[2020-05-27 11:42] LABS: ABSOLUTE LYMPHOCYTES (AUTO) 1.6 10^3/uL (0.5-4.7); ABSOLUTE MONOCYTES (AUTO) 0.4 10^3/uL (0.1-1.4); ABSOLUTE NEUT (AUTO) 1.5 10^3/uL (1.7-8.2); BASOPHILS % (AUTO) 1.4 % (0-2); EOSINOPHILS % (AUTO) 0.9 % (0-6); HEMATOCRIT 46.3 % (36.0-47.0); HEMOGLOBIN 16.2 g/dL (12.0-15.5); LYMPHOCYTES % (AUTO) 44.8 % (13-45); MEAN CORPUSCULAR HEMOGLOBIN 28.4 pg (27.0-33.4); MEAN CORPUSCULAR VOLUME 81 fl (80-97); MONOCYTES % (AUTO) 11.1 % (3-13); PLATELET COUNT 254 10^3/uL (150-450); RED CELL DISTRIBUTION WIDTH 13.1 % (11.5-14.0); SEGMENTED NEUTROPHILS % (AUTO) 41.8 % (42-78); TOTAL CELLS COUNTED % (AUTO) 100 %; WHITE BLOOD COUNT 3.5 10^3/uL (4.0-10.5)
[2020-05-27 11:57] LABS: ALBUMIN 5.2 g/dL (3.5-5.0); ALKALINE PHOSPHATASE 64 U/L (38-126); ASPARTATE AMINO TRANSFERASE 33 U/L (14-36); BILIRUBIN,DIRECT 0.3 mg/dL (0.0-0.4); BILIRUBIN,TOTAL 0.9 mg/dL (0.2-1.3); BLOOD UREA NITROGEN 8 mg/dL (7-20); CALCIUM 9.9 mg/dL (8.4-10.2); CARBON DIOXIDE 25 mmol/L (22-30); CHLORIDE 85 mmol/L (98-107); GLUCOSE 103 mg/dL (75-110); TOTAL PROTEIN 8.9 g/dL (6.3-8.2)
[2020-05-27 12:03] LABS: ANION GAP 25 (5-19)
[2020-05-27 12:05] LABS: POTASSIUM 2.5 mmol/L (3.6-5.0)
[2020-05-27] MEDS ORDERED: POTASSI CL 20 MEQ/50 ML RIDER 20 MEQ/50 ML RTUPB IV ONE (12:10)
[2020-05-27] MEDS ORDERED: POTASSIUM CHLORIDE 10 MEQ TABLET.ER PO ONE (12:13)
[2020-05-27 12:14] LABS: FREE T3 3.02 pg/mL (2.77-5.27); FREE T4 (FREE THYROXINE) 1.94 ng/dL (0.78-2.19)
[2020-05-27 12:27] LABS: THYROID STIMULATING HORMONE 1.78 uIU/mL (0.47-4.68)
--- NOTE | 2020-05-27 12:36 | RADIOLOGY REPORT (SQ) ---
EXAM DESCRIPTION: CT ABD/PELVIS WITH IV ONLY IMAGES COMPLETED DATE/TIME: 05/27/2020 12:23 pm REASON FOR STUDY: abd pain vomituing COMPARISON: None. TECHNIQUE: CT scan of the abdomen and pelvis performed using helical scanning technique with dynamic intravenous contrast injection. No oral contrast. Images reviewed with lung, soft tissue, and bone windows. Reconstructed coronal and sagittal MPR images reviewed. Delayed images for evaluation of the urinary system also acquired. All images stored on PACS. All CT scanners at this facility use dose modulation, iterative reconstruction, and/or weight based d osing when appropriate to reduce radiation dose to as low as reasonably achievable (ALARA). [facility]: Dose Right [facility]: CareDose [facility]: Dose Right [facility]: Teradose 4D [facility]: [employer] Systems CONTRAST TYPE AND DOSE: contrast/concentration: Isovue 350.00 mmol/ml; Total Contrast Delivered: 73. 0 ml; Total Saline Delivered: 56.0 ml RENAL FUNCTION: BUN 8, creatinine 1.03 RADIATION DOSE: CT Rad equipment meets quality standard of care and radiation dose reduction techniq ues were employed. CTDIvol: NaN - NaN mGy. DLP: 0 mGy-cm.. LIMITATIONS: None. FINDINGS: LOWER CHEST: No significant findings. No nodules or infiltrates. LIVER: Normal size. No suspicious masses. Possible hemangioma in the right lobe near the dome. SPLEEN: Normal size. No focal lesions. PANCREAS: No masses. No significant calcifications. No adjacent inflammation or peripancreatic fluid collections. Pancreatic duct not dilated. GALLBLADDER: No identified stones by CT criteria. No inflammatory changes to suggest cholecystitis. ADRENAL GLANDS: No significant masses or asymmetry. RIGHT KIDNEY AND URETER: No solid masses. No significant calcifications. No hydronephrosis or hyd roureter. LEFT KIDNEY AND URETER: No solid masses. No significant calcifications. No hydronephrosis or hydr oureter. AORTA AND VESSELS: No aneurysm. No dissection. Renal arteries, SMA, celiac without stenosis. RETROPERITONEUM: No retroperitoneal adenopathy, hemorrhage or masses. BOWEL AND PERITONEAL CAVITY: No masses or inflammatory changes. No free fluid or peritoneal masses. APPENDIX: Not visualized. PELVIS: Small uterine fibroids. The uterus is retroflexed. Numerous small ovarian cysts. ABDOMINAL WALL: No masses. No hernias. BONES: No significant or acute findings. OTHER: No other significant finding. IMPRESSION: NO SIGNIFICANT OR ACUTE FINDING IN THE ABDOMEN OR PELVIS ON CT SCAN WITH IV CONTRAST. TECHNICAL DOCUMENTATION: JOB ID: [id number] Quality ID # [id number]: Final reports with documentation of one or more dose reduction techniques (e.g., Au tomated exposure control, adjustment of the mA and/or kV according to patient size, use of iterative reconstruction technique) 2010 [employer]- All Rights Reserved Reading location - IP/workstation name: [facility], [facility]
[2020-05-27] MEDS ORDERED: ONDANSETRON HCL INJ/PF 4 MG/2 ML SDV IV ONE (14:31)
[2020-05-27 16:59] LABS: APPEARANCE,URINE CLEAR; BILIRUBIN,URINE NEGATIVE (NEGATIVE); COLOR,URINE YELLOW; GLUCOSE, URINE NEGATIVE (NEGATIVE); KETONES,URINE 80 mg/dL (NEGATIVE); LEUKOCYTE ESTERASE,URINE NEGATIVE (NEGATIVE); NITRITE,URINE NEGATIVE (NEGATIVE); PROTEIN,URINE NEGATIVE (NEGATIVE); URINE SPECIFIC GRAVITY 1.032; UROBILINOGEN,URINE NEGATIVE mg/dL (<2.0)
[2020-05-27] MEDS ORDERED: DEXAMETHASONE SOD PHOS INJ 10 MG/1 ML VIAL IV SCH (19:15)
--- NOTE | 2020-05-27 19:59 | PDOC H&P ---
History of Present Illness Admission Date/PCP: 05/27/20 13:37 VALERIE LEE MD History of Present Illness: SHAWNEE CARR is a 35 year old female, She was seen today in the office for ev aluation of persistent vomiting, she was in the office about 10 days ago for the same problem, she also complain of early satiety, she was referred to GI that they were GI for upper endoscopy, this was done last week, she was found to have gastritis with erosion of the gastric mucosa, there was no gastric outlet obstruction, because of the persistent vomiting it was felt that patient needed inpatient care. The initial blood work that was done revealed severe hypokalemia.She has underlining right-sided hemiparesis, she is being evaluated at [facility] for the etiology of the weakness Past Medical History Cardiac Medical History: Reports: Hypertension Pulmonary Medical History: Reports: Asthma Neurological Medical History: Reports: Ischemic CVA Social History Smoking Status: Never Smoker Family History Family History: Reviewed & Not Pertinent, CVA - 1713 Parental Family History Reviewed: Yes Children Family History Reviewed: Yes Sibling(s) Family History Reviewed.: Yes Medication/Allergy Home Medications: Potassium Chloride [Klor-Con M20] 20 meq PO DAILY #10 tab.er.prt 05/12/20 Ergocalciferol (Vitamin D2) [Drisdol 50,000 unit (1.25MG) Capsule] 50,000 unit PO VEGA@1000 05/27/20 Hydrochlorothiazide [Hydrodiuril 25 mg Tablet] 25 mg PO QAM 05/27/20 Ondansetron [Zofran Odt 4 mg Tablet] 1 tab PO Q8HP PRN 05/27/20 Pantoprazole Sodium [Protonix [address] Tablet] 40 mg PO QAM@0630 05/27/20 Topiramate [Topamax] 50 mg PO BID 05/27/20 Allergies/Adverse Reactions: Penicillins Allergy (Verified 05/27/20 11:05) Review of Systems Constitutional: ABSENT: chills, fever(s), headache(s), weight gain, weight loss Eyes: ABSENT: visual disturbances Ears: ABSENT: hearing changes Cardiovascular: ABSENT: chest pain, dyspnea on exertion, edema, orthropnea, palpitations Respiratory: ABSENT: cough, hemoptysis Gastrointestinal: PRESENT: vomiting Genitourinary: ABSENT: dysuria, hematuria Musculoskeletal: ABSENT: joint swelling Integumentary: ABSENT: rash, wounds Neurological: PRESENT: numbness, paresthesias, weakness Psychiatric: ABSENT: anxiety, depression, homidical ideation, suicidal ideation Endocrine: ABSENT: cold intolerance, heat intolerance, menstrual abnormalities, polydipsia, polyuria Hematologic/Lymphatic: ABSENT: easy bleeding, easy bruising, lymphadenopathy Physical Exam Vital Signs: Temp Pulse Resp BP Pulse Ox 98.0 F 83 16 108/64 100 05/27/20 18:16 05/27/20 18:16 05/27/20 18:16 05/27/20 18:16 05/27/20 18:16 Intake & Output 05/26/20 05/27/20 05/28/20 06:59 06:59 06:59 Intake Total 1050 Balance 1050 Weight 64.4 kg General appearance: PRESENT: no acute distress, well-developed, well-nourished Head exam: PRESENT: atraumatic, normocephalic Eye exam: PRESENT: conjunctiva pink, EOMI, PERRLA Ear exam: PRESENT: normal external ear exam Mouth exam: PRESENT: moist, tongue midline Neck exam: PRESENT: full ROM Respiratory exam: PRESENT: clear to auscultation abhishek Cardiovascular exam: PRESENT: RRR, +S1, +S2 Pulses: PRESENT: normal dorsalis pedis pul, +2 pedal pulses bilateral Vascular exam: PRESENT: normal capillary refill GI/Abdominal exam: PRESENT: normal bowel sounds, soft Rectal exam: PRESENT: deferred Neurological exam: PRESENT: alert, motor sensory deficit Psychiatric exam: PRESENT: appropriate affect, normal mood Skin exam: PRESENT: dry, intact, warm Results Laboratory Results: 05/27/20 11:17 05/27/20 11:17 05/27/20 05/27/20 05/27/20 11:17 11:17 11:17 WBC 3.5 L RBC 5.70 H Hgb 16.2 H Hct 46.3 MCV 81 MCH 28.4 MCHC 35.0 RDW 13.1 Plt Count 254 Seg Neutrophils % 41.8 L Sodium 134.6 L Potassium 2.5 L* Chloride 85 L Carbon Dioxide 25 Anion Gap 25 H BUN 8 Creatinine 1.03 Est GFR ( Amer) > 60 Glucose 103 Calcium 9.9 Magnesium Total Bilirubin 0.9 AST 33 Alkaline Phosphatase 64 Total Protein 8.9 H Albumin 5.2 H TSH 1.78 Free T4 1.94 Free T3 pg/mL 3.02 Urine Color Urine Appearance Urine pH Ur Specific [place] Urine Protein Urine Glucose (UA) Urine Ketones Urine Blood Urine Nitrite Ur Leukocyte Esterase Urine WBC (Auto) Urine RBC (Auto) 05/27/20 05/27/20 11:17 16:35 WBC RBC Hgb Hct MCV MCH MCHC RDW Plt Count Seg Neutrophils % Sodium Potassium Chloride Carbon Dioxide Anion Gap BUN Creatinine Est GFR ( Amer) Glucose Calcium Magnesium 2.2 Total Bilirubin AST Alkaline Phosphatase Total Protein Albumin TSH Free T4 Free T3 pg/mL Urine Color YELLOW Urine Appearance CLEAR Urine pH 6.0 Ur Specific [place] 1.032 Urine Protein NEGATIVE Urine Glucose (UA) NEGATIVE Urine Ketones 80 H Urine Blood NEGATIVE Urine Nitrite NEGATIVE Ur Leukocyte Esterase NEGATIVE Urine WBC (Auto) 2 Urine RBC (Auto) 0 Impressions: Abdomen/Pelvis CT 05/27/20 10:11 IMPRESSION: NO SIGNIFICANT OR ACUTE FINDING IN THE ABDOMEN OR PELVIS ON CT SCAN WITH IV CONTRAST. Assessment & Plan - Diagnosis (1) Intractable vomiting Qualifiers: Vomiting type: unspecified Nausea presence: with nausea Qualified Code(s): R11.2 - Nausea with vomiting, unspecified Is this a current diagnosis for this admission?: Yes Plan: She has intractable vomiting, the cause is not clear (2) Hypokalemia Is this a current diagnosis for this admission?: Yes Plan: This most likely from persistent vomiting - Time Time Spent: Greater than 70 Minutes Medications reviewed and adjusted accordingly: Yes Anticipated Discharge Disposition: Home, Self Care Anticipated Discharge Timeframe: within 72 hours - Inpatient Certification Based on my medical assessment, after consideration of the patient's comorbidities, presenting symptoms, or acuity I expect that the services needed warrant INPATIENT care.: Yes I certify that my determination is in accordance with my understanding of Medicare's requirements for reasonable and necessary INPATIENT services [42 CFR 412.3e].: Yes
[2020-05-27] MEDS ORDERED: ENOXAPARIN SODIUM INJ 40 MG/0.4 ML DISP.SYRIN SUBCUT SCH (20:00)
[2020-05-27] MEDS ORDERED: ASCORBIC ACID 500 MG TABLET PO SCH (20:00)
[2020-05-27] MEDS ORDERED: AZITHROMYCIN 250 MG TABLET PO SCH ×2 (20:00→22:00)
[2020-05-27 20:25] LABS: FIBRINOGEN 302 mg/dL (209-497); INTERNATIONAL RATION (INR) 1.11; PARTIAL THROMBOPLASTIN TIME 30.7 SEC (23.5-35.8); PROTHROMBIN TIME 14.5 SEC (11.4-15.4)
[2020-05-27 20:28] LABS: ALBUMIN 4.2 g/dL (3.5-5.0); ALKALINE PHOSPHATASE 50 U/L (38-126); ASPARTATE AMINO TRANSFERASE 25 U/L (14-36); BILIRUBIN,DIRECT 0.2 mg/dL (0.0-0.4); BILIRUBIN,TOTAL 0.7 mg/dL (0.2-1.3); BLOOD UREA NITROGEN 6 mg/dL (7-20); CREATINE KINASE 218 U/L (30-135); GLUCOSE 85 mg/dL (75-110)
[2020-05-27 20:29] LABS: C-REACTIVE PROTEIN < 5.0 mg/L (<10.0)
[2020-05-27 20:31] LABS: CARBON DIOXIDE 24 mmol/L (22-30); CHLORIDE 93 mmol/L (98-107)
[2020-05-27 20:32] LABS: ANION GAP 20 (5-19)
[2020-05-27 21:02] LABS: POTASSIUM 2.4 mmol/L (3.6-5.0)
[2020-05-27 21:09] LABS: ABSOLUTE BASOPHILS # (AUTO) 0.1 10^3/uL (0.0-0.2); ABSOLUTE EOSINOPHILS # (AUTO) 0.1 10^3/uL (0.0-0.6); ABSOLUTE LYMPHOCYTES (AUTO) 2.9 10^3/uL (0.5-4.7); ABSOLUTE MONOCYTES (AUTO) 0.6 10^3/uL (0.1-1.4); ABSOLUTE NEUT (AUTO) 1.8 10^3/uL (1.7-8.2); EOSINOPHILS % (AUTO) 1.4 % (0-6); LYMPHOCYTES % (AUTO) 53.8 % (13-45); MEAN CORPUSCULAR HGB CONC 34.4 g/dL (32.0-36.0); MEAN CORPUSCULAR VOLUME 81 fl (80-97); MONOCYTES % (AUTO) 10.6 % (3-13); PLATELET COUNT 221 10^3/uL (150-450); RED BLOOD COUNT 4.67 10^6/uL (3.72-5.28); RED CELL DISTRIBUTION WIDTH 13.1 % (11.5-14.0); SEGMENTED NEUTROPHILS % (AUTO) 33.2 % (42-78); TOTAL CELLS COUNTED % (AUTO) 100 %; WHITE BLOOD COUNT 5.3 10^3/uL (4.0-10.5)
[2020-05-27 21:16] LABS: HEMOGLOBIN 13.1 g/dL (12.0-15.5)
[2020-05-27] MEDS ORDERED: POTASSI CL 20 MEQ/50 ML RIDER 20 MEQ/50 ML RTUPB IV SCH (22:00)
[2020-05-27] MEDS: RINGERS SOLUTION,LACTATED 1,000 ML IV PRN (23:07)
[2020-05-27] MEDS: DEXAMETHASONE SOD PHOSPHATE INJ 4 MG/1 ML VIAL IV SCH (23:08)
[2020-05-27] MEDS: PANTOPRAZOLE SODIUM 40 MG VIAL IV SCH (23:09)
[2020-05-27] MEDS: ENOXAPARIN SODIUM INJ 40 MG/0.4 ML DISP.SYRIN SUBCUT SCH (23:09)
[2020-05-27] MEDS: CHOLECALCIFEROL (D3) 1,000 UNIT (25 MCG) TABLET PO SCH (23:10)
[2020-05-27] MEDS: ZINC SULFATE 220 MG CAPSULE PO SCH (23:10)
[2020-05-27] MEDS: ASCORBIC ACID 500 MG TABLET PO SCH (23:11)
[2020-05-28] MEDS: ONDANSETRON 4 MG TAB.RAPDIS PO PRN ×3 (00:14→17:30)
[2020-05-28] MEDS: POTASSI CL 20 MEQ/50 ML RIDER 20 MEQ/50 ML RTUPB IV SCH ×4 (02:43→22:00)
[2020-05-28] MEDS: ACETAMINOPHEN 325 MG TABLET PO PRN (07:24)
[2020-05-28 07:27] LABS: ANION GAP 16 (5-19); BLOOD UREA NITROGEN 8 mg/dL (7-20); CARBON DIOXIDE 23 mmol/L (22-30); CHLORIDE 98 mmol/L (98-107); GLUCOSE 115 mg/dL (75-110)
[2020-05-28 07:33] LABS: POTASSIUM 2.9 mmol/L (3.6-5.0)
[2020-05-28] MEDS: RINGERS SOLUTION,LACTATED 1,000 ML IV PRN ×2 (09:36→22:01)
[2020-05-28] MEDS: PANTOPRAZOLE SODIUM 40 MG VIAL IV SCH ×2 (12:08→21:45)
[2020-05-28] MEDS: DEXAMETHASONE SOD PHOSPHATE INJ 4 MG/1 ML VIAL IV SCH (12:08)
[2020-05-28] MEDS: ENOXAPARIN SODIUM INJ 40 MG/0.4 ML DISP.SYRIN SUBCUT SCH (12:08)
[2020-05-28] MEDS: ASCORBIC ACID 500 MG TABLET PO SCH ×2 (12:09→17:22)
[2020-05-28] MEDS: CHOLECALCIFEROL (D3) 1,000 UNIT (25 MCG) TABLET PO SCH (12:09)
[2020-05-28] MEDS: ZINC SULFATE 220 MG CAPSULE PO SCH (12:10)
--- NOTE | 2020-05-28 20:23 | PDOC PROGRESS REPORT ---
Subjective Date:: 05/28/20 Subjective:: Patient was admitted yesterday for the management of intractable vomiting, there is hypokalemia secondary to the vomiting Reason For Visit: HYPOKALEMIA/VOMITING Physical Exam Vital Signs: Temp Pulse Resp BP Pulse Ox 97.6 F 85 16 106/68 100 05/28/20 14:57 05/28/20 14:57 05/28/20 14:57 05/28/20 14:57 05/28/20 14:57 Intake & Output 05/27/20 05/28/20 05/29/20 06:59 06:59 06:59 Intake Total 1150 1300 Output Total 300 400 Balance 850 900 Weight 59.4 kg 59.4 kg General appearance: PRESENT: no acute distress Eye exam: PRESENT: PERRLA Respiratory exam: PRESENT: clear to auscultation abhishek Cardiovascular exam: PRESENT: +S1, +S2 Neurological exam: PRESENT: alert Results Laboratory Results: 05/27/20 20:56 05/28/20 06:50 05/27/20 05/27/20 05/27/20 19:53 19:53 20:56 WBC Cancelled 5.3 RBC Cancelled 4.67 Hgb Cancelled 13.1 D Hct Cancelled 38.0 MCV Cancelled 81 MCH Cancelled 28.0 MCHC Cancelled 34.4 RDW Cancelled 13.1 Plt Count Cancelled 221 Seg Neutrophils % Cancelled 33.2 L Sodium 136.7 L Potassium 2.4 L* Chloride 93 L Carbon Dioxide 24 Anion Gap 20 H BUN 6 L Creatinine 0.96 Est GFR ( Amer) > 60 Glucose 85 Calcium 9.0 Ferritin 117.00 Total Bilirubin 0.7 AST 25 Alkaline Phosphatase 50 C-Reactive Protein < 5.0 Total Protein 7.0 Albumin 4.2 05/28/20 06:50 WBC RBC Hgb Hct MCV MCH MCHC RDW Plt Count Seg Neutrophils % Sodium 137.3 Potassium 2.9 L* Chloride 98 Carbon Dioxide 23 Anion Gap 16 BUN 8 Creatinine 0.83 Est GFR ( Amer) > 60 Glucose 115 H Calcium 9.0 Ferritin Total Bilirubin AST Alkaline Phosphatase C-Reactive Protein Total Protein Albumin 05/27/20 05/27/20 19:53 19:53 Creatine Kinase 218 H Troponin I < 0.012 Impressions: Abdomen/Pelvis CT 05/27/20 10:11 IMPRESSION: NO SIGNIFICANT OR ACUTE FINDING IN THE ABDOMEN OR PELVIS ON CT SCAN WITH IV CONTRAST. Assessment & Plan - Diagnosis (1) Intractable vomiting Qualifiers: Vomiting type: unspecified Nausea presence: with nausea Qualified Code(s): R11.2 - Nausea with vomiting, unspecified Is this a current diagnosis for this admission?: Yes (2) Hypokalemia Is this a current diagnosis for this admission?: Yes Plan: She has severe hypokalemia, on replacement therapy - Time Time Spent with patient: 25-34 minutes Level of Care: MEDICAL Medications reviewed and adjusted accordingly: Yes Anticipated discharge: Home
[2020-05-28 21:15] LABS: ALBUMIN 3.4 g/dL (3.5-5.0); ALKALINE PHOSPHATASE 43 U/L (38-126); ANION GAP 12 (5-19); ASPARTATE AMINO TRANSFERASE 23 U/L (14-36); BILIRUBIN,DIRECT 0.2 mg/dL (0.0-0.4); BILIRUBIN,TOTAL 0.4 mg/dL (0.2-1.3); BLOOD UREA NITROGEN 9 mg/dL (7-20); CALCIUM 8.7 mg/dL (8.4-10.2); CARBON DIOXIDE 24 mmol/L (22-30); CHLORIDE 101 mmol/L (98-107); GLUCOSE 124 mg/dL (75-110)
[2020-05-28 21:19] LABS: POTASSIUM 2.8 mmol/L (3.6-5.0)
[2020-05-29] MEDS: POTASSI CL 20 MEQ/50 ML RIDER 20 MEQ/50 ML RTUPB IV SCH ×6 (00:56→23:44)
[2020-05-29] MEDS: ONDANSETRON 4 MG TAB.RAPDIS PO PRN (05:14)
[2020-05-29] MEDS ORDERED: INFLUENZA QUAD (6MOS+) 2020-21 VAC 0.5 ML SYR IM ONE (08:00)
--- NOTE | 2020-05-29 12:32 | EKG REPORT ---
SEVERITY:- ABNORMAL ECG - SINUS RHYTHM NONSPECIFIC T ABNORMALITIES, ANTERIOR LEADS : Confirmed by: Thad Rose MD 29-May-2020 12:31:00
[2020-05-29] MEDS: CHOLECALCIFEROL (D3) 1,000 UNIT (25 MCG) TABLET PO SCH (12:42)
[2020-05-29] MEDS: ZINC SULFATE 220 MG CAPSULE PO SCH (12:42)
[2020-05-29] MEDS: ASCORBIC ACID 500 MG TABLET PO SCH ×2 (12:42→17:44)
[2020-05-29] MEDS: DEXAMETHASONE SOD PHOSPHATE INJ 4 MG/1 ML VIAL IV SCH (12:43)
[2020-05-29] MEDS: PANTOPRAZOLE SODIUM 40 MG VIAL IV SCH ×2 (12:43→21:59)
[2020-05-29] MEDS: ENOXAPARIN SODIUM INJ 40 MG/0.4 ML DISP.SYRIN SUBCUT SCH (12:44)
[2020-05-29] MEDS: RINGERS SOLUTION,LACTATED 1,000 ML IV PRN (12:45)
[2020-05-29 13:13] LABS: ANION GAP 12 (5-19); BLOOD UREA NITROGEN 10 mg/dL (7-20); CALCIUM 8.8 mg/dL (8.4-10.2); CARBON DIOXIDE 24 mmol/L (22-30); CHLORIDE 105 mmol/L (98-107)
[2020-05-29 13:18] LABS: GLUCOSE 92 mg/dL (75-110)
[2020-05-29 13:20] LABS: POTASSIUM 2.8 mmol/L (3.6-5.0)
[2020-05-29] MEDS ORDERED: POTASSI CL 20 MEQ/50 ML RIDER 20 MEQ/50 ML RTUPB IV SCH (16:00)
--- NOTE | 2020-05-29 17:05 | RADIOLOGY REPORT (SQ) ---
EXAM DESCRIPTION: CTA CHEST IMAGES COMPLETED DATE/TIME: 05/29/2020 4:41 pm REASON FOR STUDY: chest pressure COMPARISON: None. TECHNIQUE: CT scan of the chest performed using helical scanning technique with dynamic intravenous contrast injection. Images reviewed with lung, soft tissue and bone windows. Reconstructed coronal and sagittal MPR images reviewed. Additional 3 dimensional post-processing performed to develop Maximal Intensity Projection images ([place] P). All images stored on PACS. All CT scanners at this facility use dose modulation, iterative reconstruction, and/or weight based d osing when appropriate to reduce radiation dose to as low as reasonably achievable (ALARA). [facility]: Dose Right [facility]: CareDose [facility]: Dose Right [facility]: Teradose 4D [facility]: [employer] CONTRAST TYPE AND DOSE: contrast/concentration: Isovue 350.00 mmol/ml; Total Contrast Delivered: 75. 0 ml; Total Saline Delivered: 75.0 ml Contrast bolus optimized for the pulmonary arteries. RENAL FUNCTION: GFR > 60. RADIATION DOSE: CT Rad equipment meets quality standard of care and radiation dose reduction techniq ues were employed. CTDIvol: 9.9 - 14.3 mGy. DLP: 451 mGy-cm. LIMITATIONS: None. FINDINGS: LUNGS AND PLEURA: The trachea and main bronchi are patent. There is no consolidation, lesley und-glass opacification, pleural effusion or pneumothorax. AORTA AND GREAT VESSELS: Evaluation is limited as the contrast bolus was optimized for evaluation of the pulmonary arteries. There is no thoracic aortic aneurysm. HEART: No pericardial effusion. No cardiomegaly. PULMONARY ARTERIES: No emboli. HILAR AND MEDIASTINAL STRUCTURES: No adenopathy or mass. HARDWARE: None in the chest. UPPER ABDOMEN: No acute abnormality. THYROID AND OTHER SOFT TISSUES: No adenopathy or mass. BONES: No fracture or osseous lesion 3D MIPS: Confirm above findings. OTHER: No other findings. IMPRESSION: No acute cardiopulmonary process and no pulmonary emboli. COMMENT: Quality ID # [id number]: Final reports with documentation of one or more dose reduction techniques (e.g., Automated exposure control, adjustment of the mA and/or kV according to patient size, use of iterative reconstruction technique) TECHNICAL DOCUMENTATION: JOB ID: [id number] 2010 [employer]- All Rights Reserved Reading location - IP/workstation name: [email or web address]
--- NOTE | 2020-05-29 19:09 | PDOC PROGRESS REPORT ---
Subjective Date:: 05/29/20 Subjective:: Patient was admitted yesterday for the management of intractable vomiting, there is hypokalemia secondary to the vomiting 05/29/2020 She complain of chest pressure, elephant on the chest, a 12-lead EKG was done, sinus rhythm, Q wave inversion in V1 V2 no change from EKG about 2 [address] A stat [address] angiogram of the chest was obtained negative for Pulmonary embolus ,no pneumonia no masses She has persistent hypokalemia Reason For Visit: HYPOKALEMIA/VOMITING Physical Exam Vital Signs: Temp Pulse Resp BP Pulse Ox 97.8 F 81 16 96/58 L 100 05/29/20 15:22 05/29/20 15:22 05/29/20 15:22 05/29/20 15:22 05/29/20 15:22 Intake & Output 05/28/20 05/29/20 05/30/20 06:59 06:59 06:59 Intake Total 1150 2850 1620 Output Total 300 600 Balance 850 2250 1620 Weight 59.4 kg 59 kg General appearance: PRESENT: no acute distress Eye exam: PRESENT: PERRLA Respiratory exam: PRESENT: clear to auscultation abhishek Cardiovascular exam: PRESENT: +S1, +S2 GI/Abdominal exam: PRESENT: soft Neurological exam: PRESENT: alert Results Laboratory Results: 05/27/20 20:56 05/29/20 12:44 05/28/20 05/29/20 20:33 12:44 Sodium 136.6 L 141.2 Potassium 2.8 L* 2.8 L* Chloride 101 105 Carbon Dioxide 24 24 Anion Gap 12 12 BUN 9 10 Creatinine 0.78 0.75 Est GFR ( Amer) > 60 > 60 Glucose 124 H 92 Calcium 8.7 8.8 Total Bilirubin 0.4 AST 23 Alkaline Phosphatase 43 Total Protein 6.0 L Albumin 3.4 L 05/27/20 16:35 Clean Catch Midstream Urine Culture - Final Lactobacillus (Vaginal Loan) 05/27/20 05/27/20 19:53 19:53 Creatine Kinase 218 H Troponin I < 0.012 Impressions: Abdomen/Pelvis CT 05/27/20 10:11 IMPRESSION: NO SIGNIFICANT OR ACUTE FINDING IN THE ABDOMEN OR PELVIS ON CT SCAN WITH IV CONTRAST. Chest/Abdomen CTA 05/29/20 00:00 IMPRESSION: No acute cardiopulmonary process and no pulmonary emboli. Assessment & Plan - Diagnosis (1) Intractable vomiting Qualifiers: Vomiting type: unspecified Nausea presence: with nausea Qualified Cod e(s): R11.2 - Nausea with vomiting, unspecified Is this a current diagnosis for this admission?: Yes (2) Hypokalemia Is this a current diagnosis for this admission?: Yes Plan: Patient is wasting potassium, the spot urine potassium is 25, this is most likely from IV fluid, change IV fluid to normal saline plus potassium (3) Chest pressure Is this a current diagnosis for this admission?: Yes Plan: CT angiogram negative for pulmonary embolus,monitor cardiac enzymes every 8x3, the twelve-lead EKG, sinus rhythm, Q wave in V1 V2 no change from EKG 2 years ago - Time Time Spent with patient: 25-34 minutes Level of Care: MEDICAL Medications reviewed and adjusted accordingly: Yes Anticipated discharge: Home - Inpatient Certification Based on my medical assessment, after consideration of the patient's comorbidities, presenting symptoms, or acuity I expect that the services needed warrant INPATIENT care.: Yes I certify that my determination is in accordance with my understanding of Medicare's requirements for reasonable and necessary INPATIENT services [42 CFR 412.3e].: Yes
[2020-05-29 19:23] LABS: TROPONIN I < 0.012 ng/mL
[2020-05-29] MEDS: POTASSI CL 40 MEQ/NS 1L 1,000 ML IV PRN (23:44)
[2020-05-30 02:38] LABS: CREATINE KINASE MB 0.46 ng/mL (<4.55)
[2020-05-30 02:39] LABS: TROPONIN I < 0.012 ng/mL
[2020-05-30 08:44] LABS: ABSOLUTE LYMPHOCYTES (AUTO) 2.2 10^3/uL (0.5-4.7); ABSOLUTE MONOCYTES (AUTO) 0.3 10^3/uL (0.1-1.4); ABSOLUTE NEUT (AUTO) 2.5 10^3/uL (1.7-8.2); BASOPHILS % (AUTO) 0.5 % (0-2); EOSINOPHILS % (AUTO) 0.4 % (0-6); HEMATOCRIT 27.6 % (36.0-47.0); LYMPHOCYTES % (AUTO) 43.6 % (13-45); MEAN CORPUSCULAR HEMOGLOBIN 28.4 pg (27.0-33.4); MEAN CORPUSCULAR HGB CONC 34.2 g/dL (32.0-36.0); MEAN CORPUSCULAR VOLUME 83 fl (80-97); MONOCYTES % (AUTO) 5.8 % (3-13); PLATELET COUNT 155 10^3/uL (150-450); RED BLOOD COUNT 3.32 10^6/uL (3.72-5.28); RED CELL DISTRIBUTION WIDTH 13.6 % (11.5-14.0); SEGMENTED NEUTROPHILS % (AUTO) 49.7 % (42-78); TOTAL CELLS COUNTED % (AUTO) 100 %
[2020-05-30 08:46] LABS: HEMOGLOBIN 9.4 g/dL (12.0-15.5)
[2020-05-30 08:58] LABS: ALKALINE PHOSPHATASE 36 U/L (38-126); ANION GAP 8 (5-19); ASPARTATE AMINO TRANSFERASE 20 U/L (14-36); BILIRUBIN,DIRECT 0.1 mg/dL (0.0-0.4); BILIRUBIN,TOTAL 0.3 mg/dL (0.2-1.3); BLOOD UREA NITROGEN 9 mg/dL (7-20); CALCIUM 7.8 mg/dL (8.4-10.2); CARBON DIOXIDE 25 mmol/L (22-30); CHLORIDE 109 mmol/L (98-107); GLUCOSE 80 mg/dL (75-110); POTASSIUM 3.2 mmol/L (3.6-5.0); TOTAL PROTEIN 5.4 g/dL (6.3-8.2)
[2020-05-30 09:09] LABS: CREATINE KINASE MB 0.38 ng/mL (<4.55)
[2020-05-30 09:13] LABS: TROPONIN I < 0.012 ng/mL
[2020-05-30] MEDS: POTASSI CL 40 MEQ/NS 1L 1,000 ML IV PRN ×2 (10:07→22:03)
[2020-05-30] MEDS: ASCORBIC ACID 500 MG TABLET PO SCH ×2 (10:08→18:25)
[2020-05-30] MEDS: PANTOPRAZOLE SODIUM 40 MG VIAL IV SCH ×2 (10:08→22:03)
[2020-05-30] MEDS: CHOLECALCIFEROL (D3) 1,000 UNIT (25 MCG) TABLET PO SCH (10:08)
[2020-05-30] MEDS: ZINC SULFATE 220 MG CAPSULE PO SCH (10:08)
[2020-05-30] MEDS: ENOXAPARIN SODIUM INJ 40 MG/0.4 ML DISP.SYRIN SUBCUT SCH (10:09)
[2020-05-30] MEDS: ONDANSETRON 4 MG TAB.RAPDIS PO PRN (11:41)
[2020-05-30] MEDS ORDERED: BISACODYL 5 MG TABEC PO ONE ×3 (15:15→18:22)
--- NOTE | 2020-05-30 16:31 | PDOC PROGRESS REPORT ---
Subjective Date:: 05/30/20 Subjective:: Patient was admitted yesterday for the management of intractable vomiting, there is hypokalemia secondary to the vomiting 05/29/2020 She complain of chest pressure, elephant on the chest, a 12-lead EKG was done, sinus rhythm, Q wave inversion in V1 V2 no change from EKG about 2 years [address] A stat [address] angiogram of the chest was obtained negative for Pulmonary embolus ,no pneumonia no masses She has persistent hypokalemia 05/30/2020 Patient seen by the bedside, she complain of constipation there is improvement in the serum hypokalemia. The CTA was negative, the series of cardiac enzymes negative, hopefully she will be discharge Home tomorrow Reason For Visit: HYPOKALEMIA/VOMITING Physical Exam Vital Signs: Temp Pulse Resp BP Pulse Ox 97.9 F 66 16 100/64 100 05/30/20 15:25 05/30/20 15:25 05/30/20 15:25 05/30/20 15:25 05/30/20 12:00 Intake & Output 05/29/20 05/30/20 05/31/20 06:59 06:59 06:59 Intake Total 2850 1970 1100 Output Total 600 550 Balance 2250 1420 1100 Weight 59 kg 60.4 kg General appearance: PRESENT: no acute distress Eye exam: PRESENT: PERRLA Respiratory exam: PRESENT: clear to auscultation abhishek Cardiovascular exam: PRESENT: +S1, +S2 GI/Abdominal exam: PRESENT: soft Neurological exam: PRESENT: alert Results Laboratory Results: 05/30/20 08:09 05/30/20 08:09 05/30/20 05/30/20 08:09 08:09 WBC 5.0 RBC 3.32 L Hgb 9.4 L D Hct 27.6 L MCV 83 MCH 28.4 MCHC 34.2 RDW 13.6 Plt Count 155 Seg Neutrophils % 49.7 Sodium 142.2 Potassium 3.2 L Chloride 109 H Carbon Dioxide 25 Anion Gap 8 BUN 9 Creatinine 0.64 Est GFR ( Amer) > 60 Glucose 80 Calcium 7.8 L Total Bilirubin 0.3 AST 20 Alkaline Phosphatase 36 L Total Protein 5.4 L Albumin 3.0 L 05/27/20 05/27/20 05/29/20 19:53 19:53 18:30 Creatine Kinase 218 H 139 H CK-MB (CK-2) Troponin I < 0.012 05/29/20 05/30/20 05/30/20 18:30 01:50 01:50 Creatine Kinase 127 CK-MB (CK-2) 0.70 0.46 Troponin I < 0.012 < 0.012 05/30/20 05/30/20 08:09 08:09 Creatine Kinase 129 CK-MB (CK-2) 0.38 Troponin I < 0.012 Impressions: Abdomen/Pelvis CT 05/27/20 10:11 IMPRESSION: NO SIGNIFICANT OR ACUTE FINDING IN THE ABDOMEN OR PELVIS ON CT SCAN WITH IV CONTRAST. Chest/Abdomen CTA 05/29/20 00:00 IMPRESSION: No acute cardiopulmonary process and no pulmonary emboli. Assessment & Plan - Diagnosis (1) Intractable vomiting Qualifiers: Vomiting type: unspecified Nausea presence: with nausea Qualified Cod e(s): R11.2 - Nausea with vomiting, unspecified Is this a current diagnosis for this admission?: Yes Plan: She has no more episode of vomiting (2) Hypokalemia Is this a current diagnosis for this admission?: Yes Plan: The serum hypokalemia is improved, once corrected she will be discharge home tomorrow (3) Chest pressure Is this a current diagnosis for this admission?: Yes Plan: CT angiogram negative for pulmonary embolus,monitor cardiac enzymes every 8x3, the twelve-lead EKG, sinus rhythm, Q wave in V1 V2 no change from EKG 2 years ago, This is probably GI related symptoms - Time Time Spent with patient: 25-34 minutes Level of Care: IMCU Medications reviewed and adjusted accordingly: Yes Anticipated discharge: Home Anticipated DC Timeframe: within 24 hours
[2020-05-30 17:56] LABS: ALBUMIN 3.1 g/dL (3.5-5.0); ALKALINE PHOSPHATASE 38 U/L (38-126); ANION GAP 7 (5-19); ASPARTATE AMINO TRANSFERASE 22 U/L (14-36); BILIRUBIN,DIRECT 0.1 mg/dL (0.0-0.4); BILIRUBIN,TOTAL 0.3 mg/dL (0.2-1.3); BLOOD UREA NITROGEN 7 mg/dL (7-20); CARBON DIOXIDE 28 mmol/L (22-30); CHLORIDE 106 mmol/L (98-107); GLUCOSE 95 mg/dL (75-110); POTASSIUM 3.1 mmol/L (3.6-5.0); TOTAL PROTEIN 5.6 g/dL (6.3-8.2)
[2020-05-31] MEDS: POTASSI CL 20 MEQ/50 ML RIDER 20 MEQ/50 ML RTUPB IV SCH ×2 (06:30→08:24)
[2020-05-31] MEDS: PANTOPRAZOLE SODIUM 40 MG VIAL IV SCH ×2 (09:48→21:38)
[2020-05-31] MEDS: ZINC SULFATE 220 MG CAPSULE PO SCH (09:48)
[2020-05-31] MEDS: CHOLECALCIFEROL (D3) 1,000 UNIT (25 MCG) TABLET PO SCH (09:49)
[2020-05-31] MEDS: ENOXAPARIN SODIUM INJ 40 MG/0.4 ML DISP.SYRIN SUBCUT SCH (09:49)
[2020-05-31 10:07] LABS: ALBUMIN 2.7 g/dL (3.5-5.0); ALKALINE PHOSPHATASE 33 U/L (38-126); ASPARTATE AMINO TRANSFERASE 31 U/L (14-36); BILIRUBIN,DIRECT 0.1 mg/dL (0.0-0.4); BILIRUBIN,TOTAL 0.3 mg/dL (0.2-1.3); BLOOD UREA NITROGEN 6 mg/dL (7-20); CALCIUM 7.7 mg/dL (8.4-10.2); CARBON DIOXIDE 29 mmol/L (22-30); GLUCOSE 91 mg/dL (75-110); POTASSIUM 3.5 mmol/L (3.6-5.0)
[2020-05-31 10:13] LABS: CHLORIDE 109 mmol/L (98-107)
[2020-05-31 10:15] LABS: ANION GAP 3 (5-19)
[2020-05-31] MEDS: ASCORBIC ACID 500 MG TABLET PO SCH ×2 (14:32→17:00)
--- NOTE | 2020-05-31 16:47 | PDOC PROGRESS REPORT ---
Subjective Date:: 05/31/20 Subjective:: Patient was admitted yesterday for the management of intractable vomiting, there is hypokalemia secondary to the vomiting 05/29/2020 She complain of chest pressure, elephant on the chest, a 12-lead EKG was done, sinus rhythm, Q wave inversion in V1 V2 no change from EKG about 2 [address] A stat [address] angiogram of the chest was obtained negative for Pulmonary embolus ,no pneumonia no masses She has persistent hypokalemia 05/30/2020 Patient seen by the bedside, she complain of constipation there is improvement in the serum hypokalemia. The CTA was negative, the series of cardiac enzymes negative, hopefully she will be discharge Home tomorrow 05/31/2020 Patient was seen by the bedside she complained of nonspecific symptoms, the potassium is 3.5 today, there is no more vomiting in the last 48 hours, once potassium is corrected hopefully discharge home in the next 24 hours Reason For Visit: HYPOKALEMIA/VOMITING Physical Exam Vital Signs: Temp Pulse Resp BP Pulse Ox 97.9 F 59 L 16 99/59 L 100 05/31/20 08:43 05/31/20 08:43 05/31/20 08:43 05/31/20 08:43 05/31/20 08:43 Intake & Output 05/30/20 05/31/20 06/01/20 06:59 06:59 06:59 Intake Total 1970 2400 48 Output Total 550 800 Balance 1420 1600 48 Weight 60.4 kg 65 kg General appearance: PRESENT: no acute distress Eye exam: PRESENT: PERRLA Respiratory exam: PRESENT: clear to auscultation abhishek Cardiovascular exam: PRESENT: +S1, +S2 GI/Abdominal exam: PRESENT: soft Neurological exam: PRESENT: alert, motor sensory deficit Results Laboratory Results: 05/30/20 08:09 05/31/20 09:27 05/30/20 05/31/20 17:27 09:27 Sodium 140.6 141.2 Potassium 3.1 L 3.5 L Chloride 106 109 H Carbon Dioxide 28 29 Anion Gap 7 3 L BUN 7 6 L Creatinine 0.64 0.64 Est GFR ( Amer) > 60 > 60 Glucose 95 91 Calcium 8.0 L 7.7 L Total Bilirubin 0.3 0.3 AST 22 31 Alkaline Phosphatase 38 33 L Total Protein 5.6 L 5.0 L Albumin 3.1 L 2.7 L 05/27/20 05/27/20 05/29/20 19:53 19:53 18:30 Creatine Kinase 218 H 139 H CK-MB (CK-2) Troponin I < 0.012 05/29/20 05/30/20 05/30/20 18:30 01:50 01:50 Creatine Kinase 127 CK-MB (CK-2) 0.70 0.46 Troponin I < 0.012 < 0.012 05/30/20 05/30/20 08:09 08:09 Creatine Kinase 129 CK-MB (CK-2) 0.38 Troponin I < 0.012 Impressions: Abdomen/Pelvis CT 05/27/20 10:11 IMPRESSION: NO SIGNIFICANT OR ACUTE FINDING IN THE ABDOMEN OR PELVIS ON CT SCAN WITH IV CONTRAST. Chest/Abdomen CTA 05/29/20 00:00 IMPRESSION: No acute cardiopulmonary process and no pulmonary emboli. Assessment & Plan - Diagnosis (1) Intractable vomiting Qualifiers: Vomiting type: unspecified Nausea presence: with nausea Qualified Code(s): R11.2 - Nausea with vomiting, unspecified Is this a current diagnosis for this admission?: Yes Plan: There is no vomiting in the last 48 hours (2) Hypokalemia Is this a current diagnosis for this admission?: Yes Plan: The serum hypokalemia is improved, once corrected she will be discharge home tomorrow (3) Chest pressure Is this a current diagnosis for this admission?: Yes Plan: CT angiogram negative for pulmonary embolus,monitor cardiac enzymes every 8x3, the twelve-lead EKG, sinus rhythm, Q wave in V1 V2 no change from EKG 2 years ago, This is probably GI related symptoms - Time Time Spent with patient: 35 or more minutes Level of Care: MEDICAL Medications reviewed and adjusted accordingly: Yes Anticipated discharge: Home Anticipated DC Timeframe: within 24 hours
[2020-05-31] MEDS: POTASSI CL 40 MEQ/NS 1L 1,000 ML IV PRN (16:54)
[2020-05-31 20:34] LABS: BLOOD UREA NITROGEN 7 mg/dL (7-20); CALCIUM 8.1 mg/dL (8.4-10.2); CHLORIDE 106 mmol/L (98-107); GLUCOSE 105 mg/dL (75-110); POTASSIUM 3.5 mmol/L (3.6-5.0)
[2020-05-31 20:39] LABS: CARBON DIOXIDE 31 mmol/L (22-30)
[2020-05-31 20:41] LABS: ANION GAP 1 (5-19)
[2020-06-01] MEDS: ACETAMINOPHEN 325 MG TABLET PO PRN ×2 (03:56→09:17)
[2020-06-01 07:10] LABS: ABSOLUTE EOSINOPHILS # (AUTO) 0.1 10^3/uL (0.0-0.6); ABSOLUTE LYMPHOCYTES (AUTO) 1.7 10^3/uL (0.5-4.7); ABSOLUTE MONOCYTES (AUTO) 0.3 10^3/uL (0.1-1.4); ABSOLUTE NEUT (AUTO) 1.7 10^3/uL (1.7-8.2); BASOPHILS % (AUTO) 0.9 % (0-2); EOSINOPHILS % (AUTO) 1.4 % (0-6); HEMATOCRIT 27.6 % (36.0-47.0); HEMOGLOBIN 9.5 g/dL (12.0-15.5); LYMPHOCYTES % (AUTO) 44.3 % (13-45); MEAN CORPUSCULAR HEMOGLOBIN 28.4 pg (27.0-33.4); MEAN CORPUSCULAR HGB CONC 34.6 g/dL (32.0-36.0); MEAN CORPUSCULAR VOLUME 82 fl (80-97); MONOCYTES % (AUTO) 8.3 % (3-13); PLATELET COUNT 164 10^3/uL (150-450); RED BLOOD COUNT 3.35 10^6/uL (3.72-5.28); RED CELL DISTRIBUTION WIDTH 13.6 % (11.5-14.0); SEGMENTED NEUTROPHILS % (AUTO) 45.1 % (42-78); TOTAL CELLS COUNTED % (AUTO) 100 %; WHITE BLOOD COUNT 3.7 10^3/uL (4.0-10.5)
[2020-06-01 07:26] LABS: ALBUMIN 2.8 g/dL (3.5-5.0); ALKALINE PHOSPHATASE 31 U/L (38-126); ASPARTATE AMINO TRANSFERASE 30 U/L (14-36); BILIRUBIN,DIRECT 0.2 mg/dL (0.0-0.4); BILIRUBIN,TOTAL 0.4 mg/dL (0.2-1.3); BLOOD UREA NITROGEN 5 mg/dL (7-20); CALCIUM 8.2 mg/dL (8.4-10.2); CARBON DIOXIDE 31 mmol/L (22-30); CHLORIDE 105 mmol/L (98-107); GLUCOSE 87 mg/dL (75-110); POTASSIUM 3.5 mmol/L (3.6-5.0); TOTAL PROTEIN 5.1 g/dL (6.3-8.2)
[2020-06-01 07:29] LABS: ANION GAP 4 (5-19)
[2020-06-01] MEDS: ASCORBIC ACID 500 MG TABLET PO SCH (09:23)
[2020-06-01] MEDS: CHOLECALCIFEROL (D3) 1,000 UNIT (25 MCG) TABLET PO SCH (09:23)
[2020-06-01] MEDS: PANTOPRAZOLE SODIUM 40 MG VIAL IV SCH (09:23)
[2020-06-01] MEDS: ENOXAPARIN SODIUM INJ 40 MG/0.4 ML DISP.SYRIN SUBCUT SCH (09:26)
[2020-06-01] MEDS: POTASSI CL 40 MEQ/NS 1L 1,000 ML IV PRN (09:55)
[2020-06-01] MEDS: ZINC SULFATE 220 MG CAPSULE PO SCH (10:00)
[2020-06-01 17:02] VITALS: BP 131/58
--- NOTE | 2020-06-01 17:26 | PDOC DISCHARGE SUMMARY ---
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 Is this a current diagnosis for this admission?: Yes - Additional Information Discharge Activity: Activity As Tolerated, Balance Activity w/Rest, Supervised Activity Referrals: VALERIE LEE MD [Primary Care Provider] - Follow up as needed (Please follow up with primary care provider in one week.) Home Medications: Potassium Chloride [Klor-Con M20] 20 meq PO DAILY #10 tab.er.prt 05/12/20 Ergocalciferol (Vitamin D2) [Drisdol 50,000 unit (1.25MG) Capsule] 50,000 unit PO VEGA@1000 05/27/20 Hydrochlorothiazide [Hydrodiuril 25 mg Tablet] 25 mg PO QAM 05/27/20 Ondansetron [Zofran Odt 4 mg Tablet] 1 tab PO Q8HP PRN 05/27/20 Pantoprazole Sodium [Protonix [address] Tablet] 40 mg PO QAM@0630 05/27/20 Topiramate [Topamax] 50 mg PO BID 05/27/20 Acetaminophen [Tylenol 325 mg Tablet] 650 mg PO Q4HP PRN tablet 06/01/20 Ascorbic Acid [Vitamin C 500 mg Tablet] 500 mg PO BID tablet 06/01/20 Cholecalciferol (Vitamin D3) [Vitamin D3 1000 Unit Tablet] 2,000 unit PO DAILY tablet 06/01/20 Ondansetron [Zofran Odt 4 mg Tablet] 4 mg PO Q6HP PRN tab.rapdis 06/01/20 Pantoprazole Sodium [Protonix IV Inj 40 mg Vial] 40 mg IV Q12 vial 06/01/20 Zinc Sulfate [Zinc-220 Capsule] 220 mg PO DAILY capsule 06/01/20 History of Present Illiness History of Present Illness: SHAWNEE CARR is a 35 year old female, She was seen today in the office for evaluation of persistent vomiting, she was in the office about 10 days ago for the same problem, she also complain of early satiety, she was referred to GI that they were GI for upper endoscopy, this was done last week, she was found to have gastritis with erosion of the gastric mucosa, there was no gastric outlet obstruction, because of the persistent vomiting it was felt that patient needed inpatient care. The initial blood work that was done revealed severe hypokalemia.She has underlining right-sided hemiparesis, she is being evaluated at [facility] for the etiology of the weakness Hospital Course Hospital Course: Patient was admitted for the management of persistent vomiting with associated hypokalemia, she was brought in for observation initially.She was treated with normal saline with potassium, the serum potassium was corrected. A CAT scan of the abdomen and pelvis was obtained it was negative, she complain of chest pressure, CT angiogram of the chest was done, it was negative for pulmonary embolus and no pneumonia..She has protracted hypokalemia requiring replacement therapy multiple times with K riders, she has underlining right-sided weakness, she follows with neurology [facility] Physical Exam Vital Signs: Temp Pulse Resp BP Pulse Ox 97.5 F 68 18 131/58 H 100 06/01/20 16:56 06/01/20 16:56 06/01/20 16:56 06/01/20 16:56 06/01/20 16:56 Intake & Output 05/31/20 06/01/20 06/02/20 06:59 06:59 06:59 Intake Total 2400 2648 Output Total 800 1900 Balance 1600 748 Weight 65 kg 65 kg General appearance: PRESENT: no acute distress Eye exam: PRESENT: PERRLA Respiratory exam: PRESENT: clear to auscultation abhishek Cardiovascular exam: PRESENT: +S1, +S2 GI/Abdominal exam: PRESENT: soft Neurological exam: PRESENT: alert, motor sensory deficit Results Laboratory Results: WBC 3.7 10^3/uL (4.0-10.5) L 06/01/20 06:58 RBC 3.35 10^6/uL (3.72-5.28) L 06/01/20 06:58 Hgb 9.5 g/dL (12.0-15.5) L 06/01/20 06:58 Hct 27.6 % (36.0-47.0) L 06/01/20 06:58 MCV 82 fl (80-97) 06/01/20 06:58 MCH 28.4 pg (27.0-33.4) 06/01/20 06:58 MCHC 34.6 g/dL (32.0-36.0) 06/01/20 06:58 RDW 13.6 % (11.5-14.0) 06/01/20 06:58 Plt Count 164 10^3/uL (150-450) 06/01/20 06:58 Lymph % (Auto) 44.3 % (13-45) 06/01/20 06:58 [place] % (Auto) 8.3 % (3-13) 06/01/20 06:58 Eos % (Auto) 1.4 % (0-6) 06/01/20 06:58 Baso % (Auto) 0.9 % (0-2) 06/01/20 06:58 Absolute Neuts (auto) 1.7 10^3/uL (1.7-8.2) 06/01/20 06:58 Absolute Lymphs (auto) 1.7 10^3/uL (0.5-4.7) 06/01/20 06:58 Absolute Monos (auto) 0.3 10^3/uL (0.1-1.4) 06/01/20 06:58 Absolute Eos (auto) 0.1 10^3/uL (0.0-0.6) 06/01/20 06:58 Absolute Basos (auto) 0.0 10^3/uL (0.0-0.2) 06/01/20 06:58 Seg Neutrophils % 45.1 % (42-78) 06/01/20 06:58 Platelet Estimate Cancelled 05/27/20 19:53 PT 14.5 SEC (11.4-15.4) 05/27/20 19:53 INR 1.11 05/27/20 19:53 APTT 30.7 SEC (23.5-35.8) 05/27/20 19:53 Fibrinogen 302 mg/dL (209-497) 05/27/20 19:53 D-Dimer 0.70 ug/mL (0.00-0.50) H 05/27/20 19:53 Sodium 140.0 mmol/L (137-145) 06/01/20 06:58 Potassium 3.5 mmol/L (3.6-5.0) L 06/01/20 06:58 Chloride 105 mmol/L (98-107) 06/01/20 06:58 Carbon Dioxide 31 mmol/L (22-30) H 06/01/20 06:58 Anion Gap 4 (5-19) L 06/01/20 06:58 BUN 5 mg/dL (7-20) L 06/01/20 06:58 Creatinine 0.57 mg/dL (0.52-1.25) 06/01/20 06:58 Est GFR ( Amer) > 60 (>60) 06/01/20 06:58 Est GFR (MDRD) Non-Af > 60 (>60) 06/01/20 06:58 Glucose 87 mg/dL (75-110) 06/01/20 06:58 Calcium 8.2 mg/dL (8.4-10.2) L 06/01/20 06:58 Magnesium 2.2 mg/dL (1.6-2.3) 05/27/20 11:17 Ferritin 117.00 ng/mL (6.2-137.0) 05/27/20 19:53 Total Bilirubin 0.4 mg/dL (0.2-1.3) 06/01/20 06:58 Direct Bilirubin 0.2 mg/dL (0.0-0.4) 06/01/20 06:58 Neonat Total Bilirubin Not Reportable 06/01/20 06:58 Neonat Direct Bilirubin Not Reportable 06/01/20 06:58 Neonat Indirect Bili Not Reportable 06/01/20 06:58 AST 30 U/L (14-36) 06/01/20 06:58 ALT 15 U/L (<35) 06/01/20 06:58 Alkaline Phosphatase 31 U/L (38-126) L 06/01/20 06:58 Lactate Dehydrogenase 158 U/L (120-246) 05/27/20 19:53 Creatine Kinase 129 U/L (30-135) 05/30/20 08:09 CK-MB (CK-2) 0.38 ng/mL (<4.55) 05/30/20 08:09 Troponin I < 0.012 ng/mL 05/30/20 08:09 C-Reactive Protein < 5.0 mg/L (<10.0) 05/27/20 19:53 Total Protein 5.1 g/dL (6.3-8.2) L 06/01/20 06:58 Albumin 2.8 g/dL (3.5-5.0) L 06/01/20 06:58 TSH 1.78 uIU/mL (0.47-4.68) 05/27/20 11:17 Free T4 1.94 ng/dL (0.78-2.19) 05/27/20 11:17 Free T3 pg/mL 3.02 pg/mL (2.77-5.27) 05/27/20 11:17 Urine Color YELLOW 05/27/20 16:35 Urine Appearance CLEAR 05/27/20 16:35 Urine pH 6.0 (5.0-9.0) 05/27/20 16:35 Ur Specific [place] 1.032 05/27/20 16:35 Urine Protein NEGATIVE mg/dL (NEGATIVE) 05/27/20 16:35 Urine Glucose (UA) NEGATIVE mg/dL (NEGATIVE) 05/27/20 16:35 Urine Ketones 80 mg/dL (NEGATIVE) H 05/27/20 16:35 Urine Blood NEGATIVE (NEGATIVE) 05/27/20 16:35 Urine Nitrite NEGATIVE (NEGATIVE) 05/27/20 16:35 Urine Bilirubin NEGATIVE (NEGATIVE) 05/27/20 16:35 Urine Urobilinogen NEGATIVE mg/dL (<2.0) 05/27/20 16:35 Ur Leukocyte Esterase NEGATIVE (NEGATIVE) 05/27/20 16:35 Urine WBC (Auto) 2 /HPF 05/27/20 16:35 Urine RBC (Auto) 0 /HPF 05/27/20 16:35 U Hyaline Cast (Auto) 1 /LPF 05/27/20 16:35 Squamous Epi Cells Auto 3 /HPF 05/27/20 16:35 Urine Mucus (Auto) RARE /LPF 05/27/20 16:35 Urine Potassium 25.4 mmol/L (17-145) 05/29/20 14:13 Urine Ascorbic Acid NEGATIVE (NEGATIVE) 05/27/20 16:35 Urine HCG, Qual NEGATIVE (NEGATIVE) 05/27/20 16:35 Influenza A (RT-PCR) NEGATIVE (NEGATIVE) 05/27/20 20:38 Influenza B (RT-PCR) NEGATIVE (NEGATIVE) 05/27/20 20:38 RSV (RT-PCR) NEGATIVE (NEGATIVE) 05/27/20 20:38 SARS-CoV-2 Rap RNA(RT-PCR) NEGATIVE (NEGATIVE) 05/27/20 20:38 Slides for Path Review Cancelled 05/27/20 19:53 05/27/20 05/29/20 05/30/20 19:53 18:30 01:50 CK-MB (CK-2) 0.70 0.46 Troponin I < 0.012 < 0.012 < 0.012 05/30/20 08:09 CK-MB (CK-2) 0.38 Troponin I < 0.012 Impressions: Abdomen/Pelvis CT 05/27/20 10:11 IMPRESSION: NO SIGNIFICANT OR ACUTE FINDING IN THE ABDOMEN OR PELVIS ON CT SCAN WITH IV CONTRAST. Chest/Abdomen CTA 05/29/20 00:00 IMPRESSION: No acute cardiopulmonary process and no pulmonary emboli. Stroke Is this a Stroke Patient?: No Acute Heart Failure Is this a Heart Failure Patient?: No
== END 2020-06-01 17:45 | disposition home or self-care (01) | DRG 641 ==
LOC: ER 09:52 → EH 13:37 → 2N 18:15 → OBSVTOIN 05-29 14:46
PROVIDERS: ADMIT Internal Medicine; ATTEND Internal Medicine
DX: E87.6 Hypokalemia (principal); I69.351 Hemiplegia and hemiparesis following cerebral infarction affecting right dominant side; R11.2 Nausea with vomiting, unspecified; I10 Essential (primary) hypertension; J45.909 Unspecified asthma, uncomplicated; Z88.0 Allergy status to penicillin; R07.89 Other chest pain; Z20.828 Contact with and (suspected) exposure to other viral communicable diseases; Z23 Encounter for immunization
CPT/HCPCS: 36415; 71275; 74177; 80048; 80053; 81001; 81025; 82550; 82553; 82728; 83615; 83735; 84133; 84439; 84443; 84481; 84484; 85025; 85379; 85384; 85610; 85730; 86140; 87070; 87086; 87804; 90471; 90686; 93005; 93010; 96361; 96365; 96375; 99285; 0241U; C9113; C9803; G0008; G0378; J1100; J1650; J2405; J3480; J3490; J7120; S0119

== ENCOUNTER 2020-07-24 16:15 | Emergency (ER) | payer BC ==
--- NOTE | 2020-07-24 17:41 | ER Document Report ---
ED Medical Screen (RME) - General Stated Complaint: URINATION AND BOWEL PROBLEM Time Seen by Provider: 07/24/20 17:32 Primary Care Provider: VALERIE LEE MD [Primary Care Provider] - Follow up as needed Notes: Patient is a 35-year-old female who presents emergency department with a chief complaint of loss of rectal sensation and control of bowel movement. Patient reports she does follow a Dr. at [facility], and is unsure of the name. Patient states they are doing multiple test to diagnose a neurological disorder, perhaps in this. At this time there is no true diagnoses. Starting in April 2020 patient became wheelchair-bound and does not ambulate. Patient states that 1 week ago she developed the acute onset of loss of bowels, she states that she will be sitting there and noticed an odor and looking she has had a bowel movement. She said that she cannot control this. Patient states that she intermittently will lose control of her bladder as well. Denies back pain. TRAVEL OUTSIDE OF THE [place] IN LAST 30 DAYS: No - Related Data Allergies/Adverse Reactions: Penicillins Allergy (Verified 07/24/20 17:32) Home Medications: losartan. potassium. megestrol. topiramate. vitamin d Past Medical History - Social History Chew tobacco use (# tins/day): No Frequency of alcohol use: None Drug Abuse: None - Past Medical History Cardiac Medical History: Reports: Hx Hypertension Pulmonary Medical History: Reports: Hx Asthma Renal/ Medical History: Denies: Hx Peritoneal Dialysis Psychiatric Medical History: Denies: Hx Depression - Immunizations Hx Diphtheria, Pertussis, Tetanus Vaccination: Yes Physical Exam - Vital signs Vitals: Temp Pulse Resp BP Pulse Ox 98.9 F 89 16 133/95 H 100 07/24/20 16:55 07/24/20 16:55 07/24/20 16:55 07/24/20 16:55 07/24/20 16:55 Course - Re-evaluation Re-evalutation: 07/24/20 17:40 Unable to appropriately assess the patient as she is wheelchair-bound and in triage. Patient will be placed in a gown once placed in a private room. We will start out with basic labs as well as urinalysis. I have greeted and performed a rapid initial assessment of this patient. A comprehensive ED assessment and evaluation of the patient, analysis of test results and completion of the medical decision making process will be conducted by additional ED providers. - Vital Signs Vital signs: Temp Pulse Resp BP Pulse Ox 98.9 F 89 16 133/95 H 100 07/24/20 16:55 07/24/20 16:55 07/24/20 16:55 07/24/20 16:55 07/24/20 16:55 Doctor's Discharge - Discharge Referrals: VALERIE LEE MD [Primary Care Provider] - Follow up as needed
[2020-07-24 18:21] LABS: ABSOLUTE EOSINOPHILS # (AUTO) 0.1 10^3/uL (0.0-0.6); ABSOLUTE LYMPHOCYTES (AUTO) 2.3 10^3/uL (0.5-4.7); ABSOLUTE MONOCYTES (AUTO) 0.2 10^3/uL (0.1-1.4); ABSOLUTE NEUT (AUTO) 1.9 10^3/uL (1.7-8.2); BASOPHILS % (AUTO) 0.9 % (0-2); EOSINOPHILS % (AUTO) 1.4 % (0-6); HEMATOCRIT 35.3 % (36.0-47.0); HEMOGLOBIN 12.1 g/dL (12.0-15.5); MEAN CORPUSCULAR HEMOGLOBIN 29.2 pg (27.0-33.4); MEAN CORPUSCULAR HGB CONC 34.3 g/dL (32.0-36.0); MEAN CORPUSCULAR VOLUME 85 fl (80-97); MONOCYTES % (AUTO) 5.2 % (3-13); PLATELET COUNT 277 10^3/uL (150-450); RED BLOOD COUNT 4.15 10^6/uL (3.72-5.28); RED CELL DISTRIBUTION WIDTH 15.6 % (11.5-14.0); SEGMENTED NEUTROPHILS % (AUTO) 42.5 % (42-78); TOTAL CELLS COUNTED % (AUTO) 100 %; WHITE BLOOD COUNT 4.5 10^3/uL (4.0-10.5)
[2020-07-24 18:38] LABS: ALBUMIN 4.2 g/dL (3.5-5.0); ALKALINE PHOSPHATASE 45 U/L (38-126); ANION GAP 7 (5-19); ASPARTATE AMINO TRANSFERASE 14 U/L (14-36); BILIRUBIN,DIRECT 0.2 mg/dL (0.0-0.4); BILIRUBIN,TOTAL 0.3 mg/dL (0.2-1.3); BLOOD UREA NITROGEN 11 mg/dL (7-20); CALCIUM 9.2 mg/dL (8.4-10.2); CARBON DIOXIDE 20 mmol/L (22-30); CHLORIDE 113 mmol/L (98-107); GLUCOSE 95 mg/dL (75-110); POTASSIUM 3.6 mmol/L (3.6-5.0); TOTAL PROTEIN 7.2 g/dL (6.3-8.2)
[2020-07-24 20:36] LABS: APPEARANCE,URINE CLEAR; BILIRUBIN,URINE NEGATIVE (NEGATIVE); COLOR,URINE YELLOW; GLUCOSE, URINE NEGATIVE (NEGATIVE); KETONES,URINE NEGATIVE (NEGATIVE); LEUKOCYTE ESTERASE,URINE NEGATIVE (NEGATIVE); NITRITE,URINE NEGATIVE (NEGATIVE); PROTEIN,URINE NEGATIVE (NEGATIVE); URINE SPECIFIC GRAVITY 1.019
--- OUTSIDE RECORDS SUMMARY | 2020-07-24 21:57 | XMS REPORT ---
:1985 [facility] Address [facility] [address] [place] [address] Care Team Providers Name Role Phone VALERIE LEE Primary Care Physician Unavailable HANSEL MELVIN Attending Clinician Unavailable AB PUGH Attending Clinician Unavailable CAESAR KATZ Attending Clinician Unavailable Allergies, Adverse Reactions, Alerts Allergy Allergy Status Severity Reaction(s) Onset Inactive Treating C omments Name Type Date Date Clinician Penicillin Penicillin Inactive anaphylaxis 3-09 00:00: 00 Penicillin Penicillin Inactive anaphylaxis 2-28 00:00: 00 Penicillins Drug Active High Hives 2016-0 Allergy 4-11 00:00: 00 Penicillins Propensity Active Severe Hives to adverse 4-11 reactions 00:00: to drug 00 Penicillins Allergy to Active Moderate Hives substance to severe Medications Ordered Filled Start Stop Current Ordering Indication Dosage Frequency Signature Comments Components Medication Medication Date Date Medication? Clinician (SIG) Name Name losartan No 1{tbl} Take 1 Take 1 (COZAAR) 1-07 tablet by tablet by 100 MG 00:00: mouth mouth tablet 00 daily. daily. cephalexin 2019-07 No 1{capsu Take 1 Take 1 (KEFLEX) 2-29 le} capsule by capsul e 500 MG 00:00: mouth by mouth capsule 00 Every six Every si x (6) hours. (6) hours. megestroL 2019-07 No 40mg Take 40 mg Take 40 (MEGACE) 40 2-24 by mouth mg by MG tablet 00:00: Two (2) mouth T wo 00 times a (2) times day. a day. ondansetron 2019-07 No 1{tbl} Take 1 Take 1 (ZOFRAN-ODT 1-22 tablet by tabl et by ) 4 MG 00:00: mouth mouth disintegrat 00 every every ing tablet eight (8) eight (8) hours as hours as needed. needed. LORazepam 2019-07 No 1mg 1 mg, (ATIVAN) 07-23 Intravenou injection 1 09:48: s, Every mg 01 15 min PRN, anxiety, for lumbar puncture, Starting Safia 05/23/20 at 0948, For 2 doses
S TAT potassium 2019-0 Yes Low blood 10meq Take 1 Take 1 chloride 9-18 potassium tablet (10 ta blet (KLOR-CON) 00:00: mEq total) (10 mEq 10 MEQ CR 00 by mouth total) by tablet daily. The mouth patient daily. MUST The contact patient PCP for MUST further contact management PCP for further managemen t ergocalcife 2019-0 Yes Vitamin D 51310Z Take 1 T brenda 1 rol 03-11 deficiency capsule capsule (DRISDOL) 00:00: (50,000 (50,000 1,250 mcg 00 Units Units (50,000 total) by total) b y unit) mouth once mouth capsule a week. once a week. naproxen 2019-0 Yes Arthralgia, 500mg Take 1 Sunil e 1 (NAPROSYN) 9-04 unspecified tablet ta blet 500 MG 00:00: joint (500 mg (500 mg tablet 00 total) by total) by mouth mouth every every twelve twelve (12) hours (12) as needed. hours as needed. potassium 2020- No Low blood 10meq Take 1 Take 1 chloride 8-29 09-16 potassium tablet (10 ta blet (KLOR-CON) 00:00: 00:00 mEq total) (10 mEq 10 MEQ CR 00 :00 by mouth total) by tablet daily. mouth daily. naproxen 2020-0 Yes (NAPROSYN) 8- 500 MG 00:00: tablet 00 naproxen 2020-0 2020- No Arthralgia, 500mg Take 1 Sunil e 1 (NAPROSYN) 8 09-04 unspecified tablet ta blet 500 MG 00:00: 00:00 joint (500 mg (500 mg tablet 00 :00 total) by total) by mouth mouth every every twelve twelve (12) hours (12) as needed. hours as needed. topiramate 2019-0 Yes TK 2 TS PO (TOPAMAX) 8-20 BID FOR 25 MG 00:00: MIGRAINE tablet 00 topiramate Yes TK 2 TS PO TK 2 TS (TOPAMAX) 7-23 BID FOR PO BID 25 MG 00:00: MIGRAINE FOR tablet 00 MIGRAINE hydroCHLORO Yes TK 1 T PO thiazide 7-14 QD IN THE (HYDRODIURI 00:00: MORNING L) 25 MG 00 tablet ergocalcife Yes TK 1 C PO rol, 5-29 WEEKLY FOR vitamin D2, 00:00: 8 WKS 1,250 mcg 00 (50,000 unit) capsule verapamiL Yes TK 1 T PO (CALAN) 80 5-20 TID MG tablet 00:00: 00 ibuprofen Yes TK 1 T PO (MOTRIN) 5-20 TID PRN 800 MG 00:00: tablet 00 Hydrochloro No QD 1 tablet thiazide 25 3-18 in the MG 00:00: morning 00 Orally Once a day hydroCHLORO Yes hydrochlor hy drochlo thiazide 3-03 othiazide rothiaz id (HYDRODIURI 00:00: 25 mg e 25 mg L) 25 MG 00 tablet tablet tablet hydrochloro No 1 Q1D hydrochlor thiazide othiazide 12.5 mg 12.5 mg tablet Take tablet 1 tablet Take 1 every day tablet by oral every day route. by oral route. ibuprofen No 1 TID ibuprofen 800 mg 800 mg tablet Take tablet 1 tablet 3 Take 1 times a day tablet 3 by oral times a route as day by needed. prn oral route acute as needed. migraine prn acute migraine verapamil No 1 TID verapamil 80 mg 80 mg tablet Take tablet 1 tablet 3 Take 1 times a day tablet 3 by oral times a route for day by 30 days. oral route for 30 days. Ventolin No 6xD 2 puffs as HFA 108 (90 needed Base) Inhalation MCG/ACT every 4 hrs Advair No BID 1 puff Diskus Inhalation 250-50 Twice a MCG/DOSE day Problems Condition Condition Condition Status Onset Resolution Last Treatin g Comments Name Details Category Date Date Treatment Clinician Date Migraine Migraine Problem Active 11-21 00:00: 00 Hypertensiv Hypertensiv Problem Active e disorder e Disorder 11-21 00:00: 00 Body mass Body mass Problem Active index 20-24 index (BMI) 4-29 - normal 23.0-23.9, 00:00: adult 00 Hemiplegia Hemiplegia Problem Active of dominant and 2-28 side as hemiparesis 00:00: late effect following 00 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 Essential Essential Problem Active hypertensio (primary) 2-28 n hypertensio 00:00: n 00 Uncomplicat Mild Problem Active ed mild persistent 09-01 persistent asthma, 00:00: asthma uncomplicat 00 ed Asthma Asthma, Problem Active without unspecified -12 status , 00:00: asthmaticus unspecified 00 status No known No known [id number] active active problems problems Procedures Procedure Date / Time Performed Performing Clinician Devic e EEG 2020-05-23 13:48:00 Mansi Fajardo FL LUMBAR PUNCTURE - RADIOLOGY 2020-05-23 11:40:21 Mansi Kruse GLUCOSE, CSF 2020-05-23 11:10:00 Mansi Fajardo CSF PROTEIN 2020-05-23 11:10:00 Mansi Fajardo CSF CELL COUNT WITH 2020-05-23 11:10:00 Magdalena Fajardo DIFFERENTIAL CSF IGG 2020-05-23 11:10:00 Mansi Fajardo CSF ALBUMIN ([facility]) 2020-05-23 11:10:00 Mansi Fajardo PERIPHERAL INTRAVENOUS DEVICE 2020-05-23 09:30:00 Mansi Calvillo BY VAT MRI NEURO OUTSIDE FILM FOR 2020-03-01 23:03:49 Mansi Baker i CONTINUED CARE MRI NEURO OUTSIDE FILM FOR 2020-03-01 23:03:36 Mansi Baker i CONTINUED CARE MRI NEURO OUTSIDE FILM FOR 2020-03-01 23:03:21 Mansi Baker i CONTINUED CARE MRI NEURO OUTSIDE FILM FOR 2020-03-01 23:03:07 Mansi Baker i CONTINUED CARE COMPREHENSIVE METABOLIC PANEL 2020-03-01 09:54:00 Erick Quinonez VITAMIN B12 2020-03-01 09:54:00 Aung Quinonez TSH 2020-03-01 09:54:00 Aung Quinonez BRANDON 2020-03-01 09:54:00 Aung Quinonez C-REACTIVE PROTEIN 2020-03-01 09:54:00 Aung Quinonez RHEUMATOID FACTOR, QUANT 2020-03-01 09:54:00 Aung Quinonez CBC W/ AUTO DIFF 2020-03-01 09:54:00 Aung Quinonez ANTI-NEUTROPHILIC CYTOPLASMIC 2020-03-01 09:54:00 Erick Quinonez ANTIBODY VITAMIN D 25 HYDROXY 2020-03-01 09:54:00 Aung Quinonez BETA-2 GLYCOPROTEIN ANTIBODIES 2020-03-01 09:54:00 Debora Quinonez THYROID PEROXIDASE ANTIBODY 2020-03-01 09:54:00 Alejandro Quinonez CARDIOLIPIN ANTIBODY, IGM/IGG 2020-03-01 09:54:00 Erick Quinonez EXTRACTABLE NUCLEAR ANTIGEN 2020-03-01 09:54:00 Alejandro Quinonez LUPUS INHIBITOR PANEL 2020-03-01 09:54:00 Aung Quinonez LUPUS INHIBITOR PANEL 2020-03-01 09:54:00 Aung Quinonez Results Test Description Test Time Test Comments Text Results Atomic Results Result Comments FL Lumbar Puncture - 2020-05-23 12:08:15 FL Lumb ar Puncture - Radiology (05/23/2020 Radiology 11:40 AM EST)SpecimenImpress ionsPerformed (05/23/2020 11:40 AM AtLumbar puncture us ing fluoroscopic EST) guidance.[facility] RADNarrativePer formed AtEXAM: Fluoroscopic guidance and lo calization of needle or catheter tip for s pine or paraspinous diagnostic or th erapeutic injection procedures.DATE: 07/23/2019 11:40 AMACCESSION: [id number]: 05/23/2020 12:08 PMINTERPRET ATION LOCATION: [facility] INDICATION: 35 years old Female with paul luation for CARDIAC CATHETERIZATION TECHNICIAN demyelinating disease vs autoimmune encephalopathy - R56.9 - S eizure - like activity (CMS - HCC) - R76.8 - Positive MICHAEL antibody - R90.82 - Whit e matter abnormality on MRI of brain COMPARISON: None. FLUOROSCOPY TIME: 0.6 minutes CONSENT: The potential risks and benefits of the procedure were discus sed and all questions were answered and written and verbal consent was obtained and documented by Dr. Chris Quarles. PROC EDURE: The patient was placed in a pron e position on the fluoroscopy table, and t he lower back was prepped and draped in th e usual sterile fashion. Local ane sthesia was provided at the selected pun cture site using approximately 6 mL of 1% buffered Lidocaine. Using sterile t echnique and intermittent fluoroscopic gu idance, a 20-gauge, 3.5 inch spinal ne edle was introduced into the thecal s ac at the L3-4 level. There was spontaneo us return of clear CSF. Approximately 1 2 mL total of CSF was collected. The sty let was replaced and the needle kishan jh. A bandaid was placed at the pu ncture site. No immediate complications w ere evident. ATTESTATION: Dr. Jevon lawson was present for the critical portions, a nd immediately available for the remainder of this procedure. [facility] RADProcedure NoteInterface, Rad Results In - 05/23/2020 2:10 PM ESTEXAM: Fluoroscopic guidan ce and localization of needle or ca theter tip for spine or paraspinous diagnos tic or therapeutic injection proced ures. DATE: 05/23/2020 11:40 AM ACCESSIO N: [id number] DICTATED: 05/05 12:08 PM INTERPRETATION LOCATION: [facility] CLINICAL INDICATION: 35 year s old Female with evaluation for CARDIAC CATHETERIZATION TECHNICIAN demy elinating disease vs autoimmune enceph alopathy - R56.9 - Seizure - like activ ity (CMS - HCC) - R76.8 - Positive MICHAEL antibody - R90.82 - White matter abnorm ality on MRI of brain COMPARISON: None. F LUOROSCOPY TIME: 0.6 minutes CONSENT: T he potential risks and benefits of the pr ocedure were discussed and all questions were answered and written and verbal conse nt was obtained and documented by Debora Quarles. PROCEDURE: The pat ient was placed in a prone position o n the fluoroscopy table, and the l ower back was prepped and draped in the [facility] sterile fashion. Local anesthesia wa s provided at the selected puncture site u sing approximately 6 mL of 1% buf fered Lidocaine. Using sterile alia hnique and intermittent fluoroscopic gu idance, a 20-gauge, 3.5 inch spinal ne edle was introduced into the thecal s ac at the L3-4 level. There was spontaneous return of clear CSF. Approximately 12 mL total of CSF was collected. The style t was replaced and the needle removed. A ba ndaid was placed at the puncture site. No immediate complications were evident. ATTESTATION: Dr. Jevon Fine was present fo r the critical portions, and immediately av ailable for the remainder of this proced ure. IMPRESSION: Lumbar puncture using fluoroscopic guidance.Dolly mclaughlin OrganizationAddressCity/Stat e/ZIP CodePhone NumberST. [facility] RADST[facility] R [id number] [facility] [place] [address] CSF ALBUMIN ([facility]) (05/23/2020 11:10 AM EST) 2020-05-23 11:10:00 Test Item Value Reference Range Comments Albumin, CSF (test code = Albumin, CSF) 23.0 mg/dL 5.0 - 35 .7 mg/dL CSF IGG (05/23/2020 11:10 AM EST)2020-05-23 11:10:00 Test Item Value Reference Range Comments IgG, CSF (test code = IgG, CSF) 3.4 mg/dL 0.5 - 7.0 mg/dL Glucose, CSF (05/23/2020 11:10 AM EST)2020-05-23 11:10:00 Test Item Value Reference Range Comments Glucose, CSF (test code = Glucose, CSF) 56 mg/dL 50 - 75 mg/dL CSF protein (05/23/2020 11:10 AM EST)2020-05-23 11:10:00 Test Item Value Reference Range Comments Protein, CSF (test code = Protein, CSF) 40 mg/dL 15 - 45 mg/dL CSF Analysis (05/23/2020 11:10 AM EST)2020-05-23 11:10:00 Test Item Value Reference Range Comments Tube # CSF (test code = Tube # CSF) Tube 1 Color, CSF (test code = Color, CSF) Colorless Appearance, CSF (test code = Appearance, CSF) Clear Nucleated Cells, CSF (test code = Nucleated Cells, 2 ul 0 - 5 ul CSF) RBC, CSF (test code = RBC, CSF) 336 ul 0 ul Neutrophil %, CSF (test code = Neutrophil %, CSF) 16.3 % Lymphs %, CSF (test code = Lymphs %, CSF) 53.5 % [place]ham/Macrophage %, CSF (test code = 27.9 % [place]/Macrophage %, CSF) Eosinophils %, CSF (test code = Eosinophils %, 2.3 % CSF) #Cells counted for Diff (test code = #Cells 43 counted for Diff) CSF Cell Count with Differential (05/23/2020 11:10 AM EST)2020-05-23 11:10:00 Test Item Value Reference Range Comments Tube # CSF (test code = Tube # CSF) Tube 4 Color, CSF (test code = Color, CSF) Colorless Appearance, CSF (test code = Appearance, CSF) Clear Nucleated Cells, CSF (test code = Nucleated Cells, 1 ul 0 - 5 ul CSF) RBC, CSF (test code = RBC, CSF) 47 ul 0 ul Neutrophil %, CSF (test code = Neutrophil %, CSF) 3.8 % Lymphs %, CSF (test code = Lymphs %, CSF) 80.8 % [place]illingham/Macrophage %, CSF (test code = 15.4 % [place]illingham/Macrophage %, CSF) #Cells counted for Diff (test code = #Cells 26 counted for Diff) EEG (05/23/2020 1:48 PM EST)2020-05-23 00:00:00EEG (05/23/2020 1:48 PM EST)SpecimenNarrativePerformed AtThis result has an attachment that is not av ailable.HISTORY Brooklynn Sterling is 35 y.o. years old female with evaluation of seizure or seizure like activity. PROCEDURE: Prolonged EEG was performed while awake utilizing 21 active electrodes placed according to the international 10-20 system. The study was recorded digitally with a bandpass of 1-70Hz and a sampling rate of 200Hz and was reviewed with the possibility of multiple reformatting. Start Time: 13:01 on 05/23/2020 End Time: 13:48 on 05/23/2020 TECHNICAL DESCRIPTION DETAIL: The record shows a good organization at rest, consisting of a 30-50 uV 10 Hz posterior dominant rhythm with good reactivity. There is a moderate bilateral beta activity. Drowsiness is characterized by attenuation of the background, vertex waves, and bilateral theta slowing. Stage II sleep is not recorded. Hyperventilation is not recommended. Photic stimulation induces a mild driving response and absence of abnormal discharges. EKG recording shows a regular heart rhythm of 100 bpm. IMPRESSION This prolonged EEG over 40 minutes, performed during awake and drowsy state, is within normal limits. CLINICAL INTERPRETATION UNCHCSNEUROPerforming OrganizationAddressCity/State/ZIP CodePhone NumberUNCHCSNEUROPeripheral Intravenous Device by Vascular Access Team (05/23/2020 9:30 AM EST)2020-05-23 00:00:00Peripheral Intravenous Device by Vascular Access Team (05/23/2020 9:30 AM EST)NarrativePerformed Estephanie Thacker RN 05/23/2020 10:53 AMOrder was placed for a "PIV by Venous Access Team (VAT)". Patient was assessed at bedside for placement of a PIV. Mask and protective eyewear were donned. Access was obtained. Blood return noted. Dressing intact and device well secured. Flushed with normal saline. Pt advised to inform RN of any s/s of discomfort at the PIV site. Workup / Procedure Time: 15 minutes Tech was notified. Thank you, Christin Thacker RN Venous Access Team UNCHCSVATPerforming OrganizationAddressCity/State/ZIP CodePhone [id number] RNA Resp Ql [id number] 00:00:00 Test Item Value Reference Range Comments SARS-CoV-2 RNA Resp Ql [facility]+probe (test code = ID: COVID [id number]) Anti-Nuclear Antibody (BRANDON) (03/01/2020 9:54 AM EDT)2020-03-01 09:54:00 Test Item Value Reference Range Comments Antinuclear Antibodies (BRANDON) (test code = Positive Negati ve Antinuclear Antibodies (BRANDON)) BRANDON Pattern 1 (test code = BRANDON Pattern 1) Speckled BRANDON Titer 1 (test code = BRANDON Titer 1) 1:80 Anti-neutrophilic Cytoplasmic Antibody (ANCA) (03/01/2020 9:54 AM EDT) 2020-03-01 09:54:00 Test Item Value Reference Range Comments ANCA Screen (test code = ANCA Screen) ANCA IFA (test code = ANCA IFA) Negative Negative MPO-Katharine (test code = MPO-Katharine) Negative Negative MPO-Quant (test code = MPO-Quant) 1.6 U/mL <21.0 U/mL PR3 Katharine (test code = PR3 Katharine) Negative Negative PR3-Quant (test code = PR3-Quant) 1.3 U/mL <21.0 U/mL Vitamin D 25 Hydroxy (25OH D2 + D3) (03/01/2020 9:54 AM EDT)2020-03-01 09:54:00 Test Item Value Reference Range Comments Vitamin D Total (25OH) (test code = Vitamin D 17.9 ng/mL 20 .0 - 80.0 ng/mL Total (25OH)) Vitamin B12 (03/01/2020 9:54 AM EDT)2020-03-01 09:54:00 Test Item Value Reference Range Comments Vitamin B-12 (test code = Vitamin B-12) 604 pg/ml 193 - 90 0 pg/ml Extractable Nuclear Antigen Screen (RANCHO) (03/01/2020 9:54 AM EDT)2020-03-01 09:54:00 Test Item Value Reference Range Comments RANCHO Screen (test code = RANCHO Screen) 0.10 RANCHO Units <0.70 RANCHO Un its Rheumatoid Factor, Quantitative (03/01/2020 9:54 AM EDT)2020-03-01 09:54:00 Test Item Value Reference Range Comments Rheumatoid Factor (test code = Rheumatoid Factor) <8.6 0.0 - 15.0 IU/mL Comprehensive Metabolic Panel (03/01/2020 9:54 AM EDT)2020-03-01 09:54:00 Test Item Value Reference Range Comments Sodium (test code = Sodium) 140 mmol/L 135 - 145 mmol/L Potassium (test code = Potassium) 3.3 mmol/L 3.5 - 5.0 mmol /L Chloride (test code = Chloride) 107 mmol/L 98 - 107 mmol/L Anion Gap (test code = Anion Gap) 10 mmol/L 7 - 15 mmol/L CO2 (test code = CO2) 23.0 mmol/L 22.0 - 30.0 mmol/L BUN (test code = BUN) 9 mg/dL 7 - 21 mg/dL Creatinine (test code = Creatinine) 0.72 mg/dL 0.60 - 1.00 mg/dL BUN/Creatinine Ratio (test code = 13 BUN/Creatinine Ratio) EGFR CKD-EPI Non-, Female >90 >=60 m L/min/1.73m2 (test code = EGFR CKD-EPI Non-, Female) EGFR CKD-EPI , Female (test >90 >=60 mL/min/1.73m2 code = EGFR CKD-EPI , Female) Glucose (test code = Glucose) 94 mg/dL 70 - 179 mg/dL Calcium (test code = Calcium) 9.6 mg/dL 8.5 - 10.2 mg/dL Albumin (test code = Albumin) 4.7 g/dL 3.5 - 5.0 g/dL Total Protein (test code = Total Protein) 7.9 g/dL 6.5 - 8.3 g/dL Total Bilirubin (test code = Total Bilirubin) 0.4 mg/dL 0. 0 - 1.2 mg/dL AST (test code = AST) 21 U/L 14 - 38 U/L ALT (test code = ALT) 15 U/L <35 U/L Alkaline Phosphatase (test code = Alkaline 61 U/L 38 - 126 U/L Phosphatase) TSH (03/01/2020 9:54 AM EDT)2020-03-01 09:54:00 Test Item Value Reference Range Comments TSH (test code = TSH) 3.270 uIU/mL 0.600 - 3.300 uIU/mL Thyroid Peroxidase Antibody (03/01/2020 9:54 AM EDT)2020-03-01 09:54:00 Test Item Value Reference Range Comments Thyroid Peroxidase Ab (test code = Thyroid 0.31 IU/mL 0.00 - 5.60 IU/mL Peroxidase Ab) C-reactive protein (03/01/2020 9:54 AM EDT)2020-03-01 09:54:00 Test Item Value Reference Range Comments CRP (test code = CRP) 6.8 mg/L <10.0 mg/L CBC w/ Differential (03/01/2020 9:54 AM EDT)2020-03-01 09:54:00 Test Item Value Reference Range Comments WBC (test code = WBC) 4.3 10*9/L 4.5 - 11.0 10*9/L RBC (test code = RBC) 4.31 10*12/L 4.00 - 5.20 10*12/L HGB (test code = HGB) 11.9 g/dL 12.0 - 16.0 g/dL HCT (test code = HCT) 37.7 % 36.0 - 46.0 % MCV (test code = MCV) 87.5 fL 80.0 - 100.0 fL MCH (test code = MCH) 27.7 pg 26.0 - 34.0 pg MCHC (test code = MCHC) 31.7 g/dL 31.0 - 37.0 g/dL RDW (test code = RDW) 14.4 % 12.0 - 15.0 % MPV (test code = MPV) 9.4 fL 7.0 - 10.0 fL Platelet (test code = Platelet) 267 10*9/L 150 - 440 10*9/L Neutrophils % (test code = Neutrophils %) 54.9 % Lymphocytes % (test code = Lymphocytes %) 37.6 % Monocytes % (test code = Monocytes %) 3.7 % Eosinophils % (test code = Eosinophils %) 1.0 % Basophils % (test code = Basophils %) 0.8 % Absolute Neutrophils (test code = Absolute 2.4 10*9/L 2.0 - 7.5 10*9/L Neutrophils) Absolute Lymphocytes (test code = Absolute 1.6 10*9/L 1.5 - 5.0 10*9/L Lymphocytes) Absolute Monocytes (test code = Absolute 0.2 10*9/L 0.2 - 0 .8 10*9/L Monocytes) Absolute Eosinophils (test code = Absolute 0.0 10*9/L 0.0 - 0.4 10*9/L Eosinophils) Absolute Basophils (test code = Absolute 0.0 10*9/L 0.0 - 0 .1 10*9/L Basophils) Large Unstained Cells (test code = Large 2 % 0 - 4 % Unstained Cells) LUPUS INHIBITOR PANEL (03/01/2020 9:54 AM EDT)2020-03-01 09:54:00 Test Item Value Reference Range Comments Dilute Viper Venom Time (test code = Dilute Viper 31.0 s 0.0 - 46.9 s Venom Time) APTT Lupus Anticoagulant (test code = APTT Lupus 36.8 s 0.0 - 48.2 s Anticoagulant) Anti-PL Interp (test code = Anti-PL Interp) Beta-2 Glycoprotein Antibodies (03/01/2020 9:54 AM EDT)2020-03-01 09:54:00 Test Item Value Reference Range Comments Beta-2 Glyco 1 IgG (test code = Beta-2 Glyco 1 IgG) 7 <20 Beta-2 Glyco 1 IgM (test code = Beta-2 Glyco 1 IgM) 6 <20 Cardiolipin Antibody, IgM/IgG (03/01/2020 9:54 AM EDT)2020-03-01 09:54:00 Test Item Value Reference Range Comments Anticardiolipin IgG (test code = Anticardiolipin 7 [GPL'U] 0 - 23 [GPL'U] IgG) Anticardiolipin IgM (test code = Anticardiolipin 5 [MPL'U] 0 - 11 [MPL'U] IgM) MRI Neuro Outside Film For Continued Care (03/01/2020 11:03 PM EDT)2020-03-01 00:00:00MRI Neuro Outside Film For Continued Care (03/01/2020 11:03 PM EDT)SpecimenNarrativePerformed AtThese images were imported for continued care purposes only. They will not be interpreted and no charges will apply.UNCHCSRADPerforming OrganizationAddressCity/State/ZipcodePhone NumberUNCHCSRADMRI Neuro Outside Film For Continued Care (03/01/2020 11:03 PM EDT)2020-03-01 00:00:00MRI Neuro Outside Film For Continued Care (03/01/2020 11:03 PM EDT)SpecimenNarrativePerformed AtThese images were imported for continued care purposes only. They will not be interpreted and no charges will apply.UNCHRADPerforming OrganizationAddressCity/State/ZipcodePhone NumberUNCHCSRADMRI Neuro Outside Film For Continued Care (03/01/2020 11:03 PM EDT)2020-03-01 00:00:00MRI Neuro Outside Film For Continued Care (03/01/2020 11:03 PM EDT)SpecimenNarrativePerformed AtThese images were imported for continued care purposes only. They will not be interpreted and no charges will apply.UNCHCSRADPerforming OrganizationAddressCity/State/ZipcodePhone NumberUNCHCSRADMRI Neuro Outside Film For Continued Care (03/01/2020 11:03 PM EDT)2020-03-01 00:00:00MRI Neuro Outside Film For Continued Care (03/01/2020 11:03 PM EDT)SpecimenNarrativePerformed AtThese images were imported for continued care purposes only. They will not be interpreted and no charges will apply.UNCHCSRADPerforming OrganizationAddressCity/State/ZipcodePhone NumberUNCHCSRAD Assessments Condition Name Status Diagnosis Date Treating Clinici an Hemiplegic migraine Active 2019-11-22 10:51:40 Weakness of right leg Active 2019-11-22 10:53:06 Weakness of right arm Active 2019-11-22 10:53:13 - Hemiplegia and hemiparesis Active Oje buoboh, [place] following cerebral infarction affecting right dominant side I69.351 - Body mass index (BMI) 23.0-23.9, Active Ojebuoboh, [place] adult Z68.23 - Essential (primary) hypertension Active Ojebuoboh, [place] I10 - Hemiplegia and hemiparesis Active Oje buoboh, [place] following cerebral infarction affecting right dominant side I69.351 - Body mass index (BMI) 23.0-23.9, Active Ojebuoboh, [place] adult Z68.23 - Asthma, unspecified, unspecified Active Ojebuoboh, [place] status 493.90 Weakness Unknown Encounters Start End Encounter Admission Attending Care Care Encounter ID Date/Time Date/Time Type Type Clinicians Facility Department 2020-07-19 2020-07-19 Outpatient [facility] [id number] 00:00:00 00:00:00 2020-07-12 2020-07-12 Outpatient [facility] [id number] 00:00:00 23:59:00 [id number] 2020-07-12 2020-07-12 Outpatient [facility] [id number] 00:00:00 00:00:00 2020-07-12 2020-07-12 Outpatient [facility] [id number] 00:00:00 00:00:00 2020-07-11 2020-07-11 Outpatient [facility] [id number] 00:00:00 00:00:00 2020-07-11 2020-07-11 Outpatient [facility] [id number] 00:00:00 00:00:00 2020-07-10 2020-07-10 [facility] [id number] 16:31:40 23:59:00 [id number] 2020-07-10 2020-07-10 [facility] [id number] 16:31:40 17:31:40 2020-07-10 2020-07-10 [facility] [id number] 00:00:00 00:00:00 [id number] 2020-07-10 2020-07-10 [facility] [id number] 00:00:00 00:00:00 2020-07-10 2020-07-10 [facility] [id number] 00:00:00 00:00:00 2020-07-10 2020-07-10 [facility] [id number] 00:00:00 00:00:00 2020-07-10 2020-07-10 [facility] [id number] 00:00:00 00:00:00 2020-07-09 2020-07-09 [facility] [id number] 00:00:00 00:00:00 2020-07-09 2020-07-09 [facility] [id number] 00:00:00 00:00:00 2020-07-02 2020-07-02 Outpatient [facility] [id number] 00:00:00 23:59:00 [id number] 2020-07-02 2020-07-02 [facility] [id number] 16:00:00 16:30:00 2020-07-02 2020-07-02 [facility] [id number] 00:00:00 00:00:00 2020-06-25 2020-06-25 [facility] [id number] 00:00:00 00:00:00 2020-06-04 2020-06-04 [facility] [id number] 00:00:00 00:00:00 2020-06-03 2020-05-28 Outpatient [facility] [id number] 10:42:07 23:59:00 [id number] 2020-05-28 2020-05-28 Outpatient [facility] [id number] 00:00:00 00:00:00 [id number] 2020-05-28 2020-05-28 [facility] [id number] 00:00:00 00:00:00 2020-05-28 2020-05-28 [facility] [id number] 00:00:00 00:00:00 2020-05-27 2020-05-27 [facility] [id number] 00:00:00 00:00:00 2020-05-27 2020-05-27 [facility] [id number] 00:00:00 00:00:00 2020-05-24 2020-05-24 [facility] [id number] 00:00:00 00:00:00 2020-05-23 2020-05-23 Outpatient [facility] NGOZI HAE [facility] [id number] 09:15:16 23:59:00 [id number] 2020-05-23 2020-05-23 [facility] [id number] 09:15:16 23:59:00 2020-05-23 2020-05-23 Outpatient [facility]IC [facility] [id number] 09:14:15 23:59:00 LEXY [id number] MANSI 5 2020-05-23 2020-05-23 [facility] [id number] 09:14:15 23:59:00 2020-05-23 2020-05-23 Outpatient [facility] ARJUN MELVIN [facility] [id number] 00:00:00 00:00:00 [id number] 2020-04-18 2020-04-18 Outpatient [facility] [id number] 00:00:00 23:59:00 [id number] 2020-04-18 2020-04-18 [facility] [id number] 12:00:00 12:30:00 2020-04-09 2020-04-09 Outpatient [facility] [id number] 00:00:00 00:00:00 [id number] 2020-04-09 2020-04-09 [facility] [id number] 00:00:00 00:00:00 2020-03-22 2020-03-22 [id number] 15:17:26 15:17:26 TARA 2020-03-22 2020-03-[address] [facility] [id number] 00:00:00 00:00:00 2020-03-20 2020-03-20 [facility] [id number] 00:00:00 00:00:00 2020-03-12 2020-03-12 [facility] [id number] 00:00:00 00:00:00 2020-03-12 2020-03-12 [id number] 00:00:00 00:00:00 PA PA 2020-03-11 2020-03-11 [facility] [id number] 00:00:00 00:00:00 2020-03-08 2020-03-08 [facility] [id number] 00:00:00 00:00:00 2020-03-07 2020-03-07 [facility] [id number] 00:00:00 00:00:00 PA 2020-03-06 2020-03-06 [facility] [id number] 00:00:00 00:00:00 2020-03-05 2020-03-05 [facility] [id number] 00:00:00 00:00:00 2020-03-02 2020-03-02 [facility] [id number] 00:00:00 00:00:00 2020-03-02 2020-03-02 [facility] [id number] 00:00:00 00:00:00 2020-03-01 2020-03-01 Outpatient [facility] [id number] 22:17:00 23:59:00 LEXY, [id number] MANSI 0 2020-03-01 2020-03-01 [facility] [id number] 22:17:00 23:59:00 2020-03-01 2020-03-01 [facility] [id number] 22:16:13 23:59:00 2020-03-01 2020-03-01 Outpatient [facility] [id number] 22:16:12 23:59:00 LEXY [id number] MANSI 2 2020-03-01 2020-03-01 [facility] [id number] 21:56:42 23:59:00 2020-03-01 2020-03-01 Outpatient [facility] [id number] 21:56:42 23:59:00 LEXY [id number] MANSI 2 2020-03-01 2020-03-01 [facility] [id number] 21:54:56 23:59:00 2020-03-01 2020-03-01 Outpatient [facility] [id number] 21:54:56 23:59:00 LEXY [id number] MANSI 6 2020-03-01 2020-03-01 Outpatient [facility] [id number] 07:53:55 23:59:00 [id number] 2020-03-01 2020-03-01 [facility] [id number] 07:53:55 08:53:55 2020-03-01 2020-03-01 Outpatient [facility] [id number] 00:00:00 00:00:00 [id number] 2020-03-01 2020-03-01 [facility] [id number] 00:00:00 00:00:00 2020-02-28 2020-02-28 [facility]patient [facility] [id number] 00:00:00 00:00:00 2020-02-08 2020-02-08 [facility] [id number] 00:00:00 00:00:00 2019-11-22 2019-11-22 [place] [id number] 00:00:00 00:00:00 [place], Urgent Urgent 20 PA-C [facility]: [facility] [id number], [place] [address], Ph. 2019-11-08 2019-11-08 [facility] [id number] 00:00:00 00:00:00 PA PA 2019-10-31 2019-10-31 [facility] [id number] 00:00:00 00:00:00 PA PA 2019-09-20 2019-09-20 [facility] [id number] 00:00:00 00:00:00 PA PA 2019-09-19 2019-09-19 [facility] [id number] 00:00:00 00:00:00 PA PA 2019-09-11 2019-09-11 [facility] [id number] 00:00:00 00:00:00 PA PA 2019-09-01 2019-09-01 [facility] [id number] 00:00:00 00:00:00 PA PA 2012-12-16 2012-12-16 [facility] [id number] 00:00:00 00:00:00 PA PA 2012-11-11 2012-11-11 [facility] [id number] 00:00:00 00:00:00 PA PA Payers Payer Name Policy Type Policy Number Effective Date Expiration D ate [employer] BLUE [id number] 2019 00:00:00 OPTIONS/PPO/ADV Plan of Treatment Planned Activity Planned Date Details Comments Future Scheduled Test [code = ] Future Scheduled Test [code = ] Future Scheduled Test [code = ] Future Scheduled Test [code = ] Future Scheduled Test [code = ] Future Scheduled Test [code = ] Future Scheduled Test [code = ] Future Scheduled Test [code = ] Future Scheduled Test [code = ] Future Scheduled Test [code = ] Future Scheduled Test [code = ] Future Scheduled Test [code = ] Future Scheduled Test [code = ] Future Scheduled Test [code = ] Future Scheduled Test [code = ] Future Scheduled Test [code = ] Future Scheduled Test [code = ] Future Scheduled Test [code = ] Future Scheduled Test [code = ] Future Scheduled Test [code = ] Future Scheduled Test [code = ] Future Scheduled Test [code = ] Future Scheduled Test [code = ] Future Scheduled Test [code = ] Future Scheduled Test [code = ] Future Scheduled Test [code = ] Future Scheduled Test [code = ] Future Scheduled Test [code = ] Future Scheduled Test [code = ] Future Scheduled Test [code = ] Future Scheduled Test [code = ] Future Scheduled Test [code = ] Future Scheduled Test [code = ] Future Scheduled Test [code = ] Future Scheduled Test [code = ] Future Scheduled Test [code = ] Future Scheduled Test [code = ] Future Scheduled Test [code = ] Future Scheduled Test [code = ] Future Scheduled Test [code = ] Future Scheduled Test [code = ] Future Scheduled Test [code = ] Future Scheduled Test [code = ] Future Scheduled Test [code = ] Future Scheduled Test [code = ] Future Scheduled Test [code = ] Future Scheduled Test [code = ] Future Scheduled Test [code = ] Future Scheduled Test [code = ] Future Scheduled Test [code = ] Future Scheduled Test [code = ] Future Scheduled Test [code = ] Future Scheduled Test [code = ] Future Scheduled Test [code = ] Social History Social Habit Start Date Stop Date Comments Exposure to SARS-CoV-2 (event) History SDOH Alcohol Std Drinks History SDOH Alcohol Binge Tobacco smoking status NHIS 2020-07-10 00:00:00 2020-07-10 00:00 :00 Alcohol intake 2020-07-10 00:00:00 2020-07-10 00:00:00 Tobacco use and exposure 2020-03-22 00:00:00 2020-03-22 00:00:00 History SDOH Alcohol Frequency 2020-03-01 00:00:00 2020-03-01 00 :00:00 Smoking Status Start Date Stop Date Unknown If Ever Smoked Never smoker 2020-03-22 00:00:00 Vital Signs Vital Name Observation Time Observation Value Comments Systolic blood pressure 2020-03-22 15:19:00 128 mm[Hg] Diastolic blood pressure 2020-03-22 15:19:00 86 mm[Hg] Heart rate 2020-03-22 15:19:00 92 /min Body temperature 2020-03-22 15:19:00 36.56 Lore Respiratory rate 2020-03-22 15:19:00 18 /min Body height 2020-03-22 15:19:00 162.6 cm Body weight 2020-03-22 15:19:00 69.9 kg BMI 2020-03-22 15:19:00 26.45 kg/m2 BP Diastolic 2019-11-22 00:00:00 94 mm[Hg] BP Systolic 2019-11-22 00:00:00 136 mm[Hg] blood pressure diastolic 2019-09-11 14:15:00 91 mm[Hg] height 2019-09-11 14:15:00 65 [in_us] weight 2019-09-11 14:15:00 143 [lb_av] bmi 2019-09-11 14:15:00 23.79 kg/m2 heart rate 2019-09-11 14:15:00 88 /min temperature 2019-09-11 14:15:00 98 [degF] blood pressure systolic 2019-09-11 14:15:00 127 mm[Hg] height 2019-09-11 14:15:00 65 [in_us] weight 2019-09-11 14:15:00 143 [lb_av] bmi 2019-09-11 14:15:00 23.79 kg/m2 heart rate 2019-09-11 14:15:00 88 /min temperature 2019-09-11 14:15:00 98 [degF] blood pressure systolic 2019-09-11 14:15:00 127 mm[Hg] blood pressure diastolic 2019-09-11 14:15:00 91 mm[Hg] height 2019-09-01 14:45:00 65 [in_us] weight 2019-09-01 14:45:00 143 [lb_av] bmi 2019-09-01 14:45:00 23.79 kg/m2 heart rate 2019-09-01 14:45:00 58 /min blood pressure systolic 2019-09-01 14:45:00 110 mm[Hg] blood pressure diastolic 2019-09-01 14:45:00 74 mm[Hg] Systolic blood pressure 2020-07-10 16:39:00 172 mm[Hg] Diastolic blood pressure 2020-07-10 16:39:00 113 mm[Hg] Heart rate 2020-07-10 16:39:00 96 /min Body temperature 2020-07-10 16:39:00 36.72 Lore Respiratory rate 2020-07-10 16:39:00 18 /min Body height 2020-07-10 16:39:00 165.1 cm Body weight 2020-07-10 16:39:00 69.854 kg Oxygen saturation in Arterial blood by 2020-07-10 16:39:00 100 % Pulse oximetry Body height 2020-04-17 10:49:00 165.1 cm Body weight 2020-04-17 10:49:00 69.854 kg Systolic blood pressure 2020-03-01 07:56:00 115 mm[Hg] Diastolic blood pressure 2020-03-01 07:56:00 84 mm[Hg] Heart rate 2020-03-01 07:56:00 71 /min Body height 2020-03-01 07:56:00 165.1 cm Body weight 2020-03-01 07:56:00 72.394 kg Hospital Discharge Instructions 1. Hemiplegic migraine verapamil 80 mg tablet ibuprofen 800 mg tablet neurology referral recurring migraine headache: care instructions 2. Weakness of right leg 3. Weakness of right armDiscussion Note RTC or go to ER if any new/worsening Sx, if no sx improvement over next 2-3 days or if sx not completely resolved within 2 wks, pt verbalized complete understanding and is in agreement with plan above, UC visit f/u pcp to address quality measures ALL RECORDS FROM ER AND HOSPITAL ADMISSION 09/04/19-09/06/19 REVIEWED PRIOR TO SEEING PT
--- NOTE | 2020-07-24 22:55 | RADIOLOGY REPORT (SQ) ---
EXAM DESCRIPTION: MR THORACIC SPINE WITHOUT THEN WITH IV CONTRAST, MR LUMBAR SPINE WITHOUT THEN WITH IV CONTRAST COMPLETED DATE/TME: 07/24/2020 21:50 CLINICAL HISTORY: 35 years, Female, Hx. neurological disorder, recent loss of bowel and bladder control COMPARISON: None. TECHNIQUE: Pre and post contrast-enhanced multiplanar multiecho MR imaging of the thoracic spine and lumbar spine was performed utilizing 10 mL ProHance intravenously. Images stored on PACS. LIMITATIONS: None. FINDINGS: MRI thoracic spine pre and post contrast: Vertebral body heights and alignment are maintained. Bone marrow signal is within normal limits. Thoracic spinal cord signal appears maintained allowing for some limitation by motion artifact. No focal disc protrusion or significant spinal canal stenosis or neural foraminal stenosis is seen. No mass lesion is identified. There is no abnormal enhancement. MRI lumbar spine pre and post contrast: Lumbar vertebral body heights and alignment are maintained. There is no suspicious marrow signal abnormality. Conus medullaris is at the L1 level and appears within normal limits. No evidence of mass or abnormal enhancement is seen. Desiccation and mild generalized central disc protrusion are noted at L4-5 without significant acquired spinal canal stenosis or neural foraminal stenosis. Mild generalized disc bulge is noted at L5-S1 without significant spinal canal stenosis or neural foraminal stenosis. Remaining lumbar disc levels are unremarkable. IMPRESSION: Mild broad-based disc protrusion at L4-5 and mild disc bulge at L5-S1 without significant acquired spinal canal stenosis or neural foraminal stenosis. No other significant finding is identified about the thoracic spine or lumbar spine. copyright 2010 [employer]- All Rights Reserved
--- NOTE | 2020-07-24 23:02 | ER Document Report ---
ED General - General Chief Complaint: Other Stated Complaint: URINATION AND BOWEL PROBLEM Time Seen by Provider: 07/24/20 17:32 Primary Care Provider: VALERIE LEE MD [Primary Care Provider] - Follow up as needed Notes: Patient is a 35-year-old female who comes emergency department for chief complaint of having bowel movements that she is not feeling. Patient also states that she has noticed this over the past week. She wears a brief and has a solid tire finisher who changes her already but she told the solid tire finisher that she did not realize she was going to have a bowel movement. She also states that she will randomly urinate although she can intentionally urinate if needed. She has an ongoing neurology work-up at [facility], she has a follow-up on Wednesday as well for this for additional testing. She has no official diagnosis at this time. She is wheelchair-bound, has had right-sided weakness for over a year and has developed left-sided weakness over the past several months that required her to be wheelchair-bound. Apparently the right-sided weakness is over the entire right side but mainly over the leg and left-sided weakness is mainly leg as well. She is treated for hypertension, migraines, and follows with local primary care as well. She denies any pain, sick symptoms, fever/chills, nause a/vomiting, or any other complaints. TRAVEL OUTSIDE OF THE [place] IN LAST 30 DAYS: No - Related Data Allergies/Adverse Reactions: Penicillins Allergy (Verified 07/24/20 17:32) Home Medications: losartan. potassium. megestrol. topiramate. vitamin d Past Medical History - General Information source: Patient - Social History Smoking Status: Never Smoker Chew tobacco use (# tins/day): No Frequency of alcohol use: None Drug Abuse: None Lives with: Family Family History: Reviewed & Not Pertinent, CVA - 1480 Patient has homicidal ideation: No - Past Medical History Cardiac Medical History: Reports: Hx Hypertension Pulmonary Medical History: Reports: Hx Asthma Renal/ Medical History: Denies: Hx Peritoneal Dialysis Psychiatric Medical History: Denies: Hx Depression Surgical Hx: Negative - Immunizations Hx Diphtheria, Pertussis, Tetanus Vaccination: Yes Review of Systems - Review of Systems Constitutional: No symptoms reported EENT: No symptoms reported Cardiovascular: No symptoms reported Respiratory: No symptoms reported Gastrointestinal: No symptoms reported Genitourinary: No symptoms reported Female Genitourinary: No symptoms reported Musculoskeletal: See HPI Skin: No symptoms reported Hematologic/Lymphatic: No symptoms reported Neurological/Psychological: See HPI Physical Exam - Vital signs Vitals: Temp Pulse Resp BP Pulse Ox 98.9 F 89 16 133/95 H 100 07/24/20 16:55 07/24/20 16:55 07/24/20 16:55 07/24/20 16:55 07/24/20 16:55 - Notes Notes: GENERAL: Alert, interacts well. No acute distress. Playing on her phone HEAD: Normocephalic, atraumatic. EYES: Pupils equal, round, and reactive to light. Extraocular movements intact. ENT: Oral mucosa moist, tongue midline. Oropharynx unremarkable. Airway patent. NECK: Full range of motion. Supple. Trachea midline. No lymphadenopathy. LUNGS: Clear to auscultation bilaterally, no wheezes, rales, or rhonchi. No respiratory distress. Non-tender chest wall. HEART: Regular rate and rhythm. No murmur ABDOMEN: Soft, non-tender. Non-distended. EXTREMITIES: Limited exam. Patient will not or is unable to move her right lower extremity and will not move her left lower extremity even though she states sometimes she can. Normal distal pulses and sensation, no discoloration or wounds, no edema. Upper extremities unremarkable. RECTAL: No tenderness, lesions, gross bleeding. Rectal tone is strong. Exam performed with Carol RN at bedside. BACK: no cervical, thoracic, lumbar midline tenderness. No saddle anesthesia. No signs of trauma. NEUROLOGICAL: Alert and oriented x3. Normal speech. Cranial nerves II through XII grossly intact. PSYCH: Normal affect, normal mood. SKIN: Warm, dry, normal turgor. No rashes or lesions noted. Course - Re-evaluation Re-evalutation: Patient is smiling, laughing, well-appearing. She was playing with her phone using her right arm despite reported right-sided deficits when I first evaluated the patient. She does not have any saddle anesthesia, she actually has strong rectal tone on my evaluation. I did review laboratory work-up including CBC, chemistry, urinalysis, these are unremarkable. I did review MRI performed by triage as well, these show some bulging disks in the lumbar area but no spinal cord compression or emergent findings are noted. I discussed with patient, she immediately requests copies of her results, states appreciation, states she is ready to go. I did discuss return precautions with patient and solid tire finisher, they state understanding and agreement. Stable and well- appearing at time of discharge. - Vital Signs Vital signs: Temp Pulse Resp BP Pulse Ox 98.2 F 80 18 128/90 H 100 07/25/20 00:55 07/25/20 00:55 07/25/20 00:55 07/25/20 00:55 07/25/20 00:55 - Laboratory Results Result Diagrams: 07/24/20 18:00 07/24/20 18:00 Laboratory Results Interpreted: 07/24/20 07/24/20 07/24/20 18:00 18:00 20:10 Hct 35.3 L RDW 15.6 H Lymph % (Auto) 50.0 H Chloride 113 H Carbon Dioxide 20 L Urine Urobilinogen 2.0 H Critical Laboratory Results Reviewed: No Critical Results - Radiology Results Critical Radiology Results Reviewed: No Critical Results Discharge - Discharge Clinical Impression: Bowel and bladder incontinence Condition: Stable Disposition: HOME, SELF-CARE Additional Instructions: Your imaging shows some disc protrusion in your lower back which can cause symptoms such as nerve pain and muscle spasms, however no other concerning findings are noted on your evaluation today. Follow-up with your provider with your appointment, bring your imaging and reports for additional management. Return for any concerning or worsening symptoms including developing pain, vomiting, fever, developing new numbness, or any other concerning or worsening symptoms. Referrals: VALERIE LEE MD [Primary Care Provider] - Follow up as needed
[2020-07-25 01:00] VITALS: BP 128/90
== END 2020-07-25 00:59 | disposition home or self-care (01) ==
LOC: ER 16:15
DX: R15.9 Full incontinence of feces (principal); R32 Unspecified urinary incontinence; M51.87 Other intervertebral disc disorders, lumbosacral region; M51.26 Other intervertebral disc displacement, lumbar region; R53.1 Weakness; J45.909 Unspecified asthma, uncomplicated; I10 Essential (primary) hypertension; G43.909 Migraine, unspecified, not intractable, without status migrainosus; Z79.899 Other long term (current) drug therapy; Z99.3 Dependence on wheelchair; Z88.0 Allergy status to penicillin
CPT/HCPCS: 99284; 36415; 85025; 80053; 81001; 72157; 72158; A9576